=== PATIENT | male | born 1990 | race Caucasian/White ===

== ENCOUNTER → 2022-10-19 15:02 | Outpatient (BNVA) | payer MEDICAID, SELFPAY | PROVIDERS: Referring Provider Nurse Practitioner; Visit Provider Internal Medicine | DX: E11.9 Type 2 diabetes mellitus without complications (principal) | CPT/HCPCS: 80048; 84681; 86337; 86341 ==

== ENCOUNTER 2024-06-07 18:22 | Inpatient (IN) | payer OTHER, MEDICAID, SELFPAY ==
[2024-06-07] VITALS (11 sets, daily range): BP systolic 100–126; BP diastolic 46–76; PULSE 87–102; RESP 17–20; TEMP 36.6; O2SAT 98–100; BMI 19.8
[2024-06-07 18:51] LABS: Glucose Point of Care > 600 mg/dL (70-110)
--- NOTE | 2024-06-07 18:57 | XRR_ITS ---
PROCEDURE INFORMATION: Exam: XR Chest Exam date and time: 06/07/2024 7:26 PM Age: 34 years old Clinical indication: Pain; Chest pressure; Additional info: Chest pain TECHNIQUE: Imaging protocol: Radiologic exam of the chest. Views: 1 view. COMPARISON: No relevant prior studies available. FINDINGS: Lungs: Unremarkable. No consolidation. Pleural spaces: Unremarkable. No pleural effusion. No pneumothorax. Heart/Mediastinum: Unremarkable. No cardiomegaly. Bones/joints: Unremarkable. XR/XR chest 1V portable [id number] IMPRESSION: No acute findings.
--- NOTE | 2024-06-07 19:01 | W.ED.WEAKNES ---
HPI - Weakness General: Chief complaint: Weakness Stated complaint: weak, leg sore, tired, Time Seen by Provider: 06/07/24 18:49 History of Present Illness: Patient is a type I diabetic who has been out of all of his insulin for over 2 weeks. For the prior 2 weeks he was out of his strips and was only dosing 10 units of Lantus and 10 units of NovoLog daily. He has been feeling weak with a constant unquenchable thirst urinating a lot. Patient reports he is homeless but he just got into a detention, patient has been in DKA in the past. Last time was about 3 months ago. Blood sugar in the read high in triage Review of Systems General: Reports: 10 or more systems reviewed and unremarkable except in HPI and below PFSH ED PFSH: Medical History Asthma Diabetes Family History Other Hypertension Physical Exam Const: COMMON NORMALS: no acute distress, average body habitus, patient oriented x3, no limitations, healthy appearing, alert and well nourished HENMT: COMMON NORMALS: normocephalic, atraumatic, hearing grossly normal bilaterally, external ears normal, Normal external nose present and moist oral mucous membranes HEAD & SCALP: normocephalic and atraumatic NOSE: Normal external nose present EXTERNAL EAR: Yes external ears normal Neck/C-Spine: COMMON NORMALS: no JVD Chest: COMMONS NORMALS: normal inspection of the chest and normal palpation of entire chest wall Resp: COMMON NORMALS: normal respiratory effort, No retractions, No use of accessory muscles and clear to auscultation bilaterally AUSCULTATION: clear to auscultation bilaterally Cardio: COMMON NORMALS: no JVD, regular rate, regular rhythm, S1 normal heart sound present, S2 normal heart sound present, No gallops present (Cardio), No clicks present (Cardio), No murmurs present (Cardio) and No rub (Cardio) RATE: regular rate RHYTHM: regular rhythm HEART SOUNDS: S1 normal heart sound present and S2 normal heart sound present GI: COMMON NORMALS: Normal to inspection, nondistended, normoactive bowel sounds present, Soft to palpation, non-tender, No hepatosplenomegaly present and no masses PALPATION: Yes Soft to palpation and Yes No hepatosplenomegaly present Neuro: COMMON NORMALS: patient oriented x3 SENSORIUM/ORIENTATION: Yes alert Course Vital Signs: Vital signs: Vital Signs Temperature 97.8 F 06/07/24 18:39 Pulse Rate 98 06/07/24 19:16 Respiratory Rate 18 06/07/24 18:39 Blood Pressure 100/46 06/07/24 19:16 Pulse Oximetry 100 06/07/24 19:16 Oxygen Delivery Me thod Room Air 06/07/24 19:16 MDM - Weakness Medical Decision Making Patient blood sugar came back at 736, his pH is 7.2 with serum positive ketones, patient was bolused 20 units of fast acting insulin and a liter normal saline, Dr. Paul was consulted who agreed to place patient in ICU for further evaluation and treatment. We will keep the patient on 100 cc of normal saline an hour and start the DKA protocol. Medical Records I reviewed the patient's medical records. Lab Data I reviewed the patient's lab results. 06/07/24 19:01 06/07/24 19:01 Laboratory Results WBC 6.37 10^3/uL (3.29-11.43) 06/07/24 19:01 RBC 5.18 10^6/uL (3.85-5.65) 06/07/24 19:01 Hgb 15.40 g/dL (11.27-16.99) 06/07/24 19:01 Hct 45.2 % (37-53) 06/07/24 19: MCV 87.3 fl (82-101) 06/07/24 19: MCH 29.7 pg (27-33) 06/07/24 19:01 MCHC 34.1 g/dL (30-55) 06/07/24 19:01 RDW 12.0 % (12.1-15.1) L 06/07/24 19: Plt Count 288 10^3/cmm (157-399) 06/07/24 19: MPV 9.7 fL (7.4-10.4) 06/07/24 19: Neut % (Auto) 61.6 % 06/07/24 19: Lymph % (Auto) 27.3 % 06/07/24 19: [place] % (Auto) 7.5 % 06/07/24 19:01 Eos % (Auto) 2.0 % 06/07/24 19:01 Baso % (Auto) 1.1 % 06/07/24 19:01 Neut # (Auto) 3.92 10^3/uL (1.8-7.7) 06/07/24 19:01 Lymph # (Auto) 1.7 10^3/uL (0.8-4.8) 06/07/24 19:01 [place] # (Auto) 0.5 10^3/uL (0.2-0.9) 06/07/24 19:01 Eos # (Auto) 0.1 10^3/uL (0.0-0.8) 06/07/24 19:01 Baso # (Auto) 0.1 10^3/uL (0.0-0.1) 06/07/24 19:01 Nucleated RBC % (auto) 0 % 06/07/24 19:01 Nucleated RBCs # 0.0 /100WBC 06/07/24 19:01 Specimen Type Arterial 06/07/24 19:10 Sample Site Brachial, right 06/07/24 19:10 ABG pH 7.26 (7.35-7.45) L 06/07/24 19:10 ABG pCO2 20.0 mmHg (35-45) L 06/07/24 19:10 ABG pO2 114.0 mmHg (80.0-100.0) H 06/07/24 19:10 ABG PO2/FiO2 Ratio 542 06/07/24 19:10 ABG HCO3 8.9 mmol/L (22-26) L 06/07/24 19:10 ABG O2 Saturation 98.8 06/07/24 19:10 ABG Base Excess -16.0 mmol/L (-2.0-2.0) L 06/07/24 19:10 Yang Test N/a 06/07/24 19:10 A-a O2 Gradient 1.1 mmHg (5-10) L 06/07/24 19:10 Hematocrit 43.4 % (42-52) 06/07/24 19:10 Hgb O2 Saturation 95.5 % (95-100) 06/07/24 19:10 Carboxyhemoglobin 2.6 %THgb (0.4-20.1) 06/07/24 19:10 Methemoglobin 0.7 % (0.4-1.5) 06/07/24 19:10 Total Hemoglobin 14.2 g/dL (14-18) 06/07/24 19:10 Sodium 129.0 mmol/L (131-143) L 06/07/24 19:10 Potassium 3.9 mmol/L (3.5-5.0) 06/07/24 19:10 Glucose 667.0 mg/dL (70-115) H 06/07/24 19:10 Ionized Calcium 1.2 mmol/L (1.1-1.4) 06/07/24 19:10 O2 Delivery Device None 06/07/24 19:10 FiO2 21.0 % 06/07/24 19:10 Hearing Instrument Specialist ID Logan 06/07/24 19:10 Sodium 125 mmol/L (136-145) L 06/07/24 19:01 Potassium 4.3 mmol/L (3.5-5.1) 06/07/24 19:01 Chloride 89 mmol/L (98-107) L 06/07/24 19:01 Carbon Dioxide 13 mmol/L (22-29) L 06/07/24 19:01 Anion Gap 27.3 (5-19) H 06/07/24 19:01 BUN 11 mg/dL (6-20) 06/07/24 19:01 Creatinine 0.9 mg/dL (0.7-1.2) 06/07/24 19:01 GFR Calculation 96.0 mL/min (90-130) 06/07/24 19:01 Glucose 736 mg/dL (65-115) H* 06/07/24 19:01 POC Glucose > 600 mg/dL (70-110) H* 06/07/24 18:41 Calculated Osmolality 295 mOsm/kg (285-295) 06/07/24 19:01 Calcium 8.5 mg/dL (8.5-10.5) 06/07/24 19:01 Magnesium 2.0 mg/dL (1.7-2.3) 06/07/24 19:01 Total Bilirubin 0.2 mg/dL (0.15-1.2) 06/07/24 19:01 AST 14 U/L (0-40) 06/07/24 19:01 ALT 22 U/L (0-41) 06/07/24 19:01 Alkaline Phosphatase 108 U/L (40-130) 06/07/24 19:01 Troponin T Baseline < 6 ng/L (0-15) 06/07/24 19:01 Total Protein 6.6 g/dL (6.6-8.7) 06/07/24 19:01 Albumin 4.3 g/dL (3.5-5.2) 06/07/24 19:01 Globulin 2.3 g/dL (1.3-4.6) 06/07/24 19:01 Serum Ketones Positive (Negative) H 06/07/24 19:01 All radiology interpretation(s) finalized by discharge Discharge Plan Discharge Patient Disposition: Admitted As Inpatient Clinical Impression: DKA (diabetic ketoacidosis), Non-compliance Condition: Stable Prescriptions: No Action (DME) Dexcom G7 Surgical Physician Assistant Misc See Rx Instructions .Route Qty: 1 0RF Rx Instructions: As directed (DME) Dexcom G7 Sensor Device See Rx Instructions .[facility] Qty: 6 0RF Rx Instructions: Change every 10days (DME) OneTouch Ultra Test Strip See Rx Instructions .Route Qty: 300 0RF Rx Instructions: Check up to 3 times a day insulin glargine [Lantus Solostar U-100 Insulin] 100 unit/mL (3 mL) insulin pen 12 unit SUBCUT DAILY insulin lispro 100 unit/mL insulin pen See Rx Instructions SUBCUT DAILY Rx Instructions: per sliding scale max 15 units subcutaneously daily; (DME) True Metrix Glucose Test Strip Strip See Rx Instructions .Route Qty: 400 2RF Rx Instructions: check uo to 4 times a day insulin glargine [Lantus Solostar U-100 Insulin] 100 unit/mL (3 mL) insulin pen 20 unit SUBCUT DAILY 90 Days Qty: 18 2RF insulin aspart U-100 [Novolog FlexPen U-100 Insulin] 100 unit/mL (3 mL) insulin pen 20 unit SUBCUT TID 90 Days Qty: 54 2RF Rx Instructions: 20 units TID before meals (DME) pen needle, diabetic [Comfort EZ Pen [place]] 32 gauge x 5/32 needle See Rx Instructions .Route Qty: 100 0RF Rx Instructions: As directed Coding Level of Care Code ED Brand Director for Chg Fwd Related Data Home Medications Medication Instructions Recorded Confirmed insulin glargine 100 unit/mL (3 12 unit SUBCUT DAILY 10/19/22 01/18/23 mL) subcutaneous pen (Lantus Solostar U-100 Insulin) insulin lispro 100 unit/mL See Rx Instructions SUBCUT DAILY 10/19/22 01/18/23 subcutaneous pen Previous Rx's Medication Instructions Recorded blood sugar diagnostic (True #400 ea 10/19/22 Metrix Glucose Test Strip) insulin aspart U-100 100 unit/mL 20 unit (0.2 mL) SUBCUT TID 10/19/22 (3 mL) subcutaneous pen (Novolog days #54 mL FlexPen U-100 Insulin aspart) insulin glargine 100 unit/mL (3 20 unit (0.2 mL) SUBCUT DAILY 10/19/22 mL) subcutaneous pen (Lantus days #18 mL Solostar U-100 Insulin) blood sugar diagnostic (OneTouch #300 ea 01/18/23 Ultra Test strips) blood-glucose meter,continuous #1 01/18/23 (Dexcom G7 Surgical Physician Assistant) blood-glucose sensor (Dexcom G7 #6 ea 01/18/23 Sensor device) pen needle, diabetic 32 gauge x #100 ea 09/28/23 (Comfort EZ Pen [place]) Allergies Allergy/AdvReac Type Severity Reaction Status Date / Time No Known Allergies Allergy Verified 06/07/24 18:46
--- NOTE | 2024-06-07 19:05 | ECG_ITS ---
[facility] Test Date: 2024-06-07 Pat Name: John Lopez Department: Room: Gender: Male Carpenter Packing: : 1990 Requested By: Bucky Lang Order Number: [id number] Rosa Rendon MD: Tisha Murguia M.D. Measurements Intervals [place] Rate: 96 P: 62 MN: 148 QRS: 75 QRSD: 94 T: 65 QT: 364 QTc: 460 Interpretive Statements SINUS RHYTHM No previous ECG available for comparison Electronically Signed On 06-07-2024 23:28:03 CDT by Tisha Murguia M.D. [id number]
[2024-06-07] MEDS: sodium chloride 0.9% 1,000 ML 999 ML IV (19:12)
[2024-06-07] MEDS: insulin regular-human 100 units/1 mL 20 UNIT IVP (19:16)
[2024-06-07 19:22] LABS: ABG PH Result 7.26 (7.35-7.45); Alveolar-Arterial Oxygen Gradi 1.1 mmHg (5-10); Arterial Blood Gas Hematocrit 43.4 % (42-52); Blood Gas Operator Identificat SAM; Blood Gas Sample Site Brachial, right; Blood Gas Sample Type Arterial; Carboxyhemoglobin 2.6 %THgb (0.4-20.1); HCO3 ABG 8.9 mmol/L (22-26); HGB O2 Sat 95.5 % (95-100); Ionized Calcium Level - ABG 1.2 mmol/L (1.1-1.4); Methemoglobin 0.7 % (0.4-1.5); Oxygen Saturation ABG 98.8; PO2 FiO2 Ratio Arterial Blood 542; Potassium Level - ABG 3.9 mmol/L (3.5-5.0); Total Hemoglobin 14.2 g/dL (14-18)
[2024-06-07 19:23] LABS: Ketone (Acetest) Serum Positive (Negative)
[2024-06-07 19:27] LABS: Basophils # 0.1 10^3/uL (0.0-0.1); Basophils % 1.1 %; Eosinophils # 0.1 10^3/uL (0.0-0.8); Hematocrit 45.2 % (37-53); Lymphocytes # 1.7 10^3/uL (0.8-4.8); Lymphocytes % 27.3 %; Mean Corpuscular HGB Conc 34.1 g/dL (30-55); Mean Corpuscular Hemoglobin 29.7 pg (27-33); Mean Corpuscular Volume 87.3 fl (82-101); Mean Platelet Volume 9.7 fL (7.4-10.4); Monocytes # 0.5 10^3/uL (0.2-0.9); Monocytes % 7.5 %; Neutrophils # 3.92 10^3/uL (1.8-7.7); Neutrophils % 61.6 %; Nucleated Red Blood Cells % 0 %; Platelet Count 288 10^3/cmm (157-399); Red Blood Count 5.18 10^6/uL (3.85-5.65); White Blood Count 6.37 10^3/uL (3.29-11.43)
[2024-06-07 19:29] LABS: Troponin(5th) Baseline < 6 ng/L (0-15)
[2024-06-07 19:31] LABS: Alanine Aminotransferase 22 U/L (0-41); Albumin Level 4.3 g/dL (3.5-5.2); Alkaline Phosphatase 108 U/L (40-130); Aspartate Amino Transferase 14 U/L (0-40); Blood Urea Nitrogen 11 mg/dL (6-20); Calcium 8.5 mg/dL (8.5-10.5); Carbon Dioxide 13 mmol/L (22-29); Chloride 89 mmol/L (98-107); Creatinine Clr Calc Pharmacy 93.0131; Globulin 2.3 g/dL (1.3-4.6); Osmolality Calculated 295 mOsm/kg (285-295); Sodium 125 mmol/L (136-145); Total Bilirubin 0.2 mg/dL (0.15-1.2); Total Protein 6.6 g/dL (6.6-8.7)
[2024-06-07 19:33] LABS: Anion Gap 27.3 (5-19); Glucose 736 mg/dL (65-115); Potassium 4.3 mmol/L (3.5-5.1)
[2024-06-07] MEDS: sodium chloride 0.9% 1,000 ML 100 ML IV (19:53)
[2024-06-07] MEDS: INSULIN REGULAR IN 0.9 % NACL 100 UNIT/100 ML BAG IV (19:53)
[2024-06-07 20:08] LABS: Glucose Point of Care 468 mg/dL (70-110)
[2024-06-07 20:23] LABS: Lactic Sepsis W/Reflex 0.9 mmol/L (0.5-2.2)
[2024-06-07 20:24] LABS: Amphetamines Screen Urine Negative (Negative); Barbiturates Screen Urine Negative (Negative); Benzodiazepines Screen Urine Negative (Negative); Cocaine Screen Urine Negative (Negative); Opiate Screen Urine Negative (Negative); PCP Screen Urine Negative (Negative); THC Screen Urine Negative (Negative)
[2024-06-07 20:26] LABS: Add Urine Microscopic? NO
--- NOTE | 2024-06-07 20:29 | ECG_ITS ---
[facility] Test Date: 2024-06-07 Pat Name: John Lopez Department: Room: [facility]04 Gender: Male Take Away Attendant: : 1990 Requested By: Bucky Lang Order Number: [id number] Justice MD: Tisha Murguia M.D. Measurements Intervals [place] Rate: 103 P: 59 MT: 144 QRS: 70 QRSD: 95 T: 53 QT: 352 QTc: 461 Interpretive Statements SINUS TACHYCARDIA ABNORMAL RHYTHM ECG Compared to ECG 06/07/2024 19:05:56 Sinus rhythm no longer present Electronically Signed On 06-07-2024 23:37:13 CDT by Tisha Murguia M.D. [id number]
[2024-06-07 20:31] LABS: Procalcitonin 0.05 ng/mL (0-0.5)
[2024-06-07 20:32] LABS: Bilirubin Urine Negative (Negative); Blood Urine Negative (Negative); Glucose Urine UA 3+ (Normal); Ketones Urine 3+ (Negative); Leukocyte Esterase Urine Negative (Negative); Nitrate Urine Negative (Negative); Protein Urine Negative (Negative); Urine Appearance Clear (CLEAR); Urine Color Yellow (Yellow); Urobilinogen Urine 0.2 mg/dL (Negative)
[2024-06-07 20:40] LABS: Charge for UA Resulting for Rev; Specific Gravity, Urine 1.034 (1.005-1.030)
[2024-06-07 20:51] LABS: Iron 83 ug/dL (59-158); Percent Saturation 26.4 % (20-50); Thyroid Stimulating Hormone 0.96 uIU/mL (0.27-4.20); Total Iron Binding Capacity 314 mcg/dl; Unsaturated Iron Binding 231 ug/dL (112-347); Vitamin B12 1114 pg/mL (232-1245)
[2024-06-07] MEDS: pantoprazole 40 mg SDV IVP (21:25)
[2024-06-07] MEDS: heparin 5,000 unit/mL INJ 1 mL 5000 UNIT SUBCUT (21:25)
[2024-06-07 21:36] LABS: Glucose Point of Care 289 mg/dL (70-110)
[2024-06-07 21:44] LABS: Troponin 5 2HR 7.18 ng/L (0-15); Troponin 5 2HR Delta 1.18001 ABS# (0-10)
[2024-06-07 21:45] LABS: Anion Gap 20.4 (5-19); Blood Urea Nitrogen 10 mg/dL (6-20); Calcium 8.2 mg/dL (8.5-10.5); Carbon Dioxide 16 mmol/L (22-29); Chloride 101 mmol/L (98-107); Creatinine Clr Calc Pharmacy 119.5883; Glomerular Filtration Rate 128.3 mL/min (90-130); Glucose 274 mg/dL (65-115); Osmolality Calculated 287 mOsm/kg (285-295); Potassium 3.4 mmol/L (3.5-5.1); Sodium 134 mmol/L (136-145)
--- NOTE | 2024-06-07 22:21 | PM.HP ---
Providers/Chief Complaint Admitting Physician: Lucas Robles MD Chief Complaint: week, leg sore, tired, History of Present Illness John Lopez is a 34 year old male with type 1 diabetes mellitus who supposed to be on insulin, however has been out of his insulin for the past several weeks due to variety of issues including homelessness lack of affordability etc. He presents to the emergency room today with chief complaints of generalized fatigue projecting over several weeks. He was found to have evidence of diabetic ketoacidosis on labs and has been admitted to the ICU for treatment of DKA. He denies any recent infections. Denies any recent nausea vomiting diarrhea abdominal pain cough chest pain etc. Patient used to be on insulin pens, however has had trouble with transportation and affordability recently. He currently lives in a homeless usp. Review of Systems General: Reports: 10 or more systems reviewed and unremarkable except in HPI and below Const: Denies: fever(s), chills or body aches Eyes: Denies: change in vision, blurry vision or photophobia ENMT: Reports: hoarseness; Denies: throat pain, enlarged tonsils, odynophagia or nasal congestion Card: Denies: chest pain, palpitations, irregular heart rhythm, edema, swelling of feet/ankles, lightheadedness, pre-syncope, dyspnea on exertion or orthopnea Resp: Denies: dyspnea, productive cough, non-productive cough, wheezing, stridor, pain on inspiration, change in phlegm color, hemoptysis or chest congestion GI: Denies: abdominal pain, nausea, vomiting, hematemesis, coffee ground emesis, dysphagia, heartburn, diarrhea, constipation, GI cramping, change in stool character, hematochezia or melena : Denies: flank pain, dysuria, urinary frequency, urinary urgency, urinary hesitancy or hematuria Musc: Denies: neck pain, back pain, extremity pain, joint swelling, joint warmth or deformity Neuro: Denies: headache(s), numbness in extremities, weakness in extremities, sensory changes, difficulty walking, frequent falls, dizziness, vertigo, behavioral changes, Slurred speech present or seizure-like activity Psych: Denies: anxiety, depression, suicidal ideation or homicidal ideation Endo: Denies: polyuria, polydipsia, tired all the time, cold intolerance or hot flashes Augie/Lymph: Denies: easy bruising or easy bleeding Medications/Allergies Home Medications Medication Instructions Recorded Confirmed Last Taken Type blood sugar diagnostic (True #400 10/19/22 01/18/23 Unknown Rx Metrix Glucose Test Strip) insulin aspart U-100 100 unit/mL 20 unit (0.2 mL) SUBCUT TID 10/19/22 01/18/23 Unknown Rx (3 mL) subcutaneous pen (Novolog days #54 mL FlexPen U-100 Insulin aspart) insulin glargine 100 unit/mL (3 12 unit SUBCUT DAILY 10/19/22 01/18/23 Unknown History mL) subcutaneous pen (Lantus Solostar U-100 Insulin) insulin glargine 100 unit/mL (3 20 unit (0.2 mL) SUBCUT DAILY 10/19/22 01/18/23 Unknown Rx mL) subcutaneous pen (Lantus days #18 mL Solostar U-100 Insulin) insulin lispro 100 unit/mL See Rx Instructions SUBCUT DAILY 10/19/22 01/18/23 Unknown History subcutaneous pen blood sugar diagnostic (OneTouch #300 01/18/23 01/18/23 Unknown Rx Ultra Test strips) blood-glucose meter,continuous #1 01/18/23 01/18/23 Unknown Rx (Dexcom G7 Pathology Manager) blood-glucose sensor (Dexcom G7 #6 01/18/23 01/18/23 Unknown Rx Sensor device) pen needle, diabetic 32 gauge x #100 09/28/23 Unknown Rx 5/32 (Comfort EZ Pen [place]) Allergies Allergy/AdvReac Type Severity Reaction Status Date / Time No Known Allergies Allergy Verified 06/07/24 18:46 PFSH Acute PFSH: Medical History Asthma Diabetes Family History Other Hypertension Vitals/I&O/Wt Last Vital Signs Temp 97.9 F 06/07/24 20:37 Pulse 92 06/07/24 22:00 Resp 17 06/07/24 22:00 BP 109/69 06/07/24 22:00 Pulse Ox 98 06/07/24 22:00 O2 Del Method Room Air 06/07/24 20:37 06/07/24 06/07/24 06/07/24 06:59 14:59 22:59 Intake Total 1012.817 / 1012.817 Balance 1012.817 / 1012.817 Weight last 48 hrs Weight 51.256 kg Physical Exam Narrative: General: No acute distress, AO x3 HEENT: PERRLA, pupils bilaterally equal and reactive, pallors not present Chest: Normal vesicular breath sounds, no added sounds, equal good air entry bilaterally CVS: S1-S2 regular, no murmurs, no tachycardia, no gallops, no rubs Abdomen: Soft, nontender, no organomegaly, bowel sounds present Neuro: No focal deficits, no facial deformity, AO x3, power 5/5 in all limbs Data 06/07/24 19:01 06/08/24 02:15 Other Labs: NAME: John Lopez LOC: ICU U #: [id number] AGE/SX: 34/M ROOM: ICU RE06/07/[address]: Lucas Robles MD : 1990 BED: 1 DIS: FAX #: STATUS: ADM IN TLOC: Spec : [id number] [place]: 06/07/24 Status: COMP Req : [id number] Recd: 06/07/24-[address]: Bucky Lang DO Ordered: CMP, MG Test Low Normal High Flag Reference Site Sodium 125 L 136-145 mmol/L Potassium 4.3 3.5-5.1 mmol/L SLIGHT HEMOLYSIS NOTED Chloride 89 L 98-107 mmol/L Carbon Dioxide 13 L 22-29 mmol/L Anion Gap 27.3 H 5-19 BUN 11 6-20 mg/dL Creatinine 0.9 0.7-1.2 mg/dL GFR 96.0 90-130 mL/min The MDRD formula for estimation of GFR was developed in a population of adults (>19 years) with slowly declining or stable reduced kidney function. The MDRD formula should not be used to predict GFR in unstable patients or in children. It has not seen validated in patients >70 years. A GFR estimate between 15-59 for >=3 months is classified as chronic kidney disease (stage 3 or 4). Glu 736 *H 65-115 mg/dL CRITICAL RESULTS CALLED BY Shea Perez AND READ BACK BY MADISON @ 1931. Osmo Calc 295 285-295 mOsm/kg CA 8.5 8.5-10.5 mg/dL MG 2.0 1.7-2.3 mg/dL Total Bilirubin 0.2 0.15-1.2 mg/dL AST/SGOT 14 0-40 U/L ALT/SGPT 22 0-41 U/L Total Protein 6.6 6.6-8.7 g/dL Alb 4.3 3.5-5.2 g/dL Glob 2.3 1.3-4.6 g/dL Alk Phos 108 40-130 U/L NAME: John Lopez LOC: ICU U #: [id number] AGE/SX: 34/M ROOM: [facility] RE06/07/[address]: Lucas Robles MD : 1990 BED: 1 DIS: FAX #: STATUS: ADM IN TLOC: Spec : [id number] [place]: 06/07/24 Status: COMP Req : [id number] Recd: 06/07/[address]: Bucky Lang DO Ordered: ABG Full Test Low Normal High Flag Reference Site ABG PH Result 7.26 L 7.35-7.45 ABG PCO2 20.0 L 35-45 mmHg ABG PO2 114.0 H 80.0-100.0 mmHg ABG HCO3 8.9 L 22-26 mmol/L ABG BE -16.0 L -2.0-2.0 mmol/L ABG O2 Sat 98.8 FIO2 21.0 % NA - ABG 129.0 L 131-143 mmol/L K - ABG 3.9 3.5-5.0 mmol/L ArtBld P02 FiO2 542 BG OP ID PATRICIA Yang Test N/A O2 Device NONE Sample Type Arterial Sample Site Brachial, right ABG Hematocrit 43.4 42-52 % A-aDO2 1.1 L 5-10 mmHg CA++-ABG 1.2 1.1-1.4 mmol/L tHb 14.2 14-18 g/dL O2Hb 95.5 95-100 % O2Hb 2.6 0.4-20.1 %THgb MetHb 0.7 0.4-1.5 % Glu-ABG 667.0 H 70-115 mg/dL NAME: John Lopez LOC: ICU U #: [id number] AGE/SX: 34/M ROOM: [facility] RE06/07/[address]: Lucas Robles MD : 1990 BED: 1 DIS: FAX #: STATUS: ADM IN TLOC: Spec : [id number] [place]: 06/07/24 Status: COMP Req : [id number] Recd: 06/07/[address]: Bucky Lang DO Ordered: Ketone Serum Test Low Normal High Flag Reference Site Ketone Serum Positive H Negative A&P Assessment and plan (1) DKA (diabetic ketoacidosis): Diabetic ketoacidosis: Start patient on insulin drip as per DKA/HHS protocol with target blood sugars between 100-130 normal saline at 100 cc/h. hourly fingerstick checks while on insulin drip switch to D5 NS once blood sugar less than 250. Monitor BMP every 6 hours. Once potassium less than 4 we will add 20 mg of potassium to IV fluids. Monitor saturations. Maintain over 90%. Transition to sliding scale and long-acting insulin once anion gap resolves. Qualifiers: Diabetes mellitus complication detail: without coma Diabetes mellitus type: type 1 Qualified Code(s): E10.10 - Type 1 diabetes mellitus with ketoacidosis without coma Attestations Medical Necessity Statement*: > 2 midnight admission is anticipated Coding Level of Care Code Acute Code for Chg Fwd High MDM includes number and complexity of problems actively addressed during encounter, amount and/or complexity of data reviewed/ordered and described risk of complication, morbidity or mortality of management as documented Diagnoses DKA (diabetic ketoacidosis) E10.10 Diabetes mellitus complication detail: without coma Diabetes mellitus type: type 1
[2024-06-07] MEDS: dextrose 5%-sod chloride 0.9% 1,000 ML 100 ML IV (23:20)
[2024-06-08] VITALS (16 sets, daily range): BP systolic 94–110; BP diastolic 55–75; PULSE 71–102; RESP 14–24; TEMP 36.6–37; O2SAT 97–100
[2024-06-08 00:56] LABS: Troponin 5 6HR Delta 0.00001 ng/L (0-12)
--- NOTE | 2024-06-08 01:37 | PC.NURSE ---
Dr. Serrano called : Blood sugar down to 114 from 171 after titrating insulin drip down from 6 to 1 unit per hour this past hour. D5 ns at 100 infusing. Labs still pending last gap 20. Concern for low blood sugar as significant drop in last hour with only being on 1 unit/hr insulin. n/o obtained if next gap if less than 16 call back for transition orders to sliding scale insulin. Decrease insulin drip to 0.5 units/ hour now. continue hour blood sugars.
--- NOTE | 2024-06-08 02:50 | ECG_ITS ---
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 Measurements Intervals [place] Rate: 77 P: 72 [place]: 166 QRS: 76 QRSD: 93 T: 80 QT: 420 QTc: 477 Interpretive Statements SINUS RHYTHM Compared to ECG 06/07/2024 20:29:49 Sinus tachycardia no longer present Electronically Signed On 06-08-2024 18:19:17 CDT by Alex Foster M.D. [id number]
[2024-06-08 03:00] LABS: Glucose Point of Care 171 mg/dL (70-110)
[2024-06-08 03:00] LABS: Glucose Point of Care 211 mg/dL (70-110)
[2024-06-08 03:00] LABS: Glucose Point of Care 99 mg/dL (70-110)
[2024-06-08 03:00] LABS: Glucose Point of Care 114 mg/dL (70-110)
[2024-06-08 03:00] LABS: Glucose Point of Care 265 mg/dL (70-110)
[2024-06-08 03:03] LABS: Anion Gap 16.2 (5-19); Blood Urea Nitrogen 10 mg/dL (6-20); Calcium 8.3 mg/dL (8.5-10.5); Carbon Dioxide 18 mmol/L (22-29); Chloride 105 mmol/L (98-107); Glomerular Filtration Rate 189.2 mL/min (90-130); Glucose 100 mg/dL (65-115); Osmolality Calculated 281 mOsm/kg (285-295); Potassium 3.2 mmol/L (3.5-5.1); Sodium 136 mmol/L (136-145)
[2024-06-08] MEDS: potassium chloride ER 20 mEq Tablet 40 MEQ PO (04:50)
[2024-06-08] MEDS: insulin glargine 100 units/1 mL 20 UNIT SUBCUT ×2 (04:50→19:01)
[2024-06-08] MEDS: sodium chloride 0.9% 1,000 ML 100 ML IV ×3 (05:44→23:37)
[2024-06-08] MEDS: insulin lispro 100 unit/1 mL SUBCUT ×3 (05:51→21:17)
[2024-06-08 05:58] LABS: Glucose Point of Care 394 mg/dL (70-110)
[2024-06-08 06:07] LABS: Basophils # 0.1 10^3/uL (0.0-0.1); Basophils % 0.9 %; Eosinophils # 0.2 10^3/uL (0.0-0.8); Eosinophils % 2.7 %; Hematocrit 33.5 % (37-53); Lymphocytes # 2.5 10^3/uL (0.8-4.8); Mean Corpuscular HGB Conc 34.9 g/dL (30-55); Mean Corpuscular Hemoglobin 29.6 pg (27-33); Mean Corpuscular Volume 84.8 fl (82-101); Mean Platelet Volume 9.4 fL (7.4-10.4); Monocytes # 0.5 10^3/uL (0.2-0.9); Monocytes % 9.6 %; Neutrophils % 42.4 %; Nucleated Red Blood Cells % 0 %; Platelet Count 212 10^3/cmm (157-399); Red Blood Count 3.95 10^6/uL (3.85-5.65); Red Cell Distribution Width 12.1 % (12.1-15.1); White Blood Count 5.64 10^3/uL (3.29-11.43)
[2024-06-08 06:36] LABS: Alanine Aminotransferase 13 U/L (0-41); Albumin Level 3.3 g/dL (3.5-5.2); Alkaline Phosphatase 66 U/L (40-130); Anion Gap 13.7 (5-19); Aspartate Amino Transferase 10 U/L (0-40); Blood Urea Nitrogen 10 mg/dL (6-20); Calcium 8.2 mg/dL (8.5-10.5); Carbon Dioxide 16 mmol/L (22-29); Chloride 107 mmol/L (98-107); Creatinine Clr Calc Pharmacy 71.4408; Globulin 1.6 g/dL (1.3-4.6); Glomerular Filtration Rate 189.2 mL/min (90-130); Glucose 369 mg/dL (65-115); Magnesium 1.6 mg/dL (1.7-2.3); Osmolality Calculated 290 mOsm/kg (285-295); Phosphorus 2.9 mg/dL (2.5-4.5); Potassium 3.7 mmol/L (3.5-5.1); Sodium 133 mmol/L (136-145); Total Bilirubin 0.2 mg/dL (0.15-1.2); Total Protein 4.9 g/dL (6.6-8.7)
[2024-06-08 06:38] LABS: Cholesterol 200 mg/dL (0-200); HDL Cholesterol 29 mg/dL (60-100); LDL Cholesterol Calculated 120 mg/dL (50-129); LDL HDL Ratio 4.14 RATIO (0.00-3.22); Triglycerides 253 mg/dL (0-150)
[2024-06-08 06:51] LABS: Estmated Average Glucose 484; Hemoglobin A1C 18.5 % (4.0-6.0)
[2024-06-08 07:00] LABS: Folate Level 18.5 ng/mL (4.5-32.2)
[2024-06-08] MEDS: heparin 5,000 unit/mL INJ 1 mL 5000 UNIT SUBCUT ×2 (07:42→20:15)
--- NOTE | 2024-06-08 08:10 | PC.PHAR ---
WE called [facility] to verify directions and they said Basaglar and Novolog were filled 03/25/24 but never picked up by patient so they are there on hold .
[2024-06-08] MEDS: acetaminophen 325 mg Tablet 650 MG PO (09:12)
[2024-06-08 10:12] LABS: Anion Gap 15.4 (5-19); Blood Urea Nitrogen 10 mg/dL (6-20); Carbon Dioxide 18 mmol/L (22-29); Chloride 103 mmol/L (98-107); Glomerular Filtration Rate 189.2 mL/min (90-130); Glucose 305 mg/dL (65-115); Osmolality Calculated 285 mOsm/kg (285-295); Potassium 4.4 mmol/L (3.5-5.1); Sodium 132 mmol/L (136-145)
--- NOTE | 2024-06-08 10:39 | PC.NURSE ---
Upon discharge patient needs lancets, strips for glucometer, and needles for insulin pen. Brand is One Touch
[2024-06-08 10:48] LABS: Glucose Point of Care 245 mg/dL (70-110)
[2024-06-08] MEDS: magnesium sulfate premix 1 GM/100 ML PIGGYBACK IV (10:49)
[2024-06-08] MEDS: insulin lispro 100 unit/1 mL 10 UNIT SUBCUT ×2 (10:49→18:45)
--- NOTE | 2024-06-08 11:59 | P.PN_ITS ---
Subjective 2 Subjective: Admitted overnight for DKA. Examination laying comfortably in bed. Anion gap closed overnight and transitioned over to sliding scale. Patient denies any nausea, vomiting, headache. Has remained hemodynamically stable and afebrile on room air. Vitals/I&O/Wt Last Vital Signs Temp 97.9 F 06/08/24 04:00 Pulse 90 06/08/24 08:00 Resp 20 H 06/08/24 08:00 BP 98/59 06/08/24 08:00 Pulse Ox 99 06/08/24 08:00 O2 Del Method Room Air 06/08/24 06:00 06/07/24 06/08/24 06/08/24 22:59 06:59 14:59 Intake Total 1012.817 / 3853.762 8485.576 / 2101.393 Output Total 600 / 600 Balance 1012.817 / 1012.817 488.576 / 1501.393 Weight last 48 hrs Weight 54 kg Weight 24.494 kg Weight 54 kg Weight 51.256 kg Physical Exam 2 Narrative: General: No acute distress, AO x3 HEENT: PERRLA, pupils bilaterally equal and reactive, pallors not present Chest: Normal vesicular breath sounds, no added sounds, equal good air entry bilaterally CVS: S1-S2 regular, no murmurs, no tachycardia, no gallops, no rubs Abdomen: Soft, nontender, no organomegaly, bowel sounds present Neuro: No focal deficits, no facial deformity, AO x3, power 5/5 in all limbs Data 06/08/24 05:59 06/08/24 09:45 A&P Assessment and plan (1) DKA (diabetic ketoacidosis): Most likely in setting of noncompliance to insulin at home. Type I diabetic. A1c of more than 18. Supposed to be on Humalog 20 units 3 times daily along with 20 units of Lantus at night. As per patient he is unable to get insulin lately because of lack of insurance. Anion gap is closed. High risk of opening up anion gap again given extremely elevated A1c. Continue to monitor BMP every 4 hour. Continue with carb consistent diet, normal saline at 100 cc/h. Add Humalog 10 units 3 times daily along with sliding scale. Change Lantus to 20 units twice daily. Will discuss further with case management about possible financial accounting manager versus Medicaid. Will try to get appointment with sales attendant building materials as an outpatient. He did follow-up with endocrinology as an outpatient before. Qualifiers: Diabetes mellitus complication detail: without coma Diabetes mellitus type: type 1 Qualified Code(s): E10.10 - Type 1 diabetes mellitus with ketoacidosis without coma (2) Non-compliance: (3) Diabetes type 1, uncontrolled: (4) Hyperlipemia, mixed: Appreciate lipid panel. Add atorvastatin 20 mg oral daily. Plan Full code Protonix OPD prophylaxis Transfer to [facility] floor. Attestations 2 Medical Necessity Statement*: Requires further hospitalization for management of recovering DKA in a patient with uncontrolled type 1 diabetes mellitus. Diagnoses DKA (diabetic ketoacidosis) E10.10 Diabetes mellitus complication detail: without coma Diabetes mellitus type: type 1 Non-compliance Z91.199 Diabetes type 1, uncontrolled Hyperlipemia, mixed E78.2
[2024-06-08 16:49] LABS: Glucose Point of Care 389 mg/dL (70-110)
[2024-06-08] MEDS: atorvastatin 40 mg Tablet 20 MG PO (20:15)
[2024-06-08] MEDS: pantoprazole 40 mg SDV IVP (20:15)
[2024-06-08 20:45] LABS: Glucose Point of Care 379 mg/dL (70-110)
[2024-06-09] VITALS: BP 100/62; PULSE 82; RESP 18; TEMP 36.7; O2SAT 96
[2024-06-09 04:00] VITALS: BP 106/65; PULSE 76; RESP 18; TEMP 36.6; O2SAT 99
[2024-06-09 04:58] VITALS: PULSE 64
[2024-06-09 05:48] LABS: Basophils # 0.1 10^3/uL (0.0-0.1); Eosinophils # 0.1 10^3/uL (0.0-0.8); Eosinophils % 2.1 %; Hematocrit 29.9 % (37-53); Lymphocytes # 2.5 10^3/uL (0.8-4.8); Lymphocytes % 47.3 %; Mean Corpuscular HGB Conc 35.1 g/dL (30-55); Mean Corpuscular Hemoglobin 29.4 pg (27-33); Mean Corpuscular Volume 83.8 fl (82-101); Mean Platelet Volume 9.8 fL (7.4-10.4); Monocytes # 0.5 10^3/uL (0.2-0.9); Monocytes % 10.3 %; Neutrophils # 2.03 10^3/uL (1.8-7.7); Neutrophils % 38.9 %; Nucleated Red Blood Cells % 0 %; Platelet Count 191 10^3/cmm (157-399); Red Blood Count 3.57 10^6/uL (3.85-5.65); Red Cell Distribution Width 12.4 % (12.1-15.1); White Blood Count 5.22 10^3/uL (3.29-11.43)
[2024-06-09 06:10] LABS: Alanine Aminotransferase 11 U/L (0-41); Alkaline Phosphatase 60 U/L (40-130); Anion Gap 11.1 (5-19); Aspartate Amino Transferase 18 U/L (0-40); Blood Urea Nitrogen 8 mg/dL (6-20); Calcium 7.8 mg/dL (8.5-10.5); Carbon Dioxide 23 mmol/L (22-29); Chloride 109 mmol/L (98-107); Globulin 1.4 g/dL (1.3-4.6); Glomerular Filtration Rate 244.8 mL/min (90-130); Glucose 264 mg/dL (65-115); Osmolality Calculated 298 mOsm/kg (285-295); Potassium 3.1 mmol/L (3.5-5.1); Sodium 140 mmol/L (136-145); Total Bilirubin 0.2 mg/dL (0.15-1.2); Total Protein 4.4 g/dL (6.6-8.7)
[2024-06-09 06:27] LABS: Glucose Point of Care 272 mg/dL (70-110)
[2024-06-09] MEDS: insulin lispro 100 unit/1 mL 10 UNIT SUBCUT (06:27)
[2024-06-09 07:37] VITALS: BP 103/64; PULSE 74; RESP 17; TEMP 36.6; O2SAT 96
[2024-06-09] MEDS: insulin lispro 100 unit/1 mL SUBCUT (09:05)
[2024-06-09] MEDS: insulin glargine 100 units/1 mL 20 UNIT SUBCUT (09:06)
[2024-06-09 10:10] VITALS: BMI 21.4
--- NOTE | 2024-06-09 10:21 | P.DS_ITS ---
Discharge Providers Date of Admission: 06/07/24 19:37 Date of Discharge: June 09, 2024 Attending Provider at Admission: Lucas Robles MD Attending Provider at Discharge: Lucas Robles MD Diagnoses at Discharge Discharge Diagnosis (1) DKA (diabetic ketoacidosis): Status: Acute Qualifiers: Diabetes mellitus complication detail: without coma Diabetes mellitus type: type 1 Qualified Code(s): E10.10 - Type 1 diabetes mellitus with ketoacidosis without coma (2) Non-compliance: Status: Acute (3) Diabetes type 1, uncontrolled: Status: Acute (4) Hyperlipemia, mixed: Status: Acute Reason for Visit Reason for Visit: week, leg sore, tired, Hospital Course Hospital Course John Lopez is a 34 year old male with type 1 diabetes mellitus who supposed to be on insulin, however has been out of his insulin for the past several weeks due to variety of issues including homelessness lack of affordability etc. He presents to the emergency room today with chief complaints of generalized fatigue projecting over several weeks. He was found to have evidence of diabetic ketoacidosis on labs and has been admitted to the ICU for treatment of DKA. He denies any recent infections. Denies any recent nausea vomiting diarrhea a bdominal pain cough chest pain etc. Patient used to be on insulin pens, however has had trouble with transportation and affordability recently. He currently lives in a homeless long term. He was admitted to the hospital further evaluation and management diabetic ketoacidosis. He responded well to the treatment and his anion gap closed and was transition over to insulin as per sliding scale. Patient was counseled in detail with family caseworker about getting his insulin through Medicaid insurance. He was also made an appointment to follow-up with primary care provider as an outpatient. He was advised in detail about taking Humalog 20 units with each meal along with Lantus 20 units twice daily. He was encouraged to be compliant to low carbohydrate diet and regular insulin use. He is to follow-up with his primary care provider on set appointment and with endocrinology within next 1 month. He should have a repeat A1c in 6 months. Physical Exam Narrative: General: No acute distress, AO x3 HEENT: PERRLA, pupils bilaterally equal and reactive, pallors not present Chest: Normal vesicular breath sounds, no added sounds, equal good air entry bilaterally CVS: S1-S2 regular, no murmurs, no tachycardia, no gallops, no rubs Abdomen: Soft, nontender, no organomegaly, bowel sounds present Neuro: No focal deficits, no facial deformity, AO x3, power 5/5 in all limbs Discharge Data Studies Completed and Pending Completed Studies During Hospitalization Category Date Time Status XR chest 1V portable [id number] Stat Exams 06/07/24 18:57 Completed Radiology Impressions Chest X-Ray 06/07/24 18:57 IMPRESSION: No acute findings. Laboratory Results WBC 5.22 10^3/uL (3.29-11.43) 06/09/24 05:32 RBC 3.57 10^6/uL (3.85-5.65) L 06/09/24 05:32 Hgb 10.50 g/dL (11.27-16.99) L 06/09/24 05:32 Hct 29.9 % (37-53) L 06/09/24 05:32 MCV 83.8 fl (82-101) 06/09/24 05:32 MCH 29.4 pg (27-33) 06/09/24 05:32 MCHC 35.1 g/dL (30-55) 06/09/24 05:32 RDW 12.4 % (12.1-15.1) 06/09/24 05:32 Plt Count 191 10^3/cmm (157-399) 06/09/24 05:32 MPV 9.8 fL (7.4-10.4) 06/09/24 05:32 Neut % (Auto) 38.9 % 06/09/24 05:32 Lymph % (Auto) 47.3 % 06/09/24 05:32 [place] % (Auto) 10.3 % 06/09/24 05:32 Eos % (Auto) 2.1 % 06/09/24 05:32 Baso % (Auto) 1.0 % 06/09/24 05:32 Neut # (Auto) 2.03 10^3/uL (1.8-7.7) 06/09/24 05:32 Lymph # (Auto) 2.5 10^3/uL (0.8-4.8) 06/09/24 05:32 [place] # (Auto) 0.5 10^3/uL (0.2-0.9) 06/09/24 05:32 Eos # (Auto) 0.1 10^3/uL (0.0-0.8) 06/09/24 05:32 Baso # (Auto) 0.1 10^3/uL (0.0-0.1) 06/09/24 05:32 Nucleated RBC % (auto) 0 % 06/09/24 05:32 Nucleated RBCs # 0.0 /100WBC 06/09/24 05:32 Specimen Type Arterial 06/07/24 19:10 Sample Site Brachial, right 06/07/24 19:10 ABG pH 7.26 (7.35-7.45) L 06/07/24 19:10 ABG pCO2 20.0 mmHg (35-45) L 06/07/24 19:10 ABG pO2 114.0 mmHg (80.0-100.0) H 06/07/24 19:10 ABG PO2/FiO2 Ratio 542 06/07/24 19:10 ABG HCO3 8.9 mmol/L (22-26) L 06/07/24 19:10 ABG O2 Saturation 98.8 06/07/24 19:10 ABG Base Excess -16.0 mmol/L (-2.0-2.0) L 06/07/24 19:10 Yang Test N/a 06/07/24 19:10 A-a O2 Gradient 1.1 mmHg (5-10) L 06/07/24 19:10 Hematocrit 43.4 % (42-52) 06/07/24 19:10 Hgb O2 Saturation 95.5 % (95-100) 06/07/24 19:10 Carboxyhemoglobin 2.6 %THgb (0.4-20.1) 06/07/24 19:10 Methemoglobin 0.7 % (0.4-1.5) 06/07/24 19:10 Total Hemoglobin 14.2 g/dL (14-18) 06/07/24 19:10 Sodium 129.0 mmol/L (131-143) L 06/07/24 19:10 Potassium 3.9 mmol/L (3.5-5.0) 06/07/24 19:10 Glucose 667.0 mg/dL (70-115) H 06/07/24 19:10 Ionized Calcium 1.2 mmol/L (1.1-1.4) 06/07/24 19:10 O2 Delivery Device None 06/07/24 19:10 FiO2 21.0 % 06/07/24 19:10 Plater Hot Dip ID [place] 06/07/24 19:10 Sodium 140 mmol/L (136-145) 06/09/24 05:32 Potassium 3.1 mmol/L (3.5-5.1) L 06/09/24 05:32 Chloride 109 mmol/L (98-107) H 06/09/24 05:32 Carbon Dioxide 23 mmol/L (22-29) 06/09/24 05:32 Anion Gap 11.1 (5-19) 06/09/24 05:32 BUN 8 mg/dL (6-20) 06/09/24 05:32 Creatinine 0.4 mg/dL (0.7-1.2) L 06/09/24 05:32 GFR Calculation 244.8 mL/min (90-130) H 06/09/24 05:32 Glucose 264 mg/dL (65-115) H 06/09/24 05:32 POC Glucose 272 mg/dL (70-110) H 06/09/24 06:22 Estimat Average Glucose 484 06/08/24 05:59 Hemoglobin A1c 18.5 % (4.0-6.0) H 06/08/24 05:59 Calculated Osmolality 298 mOsm/kg (285-295) H 06/09/24 05:32 Lactic Acid 0.9 mmol/L (0.5-2.2) 06/07/24 19:01 Calcium 7.8 mg/dL (8.5-10.5) L 06/09/24 05:32 Phosphorus 2.9 mg/dL (2.5-4.5) 06/08/24 05:59 Magnesium 1.6 mg/dL (1.7-2.3) L 06/08/24 05:59 Iron 83 ug/dL (59-158) 06/07/24 19:08 TIBC 314 mcg/dl 06/07/24 19:08 % Saturation 26.4 % (20-50) 06/07/24 19:08 Unsat Iron Binding 231 ug/dL (112-347) 06/07/24 19:08 Total Bilirubin 0.2 mg/dL (0.15-1.2) 06/09/24 05:32 AST 18 U/L (0-40) 06/09/24 05:32 ALT 11 U/L (0-41) 06/09/24 05:32 Alkaline Phosphatase 60 U/L (40-130) 06/09/24 05:32 Troponin T Baseline < 6 ng/L (0-15) 06/07/24 19:01 Troponin T 120 Minute 7.18 ng/L (0-15) 06/07/24 21:17 Delta Troponin T 1.07785 ABS# (0-10) 06/07/24 21:17 Troponin T Hi Sens 6Hr 6.00 ng/L (0-15) 06/08/24 00:27 Troponin T Hi Sens 6Hr Delta 0.09911 ng/L (0-12) 06/08/24 00:27 Total Protein 4.4 g/dL (6.6-8.7) L 06/09/24 05:32 Albumin 3.0 g/dL (3.5-5.2) L 06/09/24 05:32 Globulin 1.4 g/dL (1.3-4.6) 06/09/24 05:32 Triglycerides 253 mg/dL (0-150) H 06/08/24 05:59 Cholesterol 200 mg/dL (0-200) 06/08/24 05:59 LDL Cholesterol, Calc 120 mg/dL (50-129) 06/08/24 05:59 HDL Cholesterol 29 mg/dL (60-100) L 06/08/24 05:59 LDL/HDL Ratio 4.14 RATIO (0.00-3.22) H 06/08/24 05:59 Cholesterol/HDL Ratio 6.90 mg/dL (1.0-5.00) H 06/08/24 05:59 Vitamin B12 1114 pg/mL (232-1245) 06/07/24 19:08 Folate 18.5 ng/mL (4.5-32.2) 06/08/24 05:59 Procalcitonin 0.05 ng/mL (0-0.5) 06/07/24 19:01 TSH 0.96 uIU/mL (0.27-4.20) 06/07/24 19:08 Urine Color Yellow (Yellow) 06/07/24 20:10 Urine Appearance Clear (CLEAR) 06/07/24 20:10 Urine pH 5.0 (5-7) 06/07/24 20:10 Ur Specific [place] 1.034 (1.005-1.030) H 06/07/24 20:10 Urine Protein Negative (Negative) 06/07/24 20:10 Urine Glucose (UA) 3+ (Normal) H 06/07/24 20:10 Urine Ketones 3+ (Negative) H 06/07/24 20:10 Urine Blood Negative (Negative) 06/07/24 20:10 Urine Nitrate Negative (Negative) 06/07/24 20:10 Urine Bilirubin Negative (Negative) 06/07/24 20:10 Urine Urobilinogen 0.2 mg/dL (Negative) 06/07/24 20:10 Ur Leukocyte Esterase Negative (Negative) 06/07/24 20:10 Amorphous Sediment Not Reportable 06/07/24 20:10 Urine Opiates Screen Negative ng/mL (Negative) 06/07/24 20:10 Ur Barbiturates Screen Negative ng/mL (Negative) 06/07/24 20:10 Ur Phencyclidine Scrn Negative ng/mL (Negative) 06/07/24 20:10 Ur Amphetamines Screen Negative ng/mL (Negative) 06/07/24 20:10 U Benzodiazepines Scrn Negative ng/mL (Negative) 06/07/24 20:10 Urine Cocaine Screen Negative ng/mL (Negative) 06/07/24 20:10 U Marijuana (THC) Screen Negative ng/mL (Negative) 06/07/24 20:10 Serum Ketones Positive (Negative) H 06/07/24 19:01 Vitals Last Vital Signs Temp 97.8 F 06/09/24 07:37 Pulse 74 06/09/24 07:37 Resp 17 06/09/24 07:37 BP 103/64 06/09/24 07:37 Pulse Ox 96 06/09/24 07:37 O2 Del Method Room Air 06/09/24 07:37 Discharge Plan Discharge Patient Disposition: Home Condition: Stable Prescriptions: Continued albuterol sulfate 90 mcg/actuation HFA aerosol inhaler 1 puff INHALATION PRN PRN (Reason: constricted breathing) (DME) OneTouch Ultra Test Strip See Rx Instructions .Route Qty: 300 0RF Rx Instructions: Check up to 3 times a day (DME) True Metrix Glucose Test Strip Strip See Rx Instructions .Route Qty: 400 2RF Rx Instructions: check uo to 4 times a day (DME) pen needle, diabetic 32 gauge x 5/32 needle See Rx Instructions .Route Qty: 100 0RF Rx Instructions: As directed Changed insulin aspart U-100 [Novolog FlexPen U-100 Insulin] 100 unit/mL (3 mL) insulin pen 20 unit SUBCUT TID Qty: 15 3RF insulin glargine [Basaglar KwikPen U-100 Insulin] 100 unit/mL (3 mL) insulin pen 20 unit SUBCUT BID Qty: 15 3RF No Action (DME) Dexcom G7 Revenue Tax Specialist Misc See Rx Instructions .Route Qty: 1 0RF Rx Instructions: As directed (DME) Dexcom G7 Sensor Device See Rx Instructions .ROUTE .MEDSUPPLY Qty: 6 0RF Rx Instructions: Change every 10days Discharge Orders: Discharge Order (Routine); Ordered 06/09/24 Ordered By: Lucas oRbles Referrals: [facility]) [Outside] Eva Ramírez NP [Nurse Practitioner] - 06/16/24 10:00 am Zane Villa MD [Physician] - 06/19/24 8:30 am () Discharge Diet: Diabetic Discharge Activity: Resume usual activity and Increase activity as tolerated Patient Instructions: Insulin Aspart, Recombinant (By injection) (Novolog, Novolog..., Insulin Glargine (By injection), Diabetic Gastroparesis (DC), Diabetic Ketoacidosis (DC), Basic Carbohydrate Counting (DC), Diabetes Type 1: Management (DC), Opioid Safety Activity Restrictions/Additional Instructions: You should take Humalog 20 units before each meal. Take Lantus 20 units twice daily. Please follow-up with your primary care provider within next 1 week on set appointment on 06/16 and with radio presenter on 06/19. Discharge Attestations Time Spent in Discharge Care*: greater than 30 min Specific Discharge Activities: educating patient, discussing with pcp/other providers, discussing with transplant case manager/social workers/dc planners, documenting/other paperwork and evaluating patient/reviewing data Status at Discharge: Cognitive status at discharge: cognitively intact , Behavioral status at discharge: cooperative , Functional status at discharge: independent ambulation , Overall status at discharge: patient is back to baseline Quality Metrics Clinical Quality Measures [ No reported AMI, CVA or VTE this stay] Coding Level of Care Code 17381 Total time (in minutes) for Discharge: 60 Diagnoses DKA (diabetic ketoacidosis) E10.10 Diabetes mellitus complication detail: without coma Diabetes mellitus type: type 1 Non-compliance Z91.199 Diabetes type 1, uncontrolled Hyperlipemia, mixed E78.2
[2024-06-09 10:25] LABS: Glucose Point of Care 253 mg/dL (70-110)
[2024-06-09] MEDS: potassium chloride ER 20 mEq Tablet 40 MEQ PO (10:47)
[2024-06-09 11:17] VITALS: BP 102/70; PULSE 87; RESP 18; O2SAT 96
[2024-06-09 12:30] VITALS: BP 102/70; PULSE 87; RESP 18; TEMP 36.7; O2SAT 96
== END 2024-06-09 12:30 | disposition home or self-care (01) | DRG 638 ==
LOC: ER 19:39 → ICU 19:55 → MEDSURG 06-08 13:45
PROVIDERS: Admitting Provider Student in an Organized Health Care Education/Training Program; Emergency Provider Emergency Medicine; Visit Provider Student in an Organized Health Care Education/Training Program
DX: E10.10 Type 1 diabetes mellitus with ketoacidosis without coma (principal); Z59.01 Sheltered homelessness; T38.3X6A Underdosing of insulin and oral hypoglycemic [antidiabetic] drugs, initial encounter; E78.2 Mixed hyperlipidemia; Z91.141 Patient's other noncompliance with medication regimen due to financial hardship; Y92.9 Unspecified place or not applicable; Z59.71 Insufficient health insurance coverage
CPT/HCPCS: 36415; 36416; 36600; 71045; 80048; 80051; 80053; 80061; 80306; 81003; 82009; 82330; 82607; 82746; 82805; 82962; 83036; 83540; 83550; 83605; 83735; 84100; 84145; 84443; 84484; 85025; 93005; 94664; 96365; 96367; 96372; 96375; 99285; J1644; J1815; J2470; J3475; J7030; J7042

== ENCOUNTER → 2024-06-16 10:26 | Outpatient (BNVA) | payer OTHER, MEDICAID, SELFPAY | DX: E11.40 Type 2 diabetes mellitus with diabetic neuropathy, unspecified (principal) | CPT/HCPCS: 80053 ==

== ENCOUNTER 2024-07-04 10:43 | Observation (INO) | payer OTHER, MEDICAID, SELFPAY ==
[2024-07-04] VITALS (10 sets, daily range): BP systolic 110–134; BP diastolic 64–91; PULSE 78–110; RESP 16–30; TEMP 36.7–36.8; O2SAT 94–99; BMI 22.4; BMI 21.9
--- NOTE | 2024-07-04 10:46 | ECG_ITS ---
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 Measurements Intervals [place] Rate: 109 P: 70 [place]: 120 QRS: 88 QRSD: 88 T: -16 QT: 339 QTc: 458 Interpretive Statements SINUS TACHYCARDIA NONSPECIFIC T-WAVE ABNORMALITY Compared to ECG 06/08/2024 02:50:11 Heart rate is increased Electronically Signed On 07-04-2024 12:18:11 CDT by Albert Busch M.D. [id number] f
--- NOTE | 2024-07-04 10:56 | XRR_ITS ---
PROCEDURE INFORMATION: Exam: XR Chest Exam date and time: 07/04/2024 11:07 AM Age: 34 years old Clinical indication: Pain; Angina pectoris; Additional info: Cp TECHNIQUE: Imaging protocol: Radiologic exam of the chest. Views: 1 view. COMPARISON: CR (CHEST, ) 06/07/2024 7:26 PM FINDINGS: Lungs: Unremarkable. No consolidation. Pleural spaces: Unremarkable. No pleural effusion. No pneumothorax. Heart/Mediastinum: Unremarkable. No cardiomegaly. Bones/joints: Unremarkable. XR/XR chest 1V portable [id number] IMPRESSION: No acute findings.
[2024-07-04 11:47] LABS: Basophils # 0.1 10^3/uL (0.0-0.1); Basophils % 0.9 %; Eosinophils # 0.2 10^3/uL (0.0-0.8); Hematocrit 45.5 % (37-53); Lymphocytes # 3.1 10^3/uL (0.8-4.8); Lymphocytes % 42.5 %; Mean Corpuscular HGB Conc 33.2 g/dL (30-55); Mean Corpuscular Hemoglobin 28.8 pg (27-33); Mean Corpuscular Volume 86.8 fl (82-101); Mean Platelet Volume 8.6 fL (7.4-10.4); Monocytes # 0.9 10^3/uL (0.2-0.9); Monocytes % 12.2 %; Neutrophils # 3.04 10^3/uL (1.8-7.7); Neutrophils % 41.1 %; Nucleated Red Blood Cells % 0 %; Platelet Count 364 10^3/cmm (157-399); Red Blood Count 5.24 10^6/uL (3.85-5.65); Red Cell Distribution Width 11.8 % (12.1-15.1); White Blood Count 7.39 10^3/uL (3.29-11.43)
[2024-07-04 12:08] LABS: Alanine Aminotransferase 27 U/L (0-41); Albumin Level 4.7 g/dL (3.5-5.2); Alkaline Phosphatase 113 U/L (40-130); Anion Gap 15.9 (5-19); Aspartate Amino Transferase 21 U/L (0-40); Blood Urea Nitrogen 12 mg/dL (6-20); Carbon Dioxide 26 mmol/L (22-29); Chloride 101 mmol/L (98-107); Creatinine Clr Calc Pharmacy 149.2215; Globulin 2.3 g/dL (1.3-4.6); Glomerular Filtration Rate 153.3 mL/min (90-130); Glucose 77 mg/dL (65-115); Lipase 30 U/L (13-60); Osmolality Calculated 287 mOsm/kg (285-295); Potassium 3.9 mmol/L (3.5-5.1); Sodium 139 mmol/L (136-145); Total Bilirubin 0.3 mg/dL (0.15-1.2)
[2024-07-04 12:09] LABS: Troponin(5th) Baseline < 6 ng/L (0-15)
--- NOTE | 2024-07-04 12:37 | ECG_ITS ---
[employer] Test Date: 2024-07-04 Pat Name: John Lopez Department: Room: Gender: Male Sales Coach: : 1990 Requested By: Andrea Maier Order Number: [id number] Justice MD: Albert Busch M.D. Measurements Intervals [place] Rate: 89 P: 139 [place]: 129 QRS: 81 QRSD: 93 T: 208 QT: 362 QTc: 442 Interpretive Statements Sinus Rhythm Non specific T wave changes Compared to ECG 07/04/2024 10:46:45 Sinus tachycardia no longer present T-wave abnormality still present Electronically Signed On 07-05-2024 18:10:11 CDT by Albert Busch M.D. [email or web address]
--- NOTE | 2024-07-04 12:50 | ED_ITS ---
HPI - Chest Pain 2 General: Chief Complaint: Chest Pain Stated Complaint: chest pain Time Seen by Provider: 07/04/24 12:24 Source: patient Mode of arrival: ambulatory Limitations: no limitations History of Present Illness: 34-year-old male states he been having s ome left-sided chest pain over the last week. He states that pain has been a pressure pain he states it seems to come and go it is minimal at this time he denies any shortness of breath denies any fever denies any cough. He has a history of type 1 diabetes he is a smoker. He states he has a family history of heart disease Associated symptoms: Deny abdominal pain, dyspnea, fever(s), nausea or vomiting Related Data Home Medications Medication Instructions Recorded Confirmed insulin lispro 100 unit/mL 20 unit SUBCUT TID 07/04/24 07/04/24 subcutaneous pen Previous Rx's Medication Instructions Recorded insulin glargine 100 unit/mL (3 20 unit (0.2 mL) SUBCUT BID #15 mL 06/09/24 mL) subcutaneous pen (Basaglar KwikPen U-100 Insulin) blood sugar diagnostic (Easy Touch #50 ea 06/16/24 BluLink Test Strip) gabapentin 100 mg capsule 100 mg PO TID #90 caps 06/19/24 pen needle, diabetic 32 gauge x #200 ea 07/04/24 Allergies Allergy/AdvReac Type Severity Reaction Status Date / Time No Known Allergies Allergy Verified 06/19/24 07:19 Review of Systems 2 Const: Denies: fever(s), chills, body aches or change in appetite ENMT: Denies: throat pain or dental pain Card: Reports: chest pain Resp: Denies: dyspnea GI: Denies: abdominal pain, nausea, vomiting or diarrhea Musc: Denies: neck pain or back pain Skin/Breast: Denies: rash Neuro: Denies: headache(s) PFSH ED 2 PFSH: Medical History Diabetic neuropathy Diabetes type 1, uncontrolled Asthma Diabetes Family History Other Hypertension Social History Smoking and tobacco/nicotine status: never used tobacco/nicotine Physical Exam 2 Const: COMMON NORMALS: alert GENERAL APPEARANCE: cooperative HENMT: COMMON NORMALS: normocephalic and external ears normal HEAD & SCALP: normocephalic EXTERNAL EAR: Yes external ears normal Eye: COMMON NORMALS: EOMs intact bilaterally and conjunctivae normal C ONJUNCTIVA: Yes conjunctivae normal Chest: COMMONS NORMALS: normal inspection of the chest Resp: COMMON NORMALS: normal respiratory effort and clear to auscultation bilaterally AUSCULTATION: clear to auscultation bilaterally Cardio: COMMON NORMALS: regular rate and regular rhythm RATE: regular rate RHYTHM: regular rhythm GI: COMMON NORMALS: Normal to inspection, nondistended, normoactive bowel sounds present and non-tender Extremity: COMMON NORMALS: normal to inspection Neuro: SENSORIUM/ORIENTATION: Yes alert Psych: COMMON NORMALS: mental status grossly normal and cooperative Course 2 Vital Signs: Vital signs: Vital Signs Temperature 98.0 F 07/04/24 10:50 Pulse Rate 96 07/04/24 13:00 Respiratory Rate 16 07/04/24 13:00 Blood Pressure 111/81 07/04/24 13:00 Pulse Oximetry 97 07/04/24 13:00 Oxygen Delivery Me thod Room Air 07/04/24 13:00 MDM - Chest Pain Medical Decision Making Patient presents here with chest pain he does have new T wave inversions on his EKG initial troponins negative spoke to the hospitalist will admit for ACS rule out D-dimer is negative Medical Records I reviewed the patient's medical records. Lab Data I reviewed the patient's lab results. 07/04/24 11:38 07/04/24 11:38 Radiology Impressions Chest X-Ray 07/04/24 10:56 IMPRESSION: No acute findings. Laboratory Results WBC 7.39 10^3/uL (3.29-11.43) 07/04/24 11:38 RBC 5.24 10^6/uL (3.85-5.65) 07/04/24 11:38 Hgb 15.10 g/dL (11.27-16.99) 07/04/24 11:38 Hct 45.5 % (37-53) 07/04/24 11:38 MCV 86.8 fl (82-101) 07/04/24 11:38 MCH 28.8 pg (27-33) 07/04/24 11:38 MCHC 33.2 g/dL (30-55) 07/04/24 11:38 RDW 11.8 % (12.1-15.1) L 07/04/24 11:38 Plt Count 364 10^3/cmm (157-399) 07/04/24 11:38 MPV 8.6 fL (7.4-10.4) 07/04/24 11:38 Neut % (Auto) 41.1 % 07/04/24 11:38 Lymph % (Auto) 42.5 % 07/04/24 11:38 [place] % (Auto) 12.2 % 07/04/24 11:38 Eos % (Auto) 3.0 % 07/04/24 11:38 Baso % (Auto) 0.9 % 07/04/24 11:38 Neut # (Auto) 3.04 10^3/uL (1.8-7.7) 07/04/24 11:38 Lymph # (Auto) 3.1 10^3/uL (0.8-4.8) 07/04/24 11:38 [place] # (Auto) 0.9 10^3/uL (0.2-0.9) 07/04/24 11:38 Eos # (Auto) 0.2 10^3/uL (0.0-0.8) 07/04/24 11:38 Baso # (Auto) 0.1 10^3/uL (0.0-0.1) 07/04/24 11:38 Nucleated RBC % (auto) 0 % 07/04/24 11:38 Nucleated RBCs # 0.0 /100WBC 07/04/24 11:38 D-Dimer <= 0.27 ug/mLFEU (0-0.59) 07/04/24 11:38 Sodium 139 mmol/L (136-145) 07/04/24 11:38 Potassium 3.9 mmol/L (3.5-5.1) 07/04/24 11:38 Chloride 101 mmol/L (98-107) 07/04/24 11:38 Carbon Dioxide 26 mmol/L (22-29) 07/04/24 11:38 Anion Gap 15.9 (5-19) 07/04/24 11:38 BUN 12 mg/dL (6-20) 07/04/24 11:38 Creatinine 0.6 mg/dL (0.7-1.2) L 07/04/24 11:38 GFR Calculation 153.3 mL/min (90-130) H 07/04/24 11:38 Glucose 77 mg/dL (65-115) 07/04/24 11:38 Calculated Osmolality 287 mOsm/kg (285-295) 07/04/24 11:38 Calcium 10.0 mg/dL (8.5-10.5) 07/04/24 11:38 Total Bilirubin 0.3 mg/dL (0.15-1.2) 07/04/24 11:38 AST 21 U/L (0-40) 07/04/24 11:38 ALT 27 U/L (0-41) 07/04/24 11:38 Alkaline Phosphatase 113 U/L (40-130) 07/04/24 11:38 Troponin T Baseline < 6 ng/L (0-15) 07/04/24 11:38 Total Protein 7.0 g/dL (6.6-8.7) 07/04/24 11:38 Albumin 4.7 g/dL (3.5-5.2) 07/04/24 11:38 Globulin 2.3 g/dL (1.3-4.6) 07/04/24 11:38 Lipase 30 U/L (13-60) 07/04/24 11:38 All radiology interpretation(s) finalized by discharge EKG Data EKG 1: I personally reviewed and interpreted this EKG as follows: EKG interpretation date: 07/04/24 EKG interpretation time: 12:37 Interpretation: nsr hr [address] or t wave abnormalitis qrs 93 qtc 409 Discharge Plan Discharge Patient Disposition: Admitted As Inpatient Clinical Impression: Chest pain Condition: Stable Prescriptions: No Action gabapentin 100 mg capsule 100 mg PO TID Qty: 90 3RF (DME) Easy Touch BluLink Test Strip Strip See Rx Instructions .Route Qty: 50 0RF Rx Instructions: As directed (DME) pen needle, diabetic 32 gauge x 5/32 needle See Rx Instructions .Route Qty: 200 1RF Rx Instructions: As directed insulin glargine [Basaglar KwikPen U-100 Insulin] 100 unit/mL (3 mL) insulin pen 20 unit SUBCUT BID Qty: 15 3RF insulin lispro 100 unit/mL insulin pen 20 unit SUBCUT TID Coding Level of Care Code ED Home Care Music Therapist for Ger Bridges
[2024-07-04] MEDS: aspirin 81 mg Chew Tablet 324 MG PO (12:57)
--- NOTE | 2024-07-04 13:00 | PC.NURSE ---
no cardiac leads at this time, requesting leads be brought to er.
[2024-07-04 13:14] LABS: D Dimer <= 0.27 ug/mLFEU (0-0.59)
--- NOTE | 2024-07-04 13:47 | USCV_ITS ---
John Lopez Age: 34 Gender: M : 1990 Exam Date: 07/04/2024 14:12 Ordering Phys: Davdie May MD Technologist: Exam Location: [facility] [place] Indication: cp BP: 113 / 64 HR: 558 Rhythm: Sinus Technical Quality: Adequate MEASUREMENTS (Male / Female) Normal Values 2D ECHO LV Diastolic Diameter PLAX 4.2 cm 4.2 - 5.9 / 3.9 - 5.3 cm IVS Diastolic Thickness 1.0 cm 0.6 - 1.0 / 0.6 - 0.9 cm IVS Systolic Thickness 1.7 cm LVPW Diastolic Thickness 1.0 cm 0.6 - 1.0 / 0.6 - 0.9 cm LVPW Systolic Thickness 1.6 cm LVOT Diameter 1.8 cm LV Ejection Fraction 2D Teich 63.1 % LV Ejection Fraction MOD 4C 69.1 % LA Diameter 3.2 cm RA Systolic Volume 4C AL 29.2 ml RA Systolic Volume 4C MOD 28.2 ml LA Sys Volume AL 38.0 cm cubed LA Sys Volume Index AL 22.6 cm cubed/m squared Aorta at Sinotubular Diameter 1.8 cm M-MODE LA Ao Ratio MM 0.9 AV Cusp Separation MM 2.1 cm DOPPLER AV Peak Velocity 104.0 cm/s LVOT Peak Velocity 38.0 cm/s AV Area Cont Eq vti 1.1 cm squared AV Area Cont Eq pk 1.0 cm squared MV Area PHT 4.6 cm squared Mitral E to A Ratio 1.0 TV Peak Velocity 185.5 cm/s TR Peak Velocity 204.0 cm/s TR Peak Gradient 16.6 mmHg Right Atrial Pressure 3.0 mmHg Pulmonary Artery Systolic Pressu 19.6 mmHg PV Peak Velocity 82.0 cm/s FINDINGS Left Ventricle Normal left ventricular size, systolic function and wall thickness, with no regional wall motion abnormalities. Estimated LVEF normal 65%. Right Ventricle Normal right ventricular size and systolic function. Right Atrium Mildly increased right atrial size. Left Atrium Normal left atrial size. Mitral Valve Structurally normal mitral valve. No mitral valve regurgitation. Aortic Valve Structurally normal trileaflet aortic valve. No aortic valve stenosis. No aortic valve regurgitation. Tricuspid Valve Structurally normal tricuspid valve. Trace tricuspid valve regurgitation. Normal RV and pulmonary pressures (21 mmHg). Pulmonic Valve Structurally normal pulmonic valve. Trace pulmonary valve regurgitation. Pericardium No pericardial effusion. Aorta Normal size aortic root and proximal ascending aorta. IVC Normal inferior vena cava. CONCLUSIONS Normal left ventricular systolic function. Normal LVEF 65%. Normal chamber sizes. No significant valvular abnormality noted. Normal right heart and pulmonary pressures. Albert Busch MD (Electronically Signed) Final Date: 04 July 2024 15:54 S
--- NOTE | 2024-07-04 13:48 | P.HP_ITS ---
Providers/Chief Complaint 2 Chief Complaint: chest pain History of Present Illness John Lopez is a 34 year old male with a past medical history of type 1 diabetes mellitus, diabetic neuropathy, hyperlipidemia, who presents [facility] for chest pain. Patient tells that today he developed severe substernal chest pain, pressure-like pain, radiating to the left neck down the left arm, he is never had chest pain before, the chest pain currently is 7 out of 10 he tells me that it is it is increasing, he denies any IV drug use,, does report smoking, does report a family history of CAD in his father, has had multiple stents, his initial EKG showed ST depressions in leads I, 2, aVF, Review of Systems 2 Const: Denies: fever(s) Card: Reports: chest pain Resp: Denies: dyspnea GI: Denies: abdominal pain Neuro: Denies: headache(s) Medications/Allergies Home Medications Medication Instructions Recorded Confirmed Last Taken Type insulin glargine 100 unit/mL (3 20 unit (0.2 mL) SUBCUT BID #15 mL 06/09/24 07/04/24 07/04/24 Rx mL) subcutaneous pen (Basaglar KwikPen U-100 Insulin) blood sugar diagnostic (Easy Touch #50 ea 06/16/24 07/04/24 Unknown Rx BluLink Test Strip) gabapentin 100 mg capsule 100 mg PO TID #90 caps 06/19/24 07/04/24 07/04/24 Rx insulin lispro 100 unit/mL 20 unit SUBCUT TID 07/04/24 07/04/24 07/04/24 History subcutaneous pen pen needle, diabetic 32 gauge x #200 ea 07/04/24 07/04/24 Unknown Rx Allergies Allergy/AdvReac Type Severity Reaction Status Date / Time No Known Allergies Allergy Verified 06/19/24 07:19 PFSH Acute 2 PFSH: Medical History Diabetic neuropathy Diabetes type 1, uncontrolled Asthma Diabetes Surgical History No pertinent past surgical history Family History Father CAD (coronary artery disease) Other Hypertension Social History Smoking and tobacco/nicotine status: never used tobacco/nicotine Alcohol intake: never Substance/Drug Use: current Substance/Drug use type: Marijuana Vitals/I&O/Wt Last Vital Signs Temp 98.0 F 07/04/24 10:50 Pulse 96 07/04/24 13:00 Resp 16 07/04/24 13:00 BP 111/81 07/04/24 13:00 Pulse Ox 97 07/04/24 13:00 O2 Del Method Room Air 07/04/24 13:00 Weight last 48 hrs Weight 61.235 kg Physical Exam 2 Const: COMMON NORMALS: no acute distress and patient oriented x3 HENMT: COMMON NORMALS: normocephalic HEAD & SCALP: normocephalic Eye: COMMON NORMALS: Equal, round and reactive pupils present Neck/C-Spine: COMMON NORMALS: no JVD Resp: COMMON NORMALS: normal respiratory effort, No retractions, No use of accessory muscles and clear to auscultation bilaterally AUSCULTATION: clear to auscultation bilaterally Cardio: COMMON NORMALS: no JVD, regular rate, regular rhythm, S1 normal heart sound present and S2 normal heart sound present RATE: regular rate RHYTHM: regular rhythm HEART SOUNDS: S1 normal heart sound present and S2 normal heart sound present GI: COMMON NORMALS: Normal to inspection, nondistended, normoactive bowel sounds present, Soft to palpation and non-tender Extremity: COMMON NORMALS: no calf tenderness and no pedal edema Neuro: COMMON NORMALS: patient oriented x3, CN's II-XII intact bilaterally and moves all extremities Psych: COMMON NORMALS: mental status grossly normal Data 07/04/24 11:38 07/04/24 11:38 CXR: My impression: No acute infiltrates, no pulmonary vascular congestion EKG 1: My Interpretation: T wave inversions lead I, lead II, aVL A&P Assessment and plan (1) No pertinent past surgical history: (2) Chest pain: Plan Chest pain ? Sounds cardiac in nature ? Family history of CAD ? Initial troponin 6, EKG showing T wave inversions lead I, 2, aVF ? Currently chest pain 6 out of 10 ? A1c 18.5 ? Plan ? Admit to CSU ? We will start him on a nitro drip for chest pain ? Start heparin drip ? Cardiac echo ? Serial EKGs, serial troponins, telemetry monitoring ? Monitor for chest pain ? Aspirin, statin, Coreg ? N.p.o. midnight, for cardiac stress test tomorrow morning ? Type 2 diabetes mellitus, Lantus 20 once twice daily, moderate dose sliding scale ? Full code ? Heparin drip for DVT prophylaxis Spoke to ER provider, spoke to patient, Attestations 2 Medical Necessity Statement*: Patient requires hospitalization, outpatient with observation, for chest pain Diagnoses No pertinent past surgical history Z78.9 Chest pain R07.9
[2024-07-04 13:52] LABS: Troponin 5 2HR Delta 0.00001 ABS# (0-10)
[2024-07-04 14:40] LABS: NT Pro B Type Natriuretic Pept < 36 pg/mL (0-125)
[2024-07-04 14:41] LABS: Alcohol Level < 10 mg/dL (0-10)
[2024-07-04 15:47] LABS: Glucose Point of Care 207 mg/dL (70-110)
--- NOTE | 2024-07-04 16:19 | PC.NURSE ---
Report called to Briana GARCIA at 1615.
[2024-07-04 16:32] LABS: Amphetamines Screen Urine Negative (Negative); Barbiturates Screen Urine Negative (Negative); Benzodiazepines Screen Urine Negative (Negative); Cocaine Screen Urine Negative (Negative); Opiate Screen Urine Negative (Negative); PCP Screen Urine Negative (Negative); THC Screen Urine Positive (Negative)
--- NOTE | 2024-07-04 16:32 | ECG_ITS ---
[facility] Test Date: 2024-07-05 Pat Name: John Lopez Department: Room: 111 Gender: Male Magna[employer] Operator: : 1990 Requested By: Davide May Order Number: [id number] Justice MD: ROHAN SANCHEZ Interpretive Statements Lung unchanged pre/post procedure; Intraprocedure shortess of breath; Symptoms resoled by discharge [id number]
--- NOTE | 2024-07-04 16:47 | PC.NURSE ---
Patient's lantus placed in the med room in the refrigerator.
[2024-07-04 16:53] LABS: Glucose Point of Care 225 mg/dL (70-110)
--- NOTE | 2024-07-04 16:56 | ECG_ITS ---
[employer] Test Date: 2024-07-04 Pat Name: John Lopez Department: Room: 111 Gender: Male Director Public Service: : 1990 Requested By: Andrea Maier Order Number: [id number] Justice MD: Albert Busch M.D. Measurements Intervals [place] Rate: 80 P: 59 SC: 153 QRS: 65 QRSD: 93 T: 58 QT: 398 QTc: 461 Interpretive Statements SINUS RHYTHM Compared to ECG 07/04/2024 12:37:50 Ectopic atrial rhythm no longer present T-wave abnormality no longer present Possible ischemia no longer present Electronically Signed On 07-05-2024 17:18:08 CDT by Albert Busch M.D. [id number]
[2024-07-04] MEDS: heparin drip 25,000 UNIT/500 ML PREMIX 20.82 UNIT IV (17:18)
[2024-07-04] MEDS: pantoprazole 40 mg SDV IVP (17:21)
[2024-07-04] MEDS: gabapentin 100 mg Capsule PO ×2 (17:21→21:31)
[2024-07-04] MEDS: carvedilol 3.125 mg Tablet PO (17:21)
[2024-07-04] MEDS: heparin 5,000 unit/mL INJ 1 mL IVP (17:21)
[2024-07-04] MEDS: insulin glargine 100 units/1 mL 20 UNIT SUBCUT (17:22)
[2024-07-04] MEDS: insulin lispro 100 unit/1 mL SUBCUT (17:25)
[2024-07-04 17:45] LABS: Chol HDL Ratio 7.74 mg/dL (1.0-5.00); Cholesterol 294 mg/dL (0-200); HDL Cholesterol 38 mg/dL (60-100); LDL Cholesterol Calculated 213 mg/dL (50-129); LDL HDL Ratio 5.61 RATIO (0.00-3.22); Thyroid Stimulating Hormone 0.59 uIU/mL (0.27-4.20); Triglycerides 215 mg/dL (0-150)
[2024-07-04 18:11] LABS: Troponin 5 6HR Delta 0.00001 ng/L (0-12)
[2024-07-04] MEDS: atorvastatin 40 mg Tablet PO (21:31)
--- NOTE | 2024-07-04 21:35 | PC.NURSE ---
pt bs at 2135 was 344, pt refused any insulin.
[2024-07-04 22:01] LABS: Glucose Point of Care 344 mg/dL (70-110)
[2024-07-05] VITALS (7 sets, daily range): BP systolic 105–168; BP diastolic 70–99; PULSE 75–98; RESP 17–23; TEMP 36.8–37; O2SAT 96–99
[2024-07-05 00:12] LABS: Partial Thromboplastin Time 34.5 SECONDS (23.9-36.7)
[2024-07-05] MEDS: heparin 5,000 unit/mL INJ 1 mL IVP (00:31)
[2024-07-05 06:39] LABS: Glucose Point of Care 145 mg/dL (70-110)
[2024-07-05 07:20] LABS: Basophils # 0.1 10^3/uL (0.0-0.1); Eosinophils # 0.2 10^3/uL (0.0-0.8); Eosinophils % 2.6 %; Hematocrit 41.1 % (37-53); Lymphocytes # 3.8 10^3/uL (0.8-4.8); Lymphocytes % 52.7 %; Mean Corpuscular HGB Conc 33.3 g/dL (30-55); Mean Corpuscular Hemoglobin 28.7 pg (27-33); Mean Corpuscular Volume 86.2 fl (82-101); Monocytes # 0.8 10^3/uL (0.2-0.9); Monocytes % 10.4 %; Neutrophils # 2.37 10^3/uL (1.8-7.7); Nucleated Red Blood Cells % 0 %; Platelet Count 317 10^3/cmm (157-399); Red Blood Count 4.77 10^6/uL (3.85-5.65); Red Cell Distribution Width 11.9 % (12.1-15.1); White Blood Count 7.19 10^3/uL (3.29-11.43)
[2024-07-05 07:27] LABS: Partial Thromboplastin Time 63.4 SECONDS (23.9-36.7)
[2024-07-05 07:30] LABS: Anion Gap 13.1 (5-19); Blood Urea Nitrogen 21 mg/dL (6-20); Calcium 8.8 mg/dL (8.5-10.5); Carbon Dioxide 26 mmol/L (22-29); Chloride 103 mmol/L (98-107); Glomerular Filtration Rate 189.2 mL/min (90-130); Glucose 142 mg/dL (65-115); Osmolality Calculated 291 mOsm/kg (285-295); Potassium 4.1 mmol/L (3.5-5.1); Sodium 138 mmol/L (136-145)
[2024-07-05] MEDS: regadenoson 0.4 Mg/5 ml Syringe IVP (07:34)
[2024-07-05] MEDS: carvedilol 3.125 mg Tablet PO (09:00)
[2024-07-05] MEDS: aspirin 81 mg EC Tablet PO (09:00)
[2024-07-05] MEDS: gabapentin 100 mg Capsule PO (09:00)
[2024-07-05] MEDS: insulin glargine 100 units/1 mL 20 UNIT SUBCUT (09:01)
[2024-07-05] MEDS: insulin lispro 100 unit/1 mL SUBCUT ×2 (09:04→12:25)
--- NOTE | 2024-07-05 09:58 | PC.CHAP ---
Pastoral Care Encounter/Spiritual Assessment Type of Contact [] Declined body mechanic apprentice visit [] Patient/Family/Request visit [] Outpatient visit [] Follow-up visit [] Physician referral [] Code/Alert [x] Routine visit [] Staff referral [] Actively dying [] Patient sleeping [] Family support [] [] Out of room [] Palliative care [] [] Receiving care in room [] Pre-surgical visit [] Trauma [] Long length of stay [] ICU visit [] Other: Relational/Emotional Strength [x] Patient feels connected with others/family/visitors/staff [] Distress [] Loneliness/isolation [] Abandonment Spirituality of Patient [x] Person of Mary Alice [] Attends Methodist of their Mary Alice [x] Believes in Prayer [] Reads Bible or Bahai materials [] There are Spiritual issues to be addressed Hopper Filler Interventions [x] Prayer [x] Active listening [] Non-anxious presence [x] Spiritual/emotional support [] Crisis/trauma care [] Spiritual counseling [] Bereavement support [] Provided bereavement packet [] Provided Bible/devotional materials [] Provided toy/stuffed animal, coloring book to patient or family member [] Provided Communion [] Anointing/Skandia [] Salvation [x] Completed spiritual assessment [] Other: Impact on Illness or Injury [] Angry [] Fearful [] Anxious [] Often cries [] Exhaustion [] Unable to work [] Unable to attend scientology [] Unable to walk/stand [] Unable to read [] Unable to drive [] Unable to eat/drink [] Unable to sleep [] Unable to be with family [] Patient intubated [] Other: Summary Time spent with patient 5 min Pastoral Care Encounter/Spiritual Assessment Type of Contact [] Declined body mechanic apprentice visit [] Patient/Family/Request visit [] Outpatient visit [] Follow-up visit [] Physician referral [] Code/Alert [] Routine visit [] Staff referral [] Actively dying [] Patient sleeping [] Family support [] [] Out of room [] Palliative care [] [] Receiving care in room [] Pre-surgical visit [] Trauma [] Long length of stay [] ICU visit [] Other: Relational/Emotional Strength [] Patient feels connected with others/family/visitors/staff [] Distress [] Loneliness/isolation [] Abandonment Spirituality of Patient [] Person of Mary Alice [] Attends Methodist of their Mary Alice [] Believes in Prayer [] Reads Bible or Bahai materials [] There are Spiritual issues to be addressed Hopper Filler Interventions [] Prayer [] Active listening [] Non-anxious presence [] Spiritual/emotional support [] Crisis/trauma care [] Spiritual counseling [] Bereavement support [] Provided bereavement packet [] Provided Bible/devotional materials [] Provided toy/stuffed animal, coloring book to patient or family member [] Provided Communion [] Anointing/Skandia [] Salvation [] Completed spiritual assessment [] Other: Impact on Illness or Injury [] Angry [] Fearful [] Anxious [] Often cries [] Exhaustion [] Unable to work [] Unable to attend scientology [] Unable to walk/stand [] Unable to read [] Unable to drive [] Unable to eat/drink [] Unable to sleep [] Unable to be with family [] Patient intubated [] Other: Summary Time spent with patient
[2024-07-05 11:26] LABS: Glucose Point of Care 243 mg/dL (70-110)
--- NOTE | 2024-07-05 11:33 | P.DS_ITS ---
Discharge Providers Date of Admission: 07/04/24 15:51 Date of Discharge: July 05, 2024 Attending Provider at Admission: Davide May MD Attending Provider at Discharge: Davide May MD Primary Care Provider: vEa Ramírez NP Diagnoses at Discharge Discharge Diagnosis (1) No pertinent past surgical history: Status: Acute (2) Chest pain: Status: Acute Reason for Visit Reason for Visit: chest pain Hospital Course Hospital Course John Lopez is a 34 year old male with a past medical history of type 1 diabetes mellitus, diabetic neuropathy, hyperlipidemia, who presents [facility] for chest pain. Patient tells that today he developed severe substernal chest pain, pressure-like pain, radiating to the left neck down the left arm, he is never had chest pain before, the chest pain currently is 7 out of 10 he tells me that it is it is increasing, he denies any IV drug use,, does report smoking, does report a family history of CAD in his father, has had multiple stents, his initial EKG showed ST depressions in leads I, 2, aVF, Patient was admitted to [facility] for chest pain cardiac echo CONCLUSIONS Normal left ventricular systolic function. Normal LVEF 65%. Normal chamber sizes. No significant valvular abnormality noted. Normal right heart and pulmonary pressures. stress test IMPRESSIONS This study is negative for ischemia, given elevated TID ratio differential diagnosis could be left ventricle hypertrophy/subendocardial ischemia however cannot rule out multivessel coronary artery disease, clinical correlation advised. -Most recent EKG, cantering 924 at 5 PM shows EKG changes as above have resolved, normal sinus rhythm, no acute ST-T wave changes # Patient denies any recurrent chest pain during the night ? Initially managed on aspirin, statin, heparin drip, beta-manish ? Discussed with patient that his stress test as above is a low probability stress test, nonetheless, given his risk factors and his family history, I am going to discharge him with aspirin, statin, Coreg with a close follow-up with cardiology as outpatient # Nitroglycerin as needed for chest pain ? Patient was advised if he were to have any recurrent chest pain to go to emergency room Physical Exam Const: COMMON NORMALS: no acute distress and patient oriented x3 Resp: COMMON NORMALS: normal respiratory effort, No retractions, No use of accessory muscles and clear to auscultation bilaterally AUSCULTATION: clear to auscultation bilaterally Cardio: COMMON NORMALS: regular rate, regular rhythm, S1 normal heart sound present and S2 normal heart sound present RATE: regular rate RHYTHM: regular rhythm HEART SOUNDS: S1 normal heart sound present and S2 normal heart sound present GI: COMMON NORMALS: Normal to inspection, nondistended, normoactive bowel sounds present and non-tender Extremity: COMMON NORMALS: no pedal edema Neuro: COMMON NORMALS: patient oriented x3 Psych: COMMON NORMALS: mental status grossly normal Discharge Data Studies Completed and Pending Completed Studies During Hospitalization Category Date Time Status Sestamibi Stress Test Request Routine Exams 07/04/24 16:32 Draft XR chest 1V portable [id number] Stat Exams 07/04/24 10:56 Completed NM nabor perf SPECT r/s* [id number] Routine Nuc Med 07/05/24 16:32 Completed CV. echo complete* [id number] Stat Ultrasound 07/04/24 13:47 Completed Pending at discharge Category Date Time Status Basic Metabolic Panel AM LABS Lab 07/06/24 04:00 Ordered Basic Metabolic Panel AM LABS Lab 07/07/24 04:00 Ordered Complete Blood Count w/Auto AM LABS Lab 07/06/24 04:00 Ordered Complete Blood Count w/Auto AM LABS Lab 07/07/24 04:00 Ordered PTT [Partial Thromboplastin Time] Timed Lab 07/05/24 13:00 Ordered Platelet Count Q2D Lab 07/06/24 04:00 Ordered Platelet Count Q2D Lab 07/08/24 04:00 Ordered Radiology Impressions Chest X-Ray 07/04/24 10:56 IMPRESSION: No acute findings. Laboratory Results WBC 7.19 10^3/uL (3.29-11.43) 07/05/24 06:53 RBC 4.77 10^6/uL (3.85-5.65) 07/05/24 06:53 Hgb 13.70 g/dL (11.27-16.99) 07/05/24 06:53 Hct 41.1 % (37-53) 07/05/24 06:53 MCV 86.2 fl (82-101) 07/05/24 06:53 MCH 28.7 pg (27-33) 07/05/24 06:53 MCHC 33.3 g/dL (30-55) 07/05/24 06:53 RDW 11.9 % (12.1-15.1) L 07/05/24 06:53 Plt Count 317 10^3/cmm (157-399) 07/05/24 06:53 MPV 9.0 fL (7.4-10.4) 07/05/24 06:53 Neut % (Auto) 33.0 % 07/05/24 06:53 Lymph % (Auto) 52.7 % 07/05/24 06:53 [place] % (Auto) 10.4 % 07/05/24 06:53 Eos % (Auto) 2.6 % 07/05/24 06:53 Baso % (Auto) 1.0 % 07/05/24 06:53 Neut # (Auto) 2.37 10^3/uL (1.8-7.7) 07/05/24 06:53 Lymph # (Auto) 3.8 10^3/uL (0.8-4.8) 07/05/24 06:53 [place] # (Auto) 0.8 10^3/uL (0.2-0.9) 07/05/24 06:53 Eos # (Auto) 0.2 10^3/uL (0.0-0.8) 07/05/24 06:53 Baso # (Auto) 0.1 10^3/uL (0.0-0.1) 07/05/24 06:53 Nucleated RBC % (auto) 0 % 07/05/24 06:53 Nucleated RBCs # 0.0 /100WBC 07/05/24 06:53 APTT 63.4 SECONDS (23.9-36.7) H D 07/05/24 06:53 D-Dimer <= 0.27 ug/mLFEU (0-0.59) 07/04/24 11:38 Sodium 138 mmol/L (136-145) 07/05/24 06:53 Potassium 4.1 mmol/L (3.5-5.1) 07/05/24 06:53 Chloride 103 mmol/L (98-107) 07/05/24 06:53 Carbon Dioxide 26 mmol/L (22-29) 07/05/24 06:53 Anion Gap 13.1 (5-19) 07/05/24 06:53 BUN 21 mg/dL (6-20) H 07/05/24 06:53 Creatinine 0.5 mg/dL (0.7-1.2) L 07/05/24 06:53 GFR Calculation 189.2 mL/min (90-130) H 07/05/24 06:53 Glucose 142 mg/dL (65-115) H 07/05/24 06:53 POC Glucose 243 mg/dL (70-110) H 07/05/24 11:23 Calculated Osmolality 291 mOsm/kg (285-295) 07/05/24 06:53 Calcium 8.8 mg/dL (8.5-10.5) 07/05/24 06:53 Total Bilirubin 0.3 mg/dL (0.15-1.2) 07/04/24 11:38 AST 21 U/L (0-40) 07/04/24 11:38 ALT 27 U/L (0-41) 07/04/24 11:38 Alkaline Phosphatase 113 U/L (40-130) 07/04/24 11:38 Troponin T Baseline < 6 ng/L (0-15) 07/04/24 11:38 Troponin T 120 Minute 6.00 ng/L (0-15) 07/04/24 12:59 Delta Troponin T 0.71877 ABS# (0-10) 07/04/24 12:59 Troponin T Hi Sens 6Hr 6.00 ng/L (0-15) 07/04/24 17:18 Troponin T Hi Sens 6Hr Delta 0.47713 ng/L (0-12) 07/04/24 17:18 NT-Pro-B Natriuret Pep < 36 pg/mL (0-125) 07/04/24 11:38 Total Protein 7.0 g/dL (6.6-8.7) 07/04/24 11:38 Albumin 4.7 g/dL (3.5-5.2) 07/04/24 11:38 Globulin 2.3 g/dL (1.3-4.6) 07/04/24 11:38 Triglycerides 215 mg/dL (0-150) H 07/04/24 12:59 Cholesterol 294 mg/dL (0-200) H 07/04/24 12:59 LDL Cholesterol, Calc 213 mg/dL (50-129) H 07/04/24 12:59 HDL Cholesterol 38 mg/dL (60-100) L 07/04/24 12:59 LDL/HDL Ratio 5.61 RATIO (0.00-3.22) H 07/04/24 12:59 Cholesterol/HDL Ratio 7.74 mg/dL (1.0-5.00) H 07/04/24 12:59 Lipase 30 U/L (13-60) 07/04/24 11:38 TSH 0.59 uIU/mL (0.27-4.20) 07/04/24 12:59 Urine Opiates Screen Negative ng/mL (Negative) 07/04/24 15:44 Ur Barbiturates Screen Negative ng/mL (Negative) 07/04/24 15:44 Ur Phencyclidine Scrn Negative ng/mL (Negative) 07/04/24 15:44 Ur Amphetamines Screen Negative ng/mL (Negative) 07/04/24 15:44 U Benzodiazepines Scrn Negative ng/mL (Negative) 07/04/24 15:44 Urine Cocaine Screen Negative ng/mL (Negative) 07/04/24 15:44 U Marijuana (THC) Screen Positive ng/mL (Negative) H 07/04/24 15:44 Ethyl Alcohol < 10 mg/dL (0-10) 07/04/24 11:38 Vitals Last Vital Signs Temp 98.2 F 07/05/24 08:00 Pulse 78 07/05/24 08:00 Resp 19 H 07/05/24 08:00 BP 140/92 07/05/24 08:00 Pulse Ox 99 07/05/24 08:00 O2 Del Method Room Air 07/05/24 08:00 Discharge Plan Discharge Patient Disposition: Home Condition: Stable Prescriptions: New atorvastatin 40 mg Tablet 40 mg PO BEDTIME 30 Days Qty: 30 0RF aspirin 81 mg Tablet,Delayed Release (Dr/Ec) 81 mg PO DAILY 30 Days Qty: 30 0RF carvedilol 3.125 mg Tablet 3.125 mg PO BID 30 Days Qty: 60 0RF nitroglycerin 0.4 mg Tablet, Sublingual 0.4 mg sublingual Q5M PRN (Reason: Chest Pain) 30 Days Qty: 30 0RF Continued gabapentin 100 mg capsule 100 mg PO TID Qty: 90 3RF insulin glargine [Basaglar KwikPen U-100 Insulin] 100 unit/mL (3 mL) insulin pen 20 unit SUBCUT BID Qty: 15 3RF insulin lispro 100 unit/mL insulin pen 20 unit SUBCUT TID No Action (DME) Easy Touch BluLink Test Strip Strip See Rx Instructions .Route Qty: 50 0RF Rx Instructions: As directed (DME) pen needle, diabetic 32 gauge x 5/32 needle See Rx Instructions .Route Qty: 200 1RF Rx Instructions: As directed Discharge Orders: Discharge Order (Routine); Ordered 07/05/24 Ordered By: Davide May Referrals: Eva Ramírez NP [Primary Care Provider] - 07/24/24 10:00 am Michelle Leahy FNP [Nurse Practitioner] - 07/18/24 2:45 pm Discharge Diet: Cardiac Discharge Activity: Resume usual activity Patient Instructions: Nitroglycerin (By mouth), Aspirin (By mouth), Atorvastatin (By mouth), Carvedilol (By mouth) (Coreg, Coreg CR, Hypertenevide- 12.5), Chest Pain (DC), Chest Pain Stoplight, Opioid Safety Activity Restrictions/Additional Instructions: - If you have any recurrent chest pain please come back to the emergency room Discharge Attestations Time Spent in Discharge Care*: greater than 30 min Status at Discharge: Cognitive status at discharge: cognitively intact , Behavioral status at discharge: cooperative , Quality Metrics Clinical Quality Measures [ No reported AMI, CVA or VTE this stay] Coding Level of Care Code 81021 Total time (in minutes) for Discharge: 45 Diagnoses No pertinent past surgical history Z78.9 Chest pain R07.9
--- NOTE | 2024-07-05 16:32 | NMCV_ITS ---
NM nabor perf SPECT r/s* [id number] John Lopez Age: 34 Gender: M : 1990 Exam Date: 07/05/2024 16:32 Ordering Phys: Davide May MD Technologist: JIN Coon Exam Location: [facility] Indications: cp STRESS TEST [facility] IMAGE PROTOCOL Rest/Stress 1 Lexiscan Day Radiopharmaceutical Dose (mCi) Administration Site Administered by Rest: Tc-99m 10.7 IV Emeli Dial, PROGRAM DEVELOPMENT SPECIALIST Sestamibi Stress:Tc-99m 33 IV Emeli Jayro, PROGRAM DEVELOPMENT SPECIALIST Sestamibi Rest: 05-Jul-2024 60 Discovery 630 Stress: 05-Jul-2024 Discovery 630 0.4mg Lexiscan. Images obtained in supine and prone position. SPECT RESULTS Technical Quality: Good Raw Data Analysis: Normal Image Corrections: No attenuation or motion correction applied Summed Stress Score: 0 Summed Rest Score: 0 Summed Difference Score: 0 PERFUSION FINDINGS Small area of fixed perfusion defect noted in the apex of the left ventricle suggestive of possible apical thinning artifact. FUNCTIONAL RESULTS (calculated via Gated SPECT) Stress Image LV EF (%): 48 Stress EDV (mL):122 TID: 1.58 Stress ESV (mL):64 FUNCTIONAL FINDINGS: There appeared to be global hypokinesis left ventricle ejection fraction appeared to be moderately reduced,TID ratio is elevated could be secondary to left ventricle hypertrophy/subendocardial ischemia however cannot rule out multivessel coronary artery disease. IMPRESSIONS This study is negative for ischemia, given elevated TID ratio differential diagnosis could be left ventricle hypertrophy/subendocardial ischemia however cannot rule out multivessel coronary artery disease, clinical correlation advised. Montserrat Diaz MD (Electronically Signed) Final Date: 05 July 2024 09:12 S
== END 2024-07-05 13:43 | disposition home or self-care (01) ==
LOC: ER 14:05 → CSU 15:51
PROVIDERS: Internal Medicine; Admitting Provider Family Medicine; Emergency Provider Emergency Medicine; Visit Provider Family Medicine
DX: R07.9 Chest pain, unspecified (principal); Z78.9 Other specified health status; E10.40 Type 1 diabetes mellitus with diabetic neuropathy, unspecified; E78.5 Hyperlipidemia, unspecified; Z82.49 Family history of ischemic heart disease and other diseases of the circulatory system; F17.200 Nicotine dependence, unspecified, uncomplicated; J45.909 Unspecified asthma, uncomplicated
CPT/HCPCS: 36415; 36416; 71045; 78452; 80048; 80053; 80061; 80306; 80307; 82962; 83690; 83880; 84443; 84484; 85025; 85378; 85730; 93005; 93017; 93306; 94664; 96372; 96374; 96375; 99285; A9500; G0378; J1644; J1815; J2470; J2785

== ENCOUNTER 2024-07-19 20:29 | Emergency (ER) | payer OTHER, MEDICAID, SELFPAY ==
[2024-07-19] VITALS (13 sets, daily range): BP systolic 110–133; BP diastolic 69–86; PULSE 138; RESP 18; TEMP 36.7; O2SAT 94–99; BMI 22.4
--- NOTE | 2024-07-19 20:41 | XRR_ITS ---
PROCEDURE INFORMATION: Exam: XR Abdomen Exam date and time: 07/19/2024 9:07 PM Age: 34 years old Clinical indication: Abdominal pain; Additional info: Abd pain TECHNIQUE: Imaging protocol: Radiologic exam of the abdomen. Views: Frontal supine view of the abdomen. 1 View. COMPARISON: CR XR chest 1V portable [id number] 07/04/2024 11:07 AM FINDINGS: Gastrointestinal tract: Moderate stool burden may represent constipation. No mechanical obstruction. Bones/joints: Unremarkable. XR/XR abdomen 1V* [id number] IMPRESSION: Moderate stool burden may represent constipation.
--- NOTE | 2024-07-19 21:09 | W.ED.ABDPA2 ---
HPI - Abdominal Pain General: Chief Complaint: Abdominal Pain Stated Complaint: abd pain Time Seen by Provider: 07/19/24 20:35 History of Present Illness: 34-year-old man with a history of type 1 diabetes who presents emergency room with diffuse abdominal pain and constipation. He says he does not have good bowel movements and some time now. He is had some nausea and dry heaves. No focal abdominal pain. He is taken a couple of [id number] remedies but has not had any results. Related Data Home Medications Medication Instructions Recorded Confirmed insulin lispro 100 unit/mL 20 unit SUBCUT TID 07/04/24 07/04/24 subcutaneous pen Previous Rx's Medication Instructions Recorded insulin glargine 100 unit/mL (3 20 unit (0.2 mL) SUBCUT BID #15 mL 06/09/24 mL) subcutaneous pen (Basaglar KwikPen U-100 Insulin) blood sugar diagnostic (Easy Touch #50 ea 06/16/24 BluLink Test Strip) gabapentin 100 mg capsule 100 mg PO TID #90 caps 06/19/24 pen needle, diabetic 32 gauge x #200 ea 07/04/24 aspirin 81 mg tablet,delayed 81 mg PO DAILY 30 days #30 tabs 07/05/24 release atorvastatin 40 mg tablet 40 mg PO BEDTIME 30 days #30 tabs 07/05/24 carvedilol 3.125 mg tablet 3.125 mg PO BID 30 days #60 tabs 07/05/24 nitroglycerin 0.4 mg sublingual 0.4 mg sublingual Q5M PRN Chest 07/05/24 tablet Pain 30 days #30 tabs glycerin (adult) 1 supp IA DAILY PRN constipation 07/20/24 #12 ea magnesium citrate 296 ml PO ONCE #296 mL 07/20/24 ondansetron 4 mg disintegrating 4 mg PO Q8H PRN nausea and 07/20/24 tablet vomiting #10 tabs polyethylene glycol 3350 17 17 g PO DAILY #510 grams 07/20/24 gram/dose oral powder (Miralax) Allergies Allergy/AdvReac Type Severity Reaction Status Date / Time No Known Allergies Allergy Verified 06/19/24 07:19 Review of Systems Narrative: Constitutional symptoms: Negative except as documented in HPI. Skin symptoms: Negative except as documented in HPI. Eye symptoms: Negative except as documented in HPI. ENMT symptoms: Negative except as documented in HPI. Respiratory symptoms: Negative except as documented in HPI. Cardiovascular symptoms: Negative except as documented in HPI. Gastrointestinal symptoms: Negative except as documented in HPI. Genitourinary symptoms: Negative except as documented in HPI. Musculoskeletal symptoms: Negative except as documented in HPI. Neurologic symptoms: Negative except as documented in HPI. Psychiatric symptoms: Negative except as documented in HPI. Endocrine symptoms: Negative except as documented in HPI. PFSH ED PFSH: Medical History Diabetic neuropathy Diabetes type 1, uncontrolled Asthma Diabetes Surgical History No pertinent past surgical history Family History Father CAD (coronary artery disease) Other Hypertension Social History Smoking and tobacco/nicotine status: never used tobacco/nicotine Alcohol intake: never Substance/Drug Use: current Physical Exam Narrative: EXAM NARRATIVE: General: Alert, no acute distress. Skin: Warm, dry. Head: Normocephalic, atraumatic. Neck: Supple, trachea midline. Eye: Extraocular movements are intact. Ears, nose, mouth and throat: Tacky oral mucosa Cardiovascular: Regular, Normal peripheral perfusion. Respiratory: Lungs are clear to auscultation, respirations are non-labored, breath sounds are equal, Symmetrical chest wall expansion. Gastrointestinal: Soft, Nontender, Non distended Musculoskeletal: Normal ROM, no deformity. Neurological: Alert and oriented, No focal neurological deficit observed. Psychiatric: Cooperative, appropriate mood & affect. Course Vital Signs: Vital signs: Vital Signs Temperature 98.1 F 07/19/24 20:33 Pulse Rate 95 07/20/24 00:45 Respiratory Rate 18 07/19/24 20:33 Blood Pressure 110/79 07/20/24 00:45 Pulse Oximetry 97 07/20/24 00:45 Oxygen Delivery Me thod Room Air 07/19/24 20:33 MDM - Abdominal Pain Medical Decision Making Medical decision making: Differential diagnosis including but not limited to and based on the above HPI, review of systems and physical exam: - patient with complaint of constipation: Small bowel obstruction. Gastroparesis. Constipation. Also evaluation for urinary retention, liver disease, renal failure. Orders placed to evaluate differential diagnosis based on the above differential, HPI and physical exam X-ray of the abdomen: Moderate stool burden, constipation. This was reviewed and interpreted by myself the emergency room physician. I also reviewed the radiology report. CT of the abdomen and pelvis: Multiple loops of fluid distended small bowel are noted in the left upper quadrant. No transition point. Patient tolerates med citrate without any vomiting so I do not believe this is a bowel obstruction. This was reviewed and interpreted by myself the emergency room physician. I also reviewed the radiology report. Lab Review: Laboratory results were reviewed and interpreted by myself the emergency room physician. Lab work is fairly unremarkable. No leukocytosis. No anemia. No renal failure. I reviewed the patient's medical record. Reexamination: Patient has tolerated a bottle of mag citrate. He has not started having stools yet. We discussed return the emergency room if he starts having vomiting. Assessment and plan: Constipation Diabetes Dehydration ?Patient was tachycardic and appeared dry on exam and is being treated for constipation so I did give a liter of fluids. - Discharged home - Discussed findings and plan with patient. Answered any questions. - All laboratory values were reviewed and interpreted personally by myself, the ER physician - All imaging was reviewed and interpreted personally by myself, the ER physician. - Evaluation and treatment of this problem were appropriate in the emergency setting Lab Data 07/19/24 21:21 07/19/24 21:21 Labs/Radiology: Radiology Impressions Abdomen X-Ray 07/19/24 20:41 IMPRESSION: Moderate stool burden may represent constipation. Abdomen/Pelvis CT 07/19/24 21:55 IMPRESSION: Multiple loops of fluid distended small bowel are noted in the left upper quadrant of the abdomen with no definite transition points. This may be secondary to an acute enteritis, however a developing small bowel obstruction cannot be completely excluded. Recommend correlation with clinical history and close clinical follow-up. Laboratory Results WBC 9.07 10^3/uL (3.29-11.43) 07/19/24 21:21 RBC 5.82 10^6/uL (3.85-5.65) H 07/19/24 21:21 Hgb 16.60 g/dL (11.27-16.99) 07/19/24 21:21 Hct 47.5 % (37-53) 07/19/24 21:21 MCV 81.6 fl (82-101) L 07/19/24 21:21 MCH 28.5 pg (27-33) 07/19/24 21: MCHC 34.9 g/dL (30-55) 07/19/24 21:21 RDW 11.6 % (12.1-15.1) L 07/19/24 21:21 Plt Count 356 10^3/cmm (157-399) 07/19/24 21:21 MPV 8.6 fL (7.4-10.4) 07/19/24 21:21 Neut % (Auto) 39.9 % 07/19/24 21: Lymph % (Auto) 48.7 % 07/19/24 21:21 [place] % (Auto) 8.6 % 07/19/24 21:21 Eos % (Auto) 1.8 % 07/19/24 21: Baso % (Auto) 0.8 % 07/19/24 21: Neut # (Auto) 3.62 10^3/uL (1.8-7.7) 07/19/24 21: Lymph # (Auto) 4.4 10^3/uL (0.8-4.8) 07/19/24 21:21 [place] # (Auto) 0.8 10^3/uL (0.2-0.9) 07/19/24 21:21 Eos # (Auto) 0.2 10^3/uL (0.0-0.8) 07/19/24 21:21 Baso # (Auto) 0.1 10^3/uL (0.0-0.1) 07/19/24 21:21 Nucleated RBC % (auto) 0 % 07/19/24 21: Nucleated RBCs # 0.0 /100WBC 07/19/24 21:21 Sodium 136 mmol/L (136-145) 07/19/24 21:21 Potassium 3.4 mmol/L (3.5-5.1) L 07/19/24 21:21 Chloride 98 mmol/L (98-107) 07/19/24 21:21 Carbon Dioxide 24 mmol/L (22-29) 07/19/24 21:21 Anion Gap 17.4 (5-19) 07/19/24 21:21 BUN 14 mg/dL (6-20) 07/19/24 21:21 Creatinine 0.6 mg/dL (0.7-1.2) L 07/19/24 21:21 GFR Calculation 153.3 mL/min (90-130) H 07/19/24 21:21 Glucose 81 mg/dL (65-115) 07/19/24 21:21 Calculated Osmolality 282 mOsm/kg (285-295) L 07/19/24 21:21 Calcium 9.6 mg/dL (8.5-10.5) 07/19/24 21:21 Total Bilirubin 0.3 mg/dL (0.15-1.2) 07/19/24 21:21 AST 16 U/L (0-40) 07/19/24 21:21 ALT 21 U/L (0-41) 07/19/24 21:21 Alkaline Phosphatase 94 U/L (40-130) 07/19/24 21:21 Total Protein 7.2 g/dL (6.6-8.7) 07/19/24 21:21 Albumin 4.6 g/dL (3.5-5.2) 07/19/24 21:21 Globulin 2.6 g/dL (1.3-4.6) 07/19/24 21: Lipase 40 U/L (13-60) 07/19/24 21:21 Urine Color Yellow (Yellow) 07/19/24 21:35 Urine Appearance Clear (CLEAR) 07/19/24 21:35 Urine pH 5.5 (5-7) 07/19/24 21:35 Ur Specific Call 1.032 (1.005-1.030) H 07/19/24 21:35 Urine Protein 1+ (Negative) A 07/19/24 21:35 Urine Glucose (UA) 3+ (Normal) H 07/19/24 21:35 Urine Ketones 2+ (Negative) H 07/19/24 21:35 Urine Blood Negative (Negative) 07/19/24 21:35 Urine Nitrate Negative (Negative) 07/19/24 21:35 Urine Bilirubin Negative (Negative) 07/19/24 21: Urine Urobilinogen 1.0 mg/dL (Negative) 07/19/24 21:35 Ur Leukocyte Esterase Negative (Negative) 07/19/24 21:35 Urine RBC 0-2 /hpf (0-2) 07/19/24 21:35 Urine WBC 6-10 /hpf (0-5) 07/19/24 21:35 Ur Squamous Epith Cells 6-10 /hpf (0-5) 07/19/24 21:35 Amorphous Sediment Not Reportable 07/19/24 21:35 Urine Bacteria None seen /hpf (NONE) 07/19/24 21:35 Hyaline Casts 6.17 /lpf 07/19/24 21:35 Serum Ketones Negative (Negative) 07/19/24 21:21 All radiology interpretation(s) finalized by discharge Discharge Plan Discharge Patient Disposition: Home Clinical Impression: Constipation, Dehydration Condition: Stable Prescriptions: New polyethylene glycol 3350 [Miralax] 17 gram/dose powder 17 g PO DAILY Qty: 510 0RF Rx Instructions: Take 1-2 scoops daily for the next 3 months to keep stools soft ondansetron 4 mg tablet,disintegrating 4 mg PO Q8H PRN (Reason: nausea and vomiting) Qty: 10 0RF glycerin (adult) Suppository 1 supp IA DAILY PRN (Reason: constipation) Qty: 12 0RF magnesium citrate Solution 296 ml PO ONCE Qty: 296 0RF No Action gabapentin 100 mg capsule 100 mg PO TID Qty: 90 3RF (DME) Easy Touch BluLink Test Strip Strip See Rx Instructions .Route Qty: 50 0RF Rx Instructions: As directed (DME) pen needle, diabetic 32 gauge x 5/32 needle See Rx Instructions .Route Qty: 200 1RF Rx Instructions: As directed insulin glargine [Basaglar KwikPen U-100 Insulin] 100 unit/mL (3 mL) insulin pen 20 unit SUBCUT BID Qty: 15 3RF insulin lispro 100 unit/mL insulin pen 20 unit SUBCUT TID atorvastatin 40 mg Tablet 40 mg PO BEDTIME 30 Days Qty: 30 0RF aspirin 81 mg Tablet,Delayed Release (Dr/Ec) 81 mg PO DAILY 30 Days Qty: 30 0RF carvedilol 3.125 mg Tablet 3.125 mg PO BID 30 Days Qty: 60 0RF nitroglycerin 0.4 mg Tablet, Sublingual 0.4 mg sublingual Q5M PRN (Reason: Chest Pain) 30 Days Qty: 30 0RF Discharge Orders: Discharge ED (Routine); Ordered 07/20/24 Ordered By: Jessica Izquierdo Referrals: Eva Ramírez, OMAIRA [Primary Care Provider] - Discharge Diet: Advance as tolerated Discharge Activity: Increase activity as tolerated Patient Instructions: Constipation (ED), Opioid Safety, Pain Management Activity Restrictions/Additional Instructions: Thank you for choosing [facility] for your healthcare needs today. Please realize this is an emergency room and that we are providing you with a medical screening exam and this may not be complete and all inclusive of all the testing and or work up that you may need to determine your ailment or severity of your illness. You have been screened and evaluated and felt safe for discharge. Health conditions do change or evolve sometimes and as such it is important that you follow up with your Primary Doctor to be re checked, 3-5 days is a general good time frame for follow up. You are always welcome to return to the ED for re assessment if your symptoms are worsening or you have new concerns Coding Level of Care Code ED Sustainable Products Marketing Manager for Ger Bridges
[2024-07-19 21:28] LABS: Basophils # 0.1 10^3/uL (0.0-0.1); Basophils % 0.8 %; Eosinophils # 0.2 10^3/uL (0.0-0.8); Eosinophils % 1.8 %; Hematocrit 47.5 % (37-53); Lymphocytes # 4.4 10^3/uL (0.8-4.8); Lymphocytes % 48.7 %; Mean Corpuscular HGB Conc 34.9 g/dL (30-55); Mean Corpuscular Hemoglobin 28.5 pg (27-33); Mean Corpuscular Volume 81.6 fl (82-101); Mean Platelet Volume 8.6 fL (7.4-10.4); Monocytes # 0.8 10^3/uL (0.2-0.9); Monocytes % 8.6 %; Neutrophils # 3.62 10^3/uL (1.8-7.7); Neutrophils % 39.9 %; Nucleated Red Blood Cells % 0 %; Platelet Count 356 10^3/cmm (157-399); Red Blood Count 5.82 10^6/uL (3.85-5.65); Red Cell Distribution Width 11.6 % (12.1-15.1); White Blood Count 9.07 10^3/uL (3.29-11.43)
[2024-07-19 21:37] LABS: Ketone (Acetest) Serum Negative (Negative)
[2024-07-19 21:41] LABS: Bilirubin Urine Negative (Negative); Blood Urine Negative (Negative); Glucose Urine UA 3+ (Normal); Ketones Urine 2+ (Negative); Leukocyte Esterase Urine Negative (Negative); Nitrate Urine Negative (Negative); Protein Urine 1+ (Negative); Urine Appearance Clear (CLEAR); Urine Color Yellow (Yellow); pH Urine 5.5 (5-7)
[2024-07-19 21:43] LABS: Add Urine Microscopic? YES; Bacteria Urine None Seen /hpf; Hyaline Casts Urine 6.17 /lpf; RBC Urine 0-2 /hpf (0-2)
[2024-07-19 21:44] LABS: Alanine Aminotransferase 21 U/L (0-41); Albumin Level 4.6 g/dL (3.5-5.2); Alkaline Phosphatase 94 U/L (40-130); Anion Gap 17.4 (5-19); Aspartate Amino Transferase 16 U/L (0-40); Blood Urea Nitrogen 14 mg/dL (6-20); Calcium 9.6 mg/dL (8.5-10.5); Carbon Dioxide 24 mmol/L (22-29); Chloride 98 mmol/L (98-107); Creatinine Clr Calc Pharmacy 149.2215; Globulin 2.6 g/dL (1.3-4.6); Glomerular Filtration Rate 153.3 mL/min (90-130); Glucose 81 mg/dL (65-115); Lipase 40 U/L (13-60); Osmolality Calculated 282 mOsm/kg (285-295); Potassium 3.4 mmol/L (3.5-5.1); Sodium 136 mmol/L (136-145); Total Bilirubin 0.3 mg/dL (0.15-1.2); Total Protein 7.2 g/dL (6.6-8.7)
[2024-07-19 21:47] LABS: Specific Gravity, Urine 1.032 (1.005-1.030)
--- NOTE | 2024-07-19 21:55 | CTR_ITS ---
PROCEDURE INFORMATION: Exam: CT Abdomen And Pelvis With Contrast Exam date and time: 07/19/2024 10:15 PM Age: 34 years old Clinical indication: Abdominal pain TECHNIQUE: Imaging protocol: Computed tomography of the abdomen and pelvis with contrast. Radiation optimization: All CT scans at this facility use at least one of these dose optimization techniques: automated exposure control; mA and/or kV adjustment per patient size (includes targeted exams where dose is matched to clinical indication); or iterative reconstruction. Contrast material: OMNI 350; Contrast volume: 75 ml; Contrast route: INTRAVENOUS (IV); COMPARISON: CR (ABDOMEN, ) 07/19/2024 9:07 PM RADIATION DOSE METRICS: Total DLP (mGy-cm): 336.06 FINDINGS: Liver: Unremarkable. Gallbladder and biliary ducts: Unremarkable. Pancreas: Unremarkable. Spleen: Unremarkable. Adrenal glands: Unremarkable. Kidneys and ureters: Unremarkable. No hydronephrosis. Stomach and bowel: There are multiple fluid-filled loops of small bowel at the upper limits of normal in the left upper quadrant of the abdomen with mucosal thickening and no definite transition points. (Series 3 images 22-55). Appendix: Unremarkable. Intraperitoneal space: No free air or free fluid. Vasculature: Unremarkable. Lymph nodes: Mild reactive mesenteric lymph nodes. Urinary bladder: Unremarkable. Reproductive: Unremarkable. Bones/joints: Unremarkable. Soft tissues: Unremarkable. CT/CT abdomen pelvis w con* [id number] IMPRESSION: Multiple loops of fluid distended small bowel are noted in the left upper quadrant of the abdomen with no definite transition points. This may be secondary to an acute enteritis, however a developing small bowel obstruction cannot be completely excluded. Recommend correlation with clinical history and close clinical follow-up.
[2024-07-19] MEDS: iohexol 350 mg/mL 500 mL Btl (per mL) IV (22:16)
[2024-07-19] MEDS: sodium chloride 0.9% 1,000 ML 999 ML IV (23:18)
[2024-07-19] MEDS: ondansetron 2 mg/ML SDV 2 mL 4 MG IVP (23:19)
[2024-07-19] MEDS: magnesium citrate Btl 296 mL PO (23:55)
[2024-07-20] VITALS: BP 129/88; O2SAT 97
[2024-07-20 00:15] VITALS: BP 117/73; O2SAT 96
[2024-07-20 00:30] VITALS: BP 135/74; PULSE 105; O2SAT 97
[2024-07-20 00:45] VITALS: BP 110/79; PULSE 95; O2SAT 97
[2024-07-20 00:59] VITALS: BP 110/79; PULSE 86; RESP 16; O2SAT 97
[2024-07-20 01:13] VITALS: BP 137/91; PULSE 104; RESP 20; O2SAT 95
--- NOTE | 2024-07-20 01:45 | PC.NURSE ---
0113: Dr. Izquierdo notified of heart rate. Verbal orders received to discharge patient.
== END 2024-07-20 01:13 | disposition home or self-care (01) ==
PROVIDERS: Emergency Medicine; Emergency Provider Emergency Medicine
DX: K59.00 Constipation, unspecified (principal); E86.0 Dehydration; Z79.4 Long term (current) use of insulin; Z79.82 Long term (current) use of aspirin; E10.40 Type 1 diabetes mellitus with diabetic neuropathy, unspecified
CPT/HCPCS: 36415; 74018; 74177; 80053; 81001; 82009; 83690; 85025; 96361; 96374; 99285; J2405; J7030

== ENCOUNTER 2024-08-14 19:01 | Observation (INO) | payer OTHER, MEDICAID, SELFPAY ==
[2024-08-14] VITALS (13 sets, daily range): BP systolic 114–152; BP diastolic 83–104; PULSE 98–126; RESP 18; TEMP 36.7; O2SAT 97–100; BMI 19.8
--- NOTE | 2024-08-14 19:05 | XRR_ITS ---
PROCEDURE INFORMATION: Exam: XR Abdomen Exam date and time: 08/14/2024 7:16 PM Age: 34 years old Clinical indication: Constipation; Additional info: Constipation, n/v, abd pain TECHNIQUE: Imaging protocol: Radiologic exam of the abdomen. Views: Frontal supine view of the abdomen. 1 View. COMPARISON: CT abdomen pelvis w con* [id number] 07/19/2024 10:15 PM FINDINGS: Gastrointestinal tract: Increased fecal content in the colon. Nonobstructive bowel gas pattern. There is a new 6 mm calcification in the abdomen just to the left of midline at the L2 level, this may represent a fecalith in the transverse colon. Intraperitoneal space: No free intraperitoneal air. Organs: No organomegaly. Bones/joints: Unremarkable for age. XR/XR abdomen 1V* [id number] IMPRESSION: 1. Nonobstructed bowel gas pattern. 2. Increased fecal content in the colon. 3. There is a new 6 mm calcification in the abdomen just to the left of midline at the L2 level, this may represent a fecalith in the transverse colon.
--- NOTE | 2024-08-14 19:07 | XRR_ITS ---
PROCEDURE INFORMATION: Exam: XR Chest Exam date and time: 08/14/2024 7:13 PM Age: 34 years old Clinical indication: Shortness of breath TECHNIQUE: Imaging protocol: Radiologic exam of the chest. Views: 1 view. COMPARISON: CR XR chest 1V portable [id number] 07/04/2024 11:07 AM FINDINGS: Lungs: Lungs are clear bilaterally. Pleural spaces: No pleural effusion. No pneumothorax. Heart/Mediastinum: The cardiac silhouette and mediastinal contours are unremarkable. Bones/joints: Unremarkable for age. XR/XR chest 1V portable [id number] IMPRESSION: Negative chest radiograph.
--- NOTE | 2024-08-14 19:17 | ED_ITS ---
HPI - Abdominal Pain 2 General: Chief Complaint: Abdominal Pain Stated Complaint: ABD PAIN Time Seen by Provider: 08/14/24 19:05 History of Present Illness: Patient presents to the ER with abdominal pain and shortness of breath. Patient said he has been going on several days. He says abdominal pains been going on for several weeks he has appointment for CT scan from his PCP check figure what this is. Patient has not had a bowel movement in over a week. Patient's heart rate upon arrival was 126 beats a minute. Patient is a diabetic. Patient has not been able to eat or drink much of anything today due to the pain. Related Data Home Medications Medication Instructions Recorded Confirmed insulin lispro 100 unit/mL 20 unit SUBCUT TID 07/04/24 08/09/24 subcutaneous pen Previous Rx's Medication Instructions Recorded insulin glargine 100 unit/mL (3 20 unit (0.2 mL) SUBCUT BID #15 mL 06/09/24 mL) subcutaneous pen (Basaglar KwikPen U-100 Insulin) pen needle, diabetic 32 gauge x #200 ea 07/04/24 ondansetron 4 mg disintegrating 4 mg PO Q8H PRN nausea and 07/20/24 tablet vomiting #10 tabs accu-check guide glucose test #1 ea 08/09/24 strips dicyclomine 10 mg capsule 10 mg PO BID #60 caps 08/09/24 gabapentin 100 mg capsule 200 mg (2 x 100 mg) PO TID #180 08/09/24 caps omeprazole 20 mg capsule,delayed 20 mg PO DAILY #30 caps 08/09/24 release polyethylene glycol 3350 17 17 g PO DAILY #510 grams 08/09/24 gram/dose oral powder (Miralax) Allergies Allergy/AdvReac Type Severity Reaction Status Date / Time No Known Allergies Allergy Verified 08/14/24 19:07 Review of Systems 2 General: Reports: 10 or more systems reviewed and unremarkable except in HPI and below PFSH ED 2 PFSH: Medical History Abdominal pain Diabetic neuropathy Diabetes type 1, uncontrolled Asthma Diabetes Surgical History No pertinent past surgical history Family History Father CAD (coronary artery disease) Other Hypertension Social History Smoking and tobacco/nicotine status: current every day tobacco/nicotine user Alcohol intake: never Substance/Drug Use: current Physical Exam 2 Const: COMMON NORMALS: no acute distress, average body habitus, patient oriented x3, no limitations, healthy appearing, alert and well nourished HENMT: COMMON NORMALS: normocephalic, atraumatic, hearing grossly normal bilaterally, external ears normal, Normal external nose present and moist oral mucous membranes HEAD & SCALP: normocephalic and atraumatic NOSE: Normal external nose present EXTERNAL EAR: Yes external ears normal Neck/C-Spine: COMMON NORMALS: no JVD Chest: COMMONS NORMALS: normal inspection of the chest and normal palpation of entire chest wall Resp: COMMON NORMALS: normal respiratory effort, No retractions, No use of accessory muscles and clear to auscultation bilaterally AUSCULTATION: clear to auscultation bilaterally Cardio: COMMON NORMALS: no JVD, regular rate, regular rhythm, S1 normal heart sound present, S2 normal heart sound present, No gallops present (Cardio), No clicks present (Cardio), No murmurs present (Cardio) and No rub (Cardio) R ATE: regular rate RHYTHM: regular rhythm HEART SOUNDS: S1 normal heart sound present and S2 normal heart sound present GI: COMMON NORMALS: Normal to inspection, nondistended, normoactive bowel sounds present, Soft to palpation, No hepatosplenomegaly present and no masses; negative for non-tender (Tender to palpation lower abdomen and suprapubic area.) PALPATION: Yes Soft to palpation and Yes No hepatosplenomegaly present Neuro: COMMON NORMALS: patient oriented x3 SENSORIUM/ORIENTATION: Yes alert Course 2 Vital Signs: Vital signs: Vital Signs Temperature 98.0 F 08/14/24 19:02 Pulse Rate 126 H 08/14/24 19:02 Respiratory Rate 18 08/14/24 19:02 Blood Pressure 114/85 08/14/24 19:02 Pulse Oximetry 100 08/14/24 19:02 Oxygen Delivery Me thod Room Air 08/14/24 19:02 MDM - Abdominal Pain Medical Decision Making Patient ran to the ER with abdominal pain and pulse rate 126 bpm, positive serum ketones, ABG showed pH 7.3 approximately urine specific gravity 1.048, Dr. Aldana was consulted who agreed to place patient in ICU for DKA Medical Records I reviewed the patient's medical records. Lab Data I reviewed the patient's lab results. 08/14/24 19:14 08/14/24 19:14 Labs/Radiology: Radiology Impressions Abdomen X-Ray 08/14/24 19:05 IMPRESSION: 1. Nonobstructed bowel gas pattern. 2. Increased fecal content in the colon. 3. There is a new 6 mm calcification in the abdomen just to the left of midline at the L2 level, this may represent a fecalith in the transverse colon. Chest X-Ray 08/14/24 19:07 IMPRESSION: Negative chest radiograph. Laboratory Results WBC 8.69 10^3/uL (3.29-11.43) 08/14/24 19:14 RBC 5.71 10^6/uL (3.85-5.65) H 08/14/24 19:14 Hgb 16.40 g/dL (11.27-16.99) 08/14/24 19:14 Hct 46.6 % (37-53) 08/14/24 19:14 MCV 81.6 fl (82-101) L 08/14/24 19:14 MCH 28.7 pg (27-33) 08/14/24 19:14 MCHC 35.2 g/dL (30-55) 08/14/24 19:14 RDW 11.9 % (12.1-15.1) L 08/14/24 19:14 Plt Count 358 10^3/cmm (157-399) 08/14/24 19:14 MPV 8.8 fL (7.4-10.4) 08/14/24 19:14 Neut % (Auto) 62.5 % 08/14/24 19:14 Lymph % (Auto) 28.9 % 08/14/24 19:14 [place] % (Auto) 7.1 % 08/14/24 19:14 Eos % (Auto) 0.5 % 08/14/24 19:14 Baso % (Auto) 0.8 % 08/14/24 19:14 Neut # (Auto) 5.43 10^3/uL (1.8-7.7) 08/14/24 19:14 Lymph # (Auto) 2.5 10^3/uL (0.8-4.8) 08/14/24 19:14 [place] # (Auto) 0.6 10^3/uL (0.2-0.9) 08/14/24 19:14 Eos # (Auto) 0.0 10^3/uL (0.0-0.8) 08/14/24 19:14 Baso # (Auto) 0.1 10^3/uL (0.0-0.1) 08/14/24 19:14 Nucleated RBC % (auto) 0 % 08/14/24 19:14 Nucleated RBCs # 0.0 /100WBC 08/14/24 19:14 Specimen Type Arterial 08/14/24 20:07 Sample Site Radial, left 08/14/24 20:07 ABG pH 7.33 (7.35-7.45) L 08/14/24 20:07 ABG pCO2 23.4 mmHg (35-45) L 08/14/24 20:07 ABG pO2 113.0 mmHg (80.0-100.0) H 08/14/24 20:07 ABG HCO3 12.3 mmol/L (22-26) L 08/14/24 20:07 ABG O2 Saturation 98.7 08/14/24 20:07 ABG Base Excess -11.3 mmol/L (-2.0-2.0) L 08/14/24 20:07 Yang Test Pos 08/14/24 20:07 A-a O2 Gradient 0.6 mmHg (5-10) L 08/14/24 20:07 Hematocrit 51.7 % (42-52) 08/14/24 20:07 Hgb O2 Saturation 96.6 % (95-100) 08/14/24 20:07 Carboxyhemoglobin 1.2 %THgb (0.4-20.1) 08/14/24 20:07 Methemoglobin 1.0 % (0.4-1.5) 08/14/24 20:07 Total Hemoglobin 16.9 g/dL (14-18) 08/14/24 20:07 Sodium 133.0 mmol/L (131-143) 08/14/24 20:07 Potassium 3.8 mmol/L (3.5-5.0) 08/14/24 20:07 Glucose 319.0 mg/dL (70-115) H 08/14/24 20:07 Ionized Calcium 1.3 mmol/L (1.1-1.4) 08/14/24 20:07 O2 Delivery Device Nc 08/14/24 20:07 O2 Liters/Min 2.0 % 08/14/24 20:07 Mushroom Growing Supervisor ID [email or web address] 08/14/24 20:07 Sodium 128 mmol/L (136-145) L 08/14/24 19:14 Potassium 4.1 mmol/L (3.5-5.1) 08/14/24 19:14 Chloride 93 mmol/L (98-107) L 08/14/24 19:14 Carbon Dioxide 12 mmol/L (22-29) L 08/14/24 19:14 Anion Gap 27.1 (5-19) H 08/14/24 19:14 BUN 15 mg/dL (6-20) 08/14/24 19:14 Creatinine 0.6 mg/dL (0.7-1.2) L 08/14/24 19:14 GFR Calculation 153.3 mL/min (90-130) H 08/14/24 19:14 Glucose 357 mg/dL (65-115) H 08/14/24 19:14 Calculated Osmolality 281 mOsm/kg (285-295) L 08/14/24 19:14 Calcium 9.6 mg/dL (8.5-10.5) 08/14/24 19:14 Magnesium 1.8 mg/dL (1.7-2.3) 08/14/24 19:14 Total Bilirubin 0.3 mg/dL (0.15-1.2) 08/14/24 19:14 AST 9 U/L (0-40) 08/14/24 19:14 ALT 13 U/L (0-41) 08/14/24 19:14 Alkaline Phosphatase 99 U/L (40-130) 08/14/24 19:14 Total Protein 7.7 g/dL (6.6-8.7) 08/14/24 19:14 Albumin 4.5 g/dL (3.5-5.2) 08/14/24 19:14 Globulin 3.2 g/dL (1.3-4.6) 08/14/24 19:14 Lipase 19 U/L (13-60) 08/14/24 19:14 Urine Color Yellow (Yellow) 08/14/24 19:44 Urine Appearance Clear (CLEAR) 08/14/24 19:44 Urine pH 5.0 (5-7) 08/14/24 19:44 Ur Specific [place] 1.048 (1.005-1.030) H 08/14/24 19:44 Urine Protein 1+ (Negative) A 08/14/24 19:44 Urine Glucose (UA) 3+ (Normal) H 08/14/24 19:44 Urine Ketones 4+ (Negative) 08/14/24 19:44 Urine Blood Negative (Negative) 08/14/24 19:44 Urine Nitrate Negative (Negative) 08/14/24 19:44 Urine Bilirubin Negative (Negative) 08/14/24 19:44 Urine Urobilinogen 1.0 mg/dL (Negative) 08/14/24 19:44 Ur Leukocyte Esterase Negative (Negative) 08/14/24 19:44 Urine RBC None /hpf (0-2) 08/14/24 19:44 Urine WBC None /hpf (0-5) 08/14/24 19:44 Ur Squamous Epith Cells 0-4 /hpf (0-5) H 08/14/24 19:44 Amorphous Sediment Not Reportable 08/14/24 19:44 Urine Bacteria None /hpf (NONE) 08/14/24 19:44 Coarse Granular Casts 0-4 /lpf H 08/14/24 19:44 Urine Mucus Trace /hpf 08/14/24 19:44 Serum Ketones Positive (Negative) H 08/14/24 19:14 All radiology interpretation(s) finalized by discharge Discharge Plan Discharge Patient Disposition: Admitted As Inpatient Clinical Impression: DKA (diabetic ketoacidosis) Qualifiers: Diabetes mellitus type: type 1 Diabetes mellitus complication detail: without coma Qualified Code(s): E10.10 - Type 1 diabetes mellitus with ketoacidosis without coma Condition: Stable Coding Level of Care Code ED C D Reactor Operator for Ger Bridges
[2024-08-14 19:23] LABS: Basophils # 0.1 10^3/uL (0.0-0.1); Basophils % 0.8 %; Eosinophils % 0.5 %; Hematocrit 46.6 % (37-53); Lymphocytes # 2.5 10^3/uL (0.8-4.8); Lymphocytes % 28.9 %; Mean Corpuscular HGB Conc 35.2 g/dL (30-55); Mean Corpuscular Hemoglobin 28.7 pg (27-33); Mean Corpuscular Volume 81.6 fl (82-101); Mean Platelet Volume 8.8 fL (7.4-10.4); Monocytes # 0.6 10^3/uL (0.2-0.9); Monocytes % 7.1 %; Neutrophils # 5.43 10^3/uL (1.8-7.7); Neutrophils % 62.5 %; Nucleated Red Blood Cells % 0 %; Platelet Count 358 10^3/cmm (157-399); Red Blood Count 5.71 10^6/uL (3.85-5.65); Red Cell Distribution Width 11.9 % (12.1-15.1); White Blood Count 8.69 10^3/uL (3.29-11.43)
[2024-08-14 19:36] LABS: Ketone (Acetest) Serum Positive (Negative)
[2024-08-14 19:43] LABS: Alanine Aminotransferase 13 U/L (0-41); Albumin Level 4.5 g/dL (3.5-5.2); Alkaline Phosphatase 99 U/L (40-130); Anion Gap 27.1 (5-19); Aspartate Amino Transferase 9 U/L (0-40); Blood Urea Nitrogen 15 mg/dL (6-20); Calcium 9.6 mg/dL (8.5-10.5); Carbon Dioxide 12 mmol/L (22-29); Chloride 93 mmol/L (98-107); Creatinine Clr Calc Pharmacy 142.1651; Globulin 3.2 g/dL (1.3-4.6); Glomerular Filtration Rate 153.3 mL/min (90-130); Glucose 357 mg/dL (65-115); Lipase 19 U/L (13-60); Magnesium 1.8 mg/dL (1.7-2.3); Osmolality Calculated 281 mOsm/kg (285-295); Potassium 4.1 mmol/L (3.5-5.1); Sodium 128 mmol/L (136-145); Total Bilirubin 0.3 mg/dL (0.15-1.2); Total Protein 7.7 g/dL (6.6-8.7)
[2024-08-14 19:58] LABS: Bilirubin Urine Negative (Negative); Blood Urine Negative (Negative); Glucose Urine UA 3+ (Normal); Ketones Urine 4+ (Negative); Leukocyte Esterase Urine Negative (Negative); Nitrate Urine Negative (Negative); Protein Urine 1+ (Negative); Urine Appearance Clear (CLEAR); Urine Color Yellow (Yellow)
[2024-08-14] MEDS: sodium chloride 0.9% 1,000 ML 999 ML IV (20:11)
[2024-08-14] MEDS: ondansetron 2 mg/ML SDV 2 mL 4 MG IVP ×2 (20:11→23:24)
[2024-08-14 20:12] LABS: Add Urine Microscopic? YES; Specific Gravity, Urine 1.048 (1.005-1.030); Squamous Epithelial Cell Urine 0-4 /hpf (0-5); UA Manual Slide Review YES; UA Slide Review UA Slide Review Perf
[2024-08-14 20:13] LABS: Coarse Granular Casts Urine 0-4 /lpf; Mucus Urine TRACE /hpf
[2024-08-14 20:17] LABS: ABG PCO2 23.4 mmHg (35-45); ABG PH Result 7.33 (7.35-7.45); Alveolar-Arterial Oxygen Gradi 0.6 mmHg (5-10); Arterial Blood Gas Hematocrit 51.7 % (42-52); Base Excess ABG -11.3 mmol/L (-2.0-2.0); Blood Gas Allen Test Pos; Blood Gas Sample Site Radial, left; Blood Gas Sample Type Arterial; Carboxyhemoglobin 1.2 %THgb (0.4-20.1); HCO3 ABG 12.3 mmol/L (22-26); HGB O2 Sat 96.6 % (95-100); Ionized Calcium Level - ABG 1.3 mmol/L (1.1-1.4); Oxygen Device NC; Oxygen Saturation ABG 98.7; Potassium Level - ABG 3.8 mmol/L (3.5-5.0); Total Hemoglobin 16.9 g/dL (14-18)
--- NOTE | 2024-08-14 21:31 | P.HP_ITS ---
Providers/Chief Complaint 2 Primary Care Provider: Eva Ramírez NP Chief Complaint: ABD PAIN History of Present Illness John Lopez is a 34 year old male who lives in a homeless senior living, uses insulin pump for type 1 diabetes, patient is stating that he stopped using insulin pump yesterday when he took a shower today start experiencing nausea and worsening abdominal pain that prompted his visit to the ER. In the ER he has been diagnosed with DKA. Patient has tenderness left hypogastric region, abdominal x-ray consistent with excessive stool burden, patient is stating that he has not had a bowel movement in last 14 days, he is passing gas, no emesis at all. He is badly constipated. Patient is stating that this constipation has been bothering him for last 4 weeks at least but has worsened in the last few days. Patient is stating that he is experiencing pain when he voids urine, UA requested He has been started on DKA protocol. Blood sugar 240 he is currently on dextrose normal saline with potassium 40 mill equivalent IV fluids Insulin drip running at the bedside I have requested lactulose and enema Patient endorses to marijuana Will request drug screen, TSH Review of Systems 2 Const: Denies: fever(s) Eyes: Denies: eye discomfort ENMT: Denies: throat pain Card: Denies: chest pain Resp: Denies: dyspnea GI: Reports: abdominal pain and nausea : Denies: flank pain Medications/Allergies Home Medications Medication Instructions Recorded Confirmed Last Taken Type insulin glargine 100 unit/mL (3 20 unit (0.2 mL) SUBCUT BID #15 mL 06/09/24 08/09/24 07/04/24 Rx mL) subcutaneous pen (Basaglar KwikPen U-100 Insulin) insulin lispro 100 unit/mL 20 unit SUBCUT TID 07/04/24 08/09/24 07/04/24 History subcutaneous pen pen needle, diabetic 32 gauge x #200 ea 07/04/24 08/09/24 Unknown Rx ondansetron 4 mg disintegrating 4 mg PO Q8H PRN nausea and 07/20/24 08/09/24 Unknown Rx tablet vomiting #10 tabs accu-check guide glucose test #1 ea 08/09/24 08/09/24 Unknown Rx strips dicyclomine 10 mg capsule 10 mg PO BID #60 caps 08/09/24 08/09/24 Unknown Rx gabapentin 100 mg capsule 200 mg (2 x 100 mg) PO TID #180 08/09/24 08/09/24 Unknown Rx caps omeprazole 20 mg capsule,delayed 20 mg PO DAILY #30 caps 08/09/24 08/09/24 Unknown Rx release polyethylene glycol 3350 17 17 g PO DAILY #510 grams 08/09/24 08/09/24 Unknown Rx gram/dose oral powder (Miralax) Allergies Allergy/AdvReac Type Severity Reaction Status Date / Time No Known Allergies Allergy Verified 08/14/24 19:07 PFSH Acute 2 PFSH: Medical History Abdominal pain Diabetic neuropathy Diabetes type 1, uncontrolled Asthma Diabetes Surgical History No pertinent past surgical history Family History Father CAD (coronary artery disease) Other Hypertension Social History Smoking and tobacco/nicotine status: current every day tobacco/nicotine user Alcohol intake: never Substance/Drug Use: current Vitals/I&O/Wt Last Vital Signs Temp 98.0 F 08/14/24 19:02 Pulse 126 H 08/14/24 19:02 Resp 18 08/14/24 19:02 BP 114/85 08/14/24 19:02 Pulse Ox 100 08/14/24 19:02 O2 Del Method Room Air 08/14/24 19:02 Weight last 48 hrs Weight 53.977 kg Physical Exam 2 Narrative: Awake and alert S1, S2 Currently on room air Pleasant and cooperative Tender hypogastric region left of midline GCS 15 Nonfocal neuroexam Awake and alert Dehydrated Data 08/14/24 19:14 08/14/24 22:00 A&P Assessment and plan (1) Non-compliance: (2) Diabetes type 1, uncontrolled: (3) DKA (diabetic ketoacidosis): Qualifiers: Diabetes mellitus complication detail: without coma Diabetes mellitus type: type 1 Qualified Code(s): E10.10 - Type 1 diabetes mellitus with ketoacidosis without coma (4) Abdominal pain: (5) Diabetic neuropathy: (6) Constipation: Plan DKA Patient did not apply insulin pump after taking a shower yesterday Complaining of dysuria Requested UA along drug screen Will give 1 dose of ceftriaxone Patient is afebrile Start DKA protocol Insulin with dextrose normal saline 40 mill equivalent potassium IV fluids BMP every 4 hours Patient has high anion gap acidosis Constipation: Lactulose and enema Check TSH Full code N.p.o. DVT prophylaxis Lovenox Patient is not sexually active Lives in a homeless senior living Patient is stating that he does not use long-acting insulin he is only using insulin pump at this point Attestations 2 Medical Necessity Statement*: Anticipate discharge within 40 hours Diagnoses Non-compliance Z91.199 Diabetes type 1, uncontrolled DKA (diabetic ketoacidosis) E10.10 Diabetes mellitus complication detail: without coma Diabetes mellitus type: type 1 Abdominal pain R10.9 Diabetic neuropathy E11.40 Constipation K59.00
[2024-08-14 22:06] LABS: Glucose Point of Care 242 mg/dL (70-110)
[2024-08-14] MEDS: dextrose 5%-ns + KCl 40 40 MEQ/1,000 ML BAG 100 MEQ IV (22:26)
[2024-08-14] MEDS: enoxaparin 40 mg/0.4 mL Syringe SUBCUT (22:27)
[2024-08-14] MEDS: famotidine 20 mg/2 mL INJ 40 MG IVP (22:27)
[2024-08-14 22:33] LABS: Blood Urea Nitrogen 13 mg/dL (6-20); Calcium 8.9 mg/dL (8.5-10.5); Carbon Dioxide 14 mmol/L (22-29); Chloride 100 mmol/L (98-107); Creatinine Clr Calc Pharmacy 142.1651; Glomerular Filtration Rate 153.3 mL/min (90-130); Glucose 262 mg/dL (65-115); Osmolality Calculated 283 mOsm/kg (285-295); Sodium 132 mmol/L (136-145)
[2024-08-14] MEDS: INSULIN REGULAR IN 0.9 % NACL 100 UNIT/100 ML BAG IV (22:34)
[2024-08-14 22:42] LABS: Glucose Point of Care 240 mg/dL (70-110)
[2024-08-14] MEDS: lactulose oral liq 20 gm/30 mL UDC 30 GM PO (23:07)
[2024-08-14] MEDS: cefTRIAXone 1,000 mg SDV 1000 MG IVP (23:10)
[2024-08-14 23:49] LABS: Anion Gap 21.2 (5-19); Blood Urea Nitrogen 13 mg/dL (6-20); Carbon Dioxide 15 mmol/L (22-29); Chloride 102 mmol/L (98-107); Creatinine Clr Calc Pharmacy 170.5982; Glomerular Filtration Rate 189.2 mL/min (90-130); Glucose 261 mg/dL (65-115); Osmolality Calculated 287 mOsm/kg (285-295); Potassium 4.2 mmol/L (3.5-5.1); Sodium 134 mmol/L (136-145); Thyroid Stimulating Hormone 0.95 uIU/mL (0.27-4.20)
[2024-08-14 23:54] LABS: Glucose Point of Care 296 mg/dL (70-110)
[2024-08-15] VITALS (16 sets, daily range): BP systolic 134–164; BP diastolic 81–103; PULSE 104–111; O2SAT 91–98
[2024-08-15 00:02] LABS: Amphetamines Screen Urine Negative (Negative); Barbiturates Screen Urine Negative (Negative); Benzodiazepines Screen Urine Negative (Negative); Cocaine Screen Urine Negative (Negative); Opiate Screen Urine Negative (Negative); PCP Screen Urine Negative (Negative); THC Screen Urine Positive (Negative)
[2024-08-15 01:10] LABS: Glucose Point of Care 191 mg/dL (70-110)
[2024-08-15 01:53] LABS: Glucose Point of Care 206 mg/dL (70-110)
[2024-08-15 02:25] LABS: Anion Gap 18.7 (5-19); Blood Urea Nitrogen 13 mg/dL (6-20); Calcium 9.2 mg/dL (8.5-10.5); Carbon Dioxide 17 mmol/L (22-29); Chloride 102 mmol/L (98-107); Creatinine Clr Calc Pharmacy 142.1651; Glomerular Filtration Rate 153.3 mL/min (90-130); Glucose 225 mg/dL (65-115); Osmolality Calculated 285 mOsm/kg (285-295); Potassium 3.7 mmol/L (3.5-5.1); Sodium 134 mmol/L (136-145)
[2024-08-15 03:56] LABS: Glucose Point of Care 235 mg/dL (70-110)
[2024-08-15 03:56] LABS: Glucose Point of Care 261 mg/dL (70-110)
[2024-08-15 05:03] LABS: Glucose Point of Care 266 mg/dL (70-110)
[2024-08-15 05:59] LABS: Basophils % 0.5 %; Eosinophils # 0.1 10^3/uL (0.0-0.8); Eosinophils % 0.8 %; Hematocrit 41.9 % (37-53); Lymphocytes # 2.5 10^3/uL (0.8-4.8); Lymphocytes % 31.8 %; Mean Corpuscular HGB Conc 34.6 g/dL (30-55); Mean Corpuscular Hemoglobin 28.2 pg (27-33); Mean Corpuscular Volume 81.5 fl (82-101); Mean Platelet Volume 8.4 fL (7.4-10.4); Monocytes # 0.6 10^3/uL (0.2-0.9); Neutrophils # 4.62 10^3/uL (1.8-7.7); Neutrophils % 58.8 %; Nucleated Red Blood Cells % 0 %; Platelet Count 316 10^3/cmm (157-399); Red Blood Count 5.14 10^6/uL (3.85-5.65); Red Cell Distribution Width 11.7 % (12.1-15.1); White Blood Count 7.86 10^3/uL (3.29-11.43)
[2024-08-15 06:03] LABS: Glucose Point of Care 216 mg/dL (70-110)
[2024-08-15 06:16] LABS: Blood Urea Nitrogen 11 mg/dL (6-20); Carbon Dioxide 18 mmol/L (22-29); Chloride 102 mmol/L (98-107); Creatinine Clr Calc Pharmacy 170.5982; Glomerular Filtration Rate 189.2 mL/min (90-130); Glucose 245 mg/dL (65-115); Magnesium 1.7 mg/dL (1.7-2.3); Osmolality Calculated 280 mOsm/kg (285-295); Sodium 131 mmol/L (136-145)
[2024-08-15] MEDS: magnesium citrate Btl 296 mL 150 ML PO (06:40)
--- NOTE | 2024-08-15 06:51 | PC.NURSE ---
Pt refused enema, stated he wanted to see if the lactulose worked first.
[2024-08-15 07:06] LABS: Glucose Point of Care 209 mg/dL (70-110)
--- NOTE | 2024-08-15 07:14 | PC.NURSE ---
This nurse spoke with Jovan, advised to dc insulin drip and dextrose. Stated to allow patient to eat and then we will do long acting and sliding scale insulin with hopes of discharge today.
[2024-08-15] MEDS: insulin glargine 100 units/1 mL 20 UNIT SUBCUT (07:42)
[2024-08-15 08:43] LABS: Glucose Point of Care 215 mg/dL (70-110)
--- NOTE | 2024-08-15 08:57 | P.DS_ITS ---
Discharge Providers Date of Admission: 08/15/24 00:00 Date of Discharge: August 15, 2024 Attending Provider at Admission: Montserrat Aldana MD Attending Provider at Discharge: Bam Barragan MD Primary Care Provider: Eva Ramírez NP Diagnoses at Discharge Discharge Diagnosis (1) Non-compliance: Status: Acute (2) Diabetes type 1, uncontrolled: Status: Acute (3) DKA (diabetic ketoacidosis): Status: Acute Qualifiers: Diabetes mellitus complication detail: without coma Diabetes mellitus type: type 1 Qualified Code(s): E10.10 - Type 1 diabetes mellitus with ketoacidosis without coma (4) Abdominal pain: Status: Acute (5) Diabetic neuropathy: Status: Acute (6) Constipation: Status: Acute Reason for Visit Reason for Visit: ABD PAIN Hospital Course Hospital Course Patient is a type I diabetic, who is used an insulin pump for quite a while. He stopped using his insulin pump yesterday and did not resume it. He was having some abdominal pain. He has had some constipation. In the emergency department, he was found to be in DKA. He was placed on DKA protocol after ap propriate hydration. No obvious infection was noted. He was given medication for constipation. The following day when I saw him his anion gap was 15. He had no nausea or vomiting. He had been given Lantus, and sliding scale and was eating. He had not yet had a bowel movement but his abdomen pain was improved. He requested to go home, and this was facilitated. I counseled him to return for any worsening abdominal pain, no bowel movement after the magnesium citrate, fever. He is going to initiate his insulin pump when he gets home. He has a plan to treat any hypoglycemia, which we discussed. Although not ideal, to go home prior to a bowel movement patient was adamant that he wanted to be discharged. Physical Exam Narrative: General Exam no distress Neck is supple Cardiovascular regular rate and rhythm Lungs clear Abdomen soft Extremities no cyanosis clubbing or edema Discharge Data Studies Completed and Pending Completed Studies During Hospitalization Category Date Time Status XR abdomen 1V* [id number] Stat Exams 08/14/24 19:05 Completed XR chest 1V portable [id number] Stat Exams 08/14/24 19:07 Completed Radiology Impressions Abdomen X-Ray 08/14/24 19:05 IMPRESSION: 1. Nonobstructed bowel gas pattern. 2. Increased fecal content in the colon. 3. There is a new 6 mm calcification in the abdomen just to the left of midline at the L2 level, this may represent a fecalith in the transverse colon. Chest X-Ray 08/14/24 19:07 IMPRESSION: Negative chest radiograph. Laboratory Results WBC 7.86 10^3/uL (3.29-11.43) 08/15/24 05:56 RBC 5.14 10^6/uL (3.85-5.65) 08/15/24 05:56 Hgb 14.50 g/dL (11.27-16.99) 08/15/24 05:56 Hct 41.9 % (37-53) 08/15/24 05:56 MCV 81.5 fl (82-101) L 08/15/24 05:56 MCH 28.2 pg (27-33) 08/15/24 05:56 MCHC 34.6 g/dL (30-55) 08/15/24 05:56 RDW 11.7 % (12.1-15.1) L 08/15/24 05:56 Plt Count 316 10^3/cmm (157-399) 08/15/24 05:56 MPV 8.4 fL (7.4-10.4) 08/15/24 05:56 Neut % (Auto) 58.8 % 08/15/24 05:56 Lymph % (Auto) 31.8 % 08/15/24 05:56 Thayer % (Auto) 8.0 % 08/15/24 05:56 Eos % (Auto) 0.8 % 08/15/24 05:56 Baso % (Auto) 0.5 % 08/15/24 05:56 Neut # (Auto) 4.62 10^3/uL (1.8-7.7) 08/15/24 05:56 Lymph # (Auto) 2.5 10^3/uL (0.8-4.8) 08/15/24 05:56 [place]ayer # (Auto) 0.6 10^3/uL (0.2-0.9) 08/15/24 05:56 Eos # (Auto) 0.1 10^3/uL (0.0-0.8) 08/15/24 05:56 Baso # (Auto) 0.0 10^3/uL (0.0-0.1) 08/15/24 05:56 Nucleated RBC % (auto) 0 % 08/15/24 05:56 Nucleated RBCs # 0.0 /100WBC 08/15/24 05:56 Specimen Type Arterial 08/14/24 20:07 Sample Site Radial, left 08/14/24 20:07 ABG pH 7.33 (7.35-7.45) L 08/14/24 20:07 ABG pCO2 23.4 mmHg (35-45) L 08/14/24 20:07 ABG pO2 113.0 mmHg (80.0-100.0) H 08/14/24 20:07 ABG HCO3 12.3 mmol/L (22-26) L 08/14/24 20:07 ABG O2 Saturation 98.7 08/14/24 20:07 ABG Base Excess -11.3 mmol/L (-2.0-2.0) L 08/14/24 20:07 Yang Test Pos 08/14/24 20:07 A-a O2 Gradient 0.6 mmHg (5-10) L 08/14/24 20:07 Hematocrit 51.7 % (42-52) 08/14/24 20:07 Hgb O2 Saturation 96.6 % (95-100) 08/14/24 20:07 Carboxyhemoglobin 1.2 %THgb (0.4-20.1) 08/14/24 20:07 Methemoglobin 1.0 % (0.4-1.5) 08/14/24 20:07 Total Hemoglobin 16.9 g/dL (14-18) 08/14/24 20:07 Sodium 133.0 mmol/L (131-143) 08/14/24 20:07 Potassium 3.8 mmol/L (3.5-5.0) 08/14/24 20:07 Glucose 319.0 mg/dL (70-115) H 08/14/24 20:07 Ionized Calcium 1.3 mmol/L (1.1-1.4) 08/14/24 20:07 O2 Delivery Device Nc 08/14/24 20:07 O2 Liters/Min 2.0 % 08/14/24 20:07 Cannon Pinion Adjuster ID [email or web address] 08/14/24 20:07 Sodium 131 mmol/L (136-145) L 08/15/24 05:56 Potassium 4.0 mmol/L (3.5-5.1) 08/15/24 05:56 Chloride 102 mmol/L (98-107) 08/15/24 05:56 Carbon Dioxide 18 mmol/L (22-29) L 08/15/24 05:56 Anion Gap 15.0 (5-19) 08/15/24 05:56 BUN 11 mg/dL (6-20) 08/15/24 05:56 Creatinine 0.5 mg/dL (0.7-1.2) L 08/15/24 05:56 GFR Calculation 189.2 mL/min (90-130) H 08/15/24 05:56 Glucose 245 mg/dL (65-115) H 08/15/24 05:56 POC Glucose 215 mg/dL (70-110) H 08/15/24 08:40 Calculated Osmolality 280 mOsm/kg (285-295) L 08/15/24 05:56 Calcium 9.0 mg/dL (8.5-10.5) 08/15/24 05:56 Magnesium 1.7 mg/dL (1.7-2.3) 08/15/24 05:56 Total Bilirubin 0.3 mg/dL (0.15-1.2) 08/14/24 19:14 AST 9 U/L (0-40) 08/14/24 19:14 ALT 13 U/L (0-41) 08/14/24 19:14 Alkaline Phosphatase 99 U/L (40-130) 08/14/24 19:14 Total Protein 7.7 g/dL (6.6-8.7) 08/14/24 19:14 Albumin 4.5 g/dL (3.5-5.2) 08/14/24 19:14 Globulin 3.2 g/dL (1.3-4.6) 08/14/24 19:14 Lipase 19 U/L (13-60) 08/14/24 19:14 TSH 0.95 uIU/mL (0.27-4.20) 08/14/24 23:14 Urine Color Yellow (Yellow) 08/14/24 19:44 Urine Appearance Clear (CLEAR) 08/14/24 19:44 Urine pH 5.0 (5-7) 08/14/24 19:44 Ur Specific [place] 1.048 (1.005-1.030) H 08/14/24 19:44 Urine Protein 1+ (Negative) A 08/14/24 19:44 Urine Glucose (UA) 3+ (Normal) H 08/14/24 19:44 Urine Ketones 4+ (Negative) 08/14/24 19:44 Urine Blood Negative (Negative) 08/14/24 19:44 Urine Nitrate Negative (Negative) 08/14/24 19:44 Urine Bilirubin Negative (Negative) 08/14/24 19:44 Urine Urobilinogen 1.0 mg/dL (Negative) 08/14/24 19:44 Ur Leukocyte Esterase Negative (Negative) 08/14/24 19:44 Urine RBC None /hpf (0-2) 08/14/24 19:44 Urine WBC None /hpf (0-5) 08/14/24 19:44 Ur Squamous Epith Cells 0-4 /hpf (0-5) H 08/14/24 19:44 Amorphous Sediment Not Reportable 08/14/24 19:44 Urine Bacteria None /hpf (NONE) 08/14/24 19:44 Coarse Granular Casts 0-4 /lpf H 08/14/24 19:44 Urine Mucus Trace /hpf 08/14/24 19:44 Urine Opiates Screen Negative ng/mL (Negative) 08/14/24 19:44 Ur Barbiturates Screen Negative ng/mL (Negative) 08/14/24 19:44 Ur Phencyclidine Scrn Negative ng/mL (Negative) 08/14/24 19:44 Ur Amphetamines Screen Negative ng/mL (Negative) 08/14/24 19:44 U Benzodiazepines Scrn Negative ng/mL (Negative) 08/14/24 19:44 Urine Cocaine Screen Negative ng/mL (Negative) 08/14/24 19:44 U Marijuana (THC) Screen Positive ng/mL (Negative) H 08/14/24 19:44 Serum Ketones Positive (Negative) H 08/14/24 19:14 Vitals Last Vital Signs Temp 98.0 F 08/14/24 19:02 Pulse 104 H 08/15/24 07:30 Resp 18 08/14/24 19:02 BP 154/98 08/15/24 07:30 Pulse Ox 96 08/15/24 07:30 O2 Del Method Room Air 08/14/24 23:40 Discharge Plan Discharge Patient Disposition: Home Condition: Stable Prescriptions: Continued gabapentin 100 mg capsule 200 mg PO TID Qty: 180 2RF polyethylene glycol 3350 [Miralax] 17 gram/dose powder 17 g PO DAILY Qty: 510 0RF Rx Instructions: Take 1-2 scoops daily for the next 3 months to keep stools soft omeprazole 20 mg capsule,delayed release(DR/EC) 20 mg PO DAILY Qty: 30 1RF dicyclomine 10 mg capsule 10 mg PO BID Qty: 60 0RF (DME) accu-check guide glucose test strips See Rx Instructions .Route .MEDSUPPLY Qty: 1 0RF Rx Instructions: As directed (DME) pen needle, diabetic 32 gauge x 5/32 needle See Rx Instructions .Route Qty: 200 1RF Rx Instructions: As directed insulin glargine [Basaglar KwikPen U-100 Insulin] 100 unit/mL (3 mL) insulin pen 20 unit SUBCUT BID Qty: 15 3RF atorvastatin 40 mg tablet 40 mg PO BEDTIME aspirin 81 mg tablet,delayed release (DR/EC) 81 mg PO DAILY carvedilol 3.125 mg tablet 3.125 mg PO BID Discharge Orders: Discharge Order (Routine); Ordered 08/15/24 Ordered By: Bam Barragan Referrals: Eva Ramírez NP [Primary Care Provider] - 08/28/24 8:30 am Discharge Diet: Diabetic Discharge Activity: Increase activity as tolerated Patient Instructions: Constipation - Adult, Diabetic Nephropathy, Diabetic Ket oacidosis (GEN), Type 2 Diabetes Management for Adults (GEN), Opioid Safety Activity Restrictions/Additional Instructions: Please resume your insulin pump today Follow-up with your director it as soon as possible Follow-up with primary care provider 3 to 5 days Follow consistent carb diet Discharge Attestations Time Spent in Discharge Care*: greater than 30 min Status at Discharge: Cognitive status at discharge: cognitively intact , Behavioral status at discharge: cooperative , Quality Metrics Clinical Quality Measures [ No reported AMI, CVA or VTE this stay] Coding Level of Care Code 76796 Diagnoses Non-compliance Z91.199 Diabetes type 1, uncontrolled DKA (diabetic ketoacidosis) E10.10 Diabetes mellitus complication detail: without coma Diabetes mellitus type: type 1 Abdominal pain R10.9 Diabetic neuropathy E11.40 Constipation K59.00 Time Spent (min) 35
[2024-08-15] MEDS: insulin lispro 100 unit/1 mL SUBCUT (09:00)
--- NOTE | 2024-08-15 09:06 | PHA.FALL ---
A Pharmacy Consult Was Conducted For John Lopez Due To: López Fall Scale Risk Level: No Fall Risk On 08/14/24 19:02 And A Medication Fall Risk Score Greater Than 10. The Recommendations Are As Follows
--- NOTE | 2024-08-15 09:06 | PC.PHAR ---
Pt states he is no longer taking the long acting insulin, only the short acting Basaglar u-100. Pt states no longer has his bottle of Nitro 0.4mg filled 07/05/24.
[2024-08-15 09:47] LABS: Glucose Point of Care 228 mg/dL (70-110)
[2024-08-15 11:11] LABS: Glucose Point of Care 189 mg/dL (70-110)
--- NOTE | 2024-08-15 11:57 | PC.NUTR ---
Interviewed Pt regarding his DM type 1 and diet. Discussed a few things, Pt did not want handouts or further education. Encouraged regular meals and always Protein w/his carbs. He lives in a retirement and said they get 3 meals but they aren't very good.
== END 2024-08-15 12:05 | disposition home or self-care (01) ==
LOC: ER 08-15 02:51 → ER IP 08-15 07:07
PROVIDERS: Admitting Provider Internal Medicine; Emergency Provider Emergency Medicine; Visit Provider Internal Medicine
DX: E10.10 Type 1 diabetes mellitus with ketoacidosis without coma (principal); E10.40 Type 1 diabetes mellitus with diabetic neuropathy, unspecified; K59.00 Constipation, unspecified; Z91.199 Patient's noncompliance with other medical treatment and regimen due to unspecified reason; Z59.01 Sheltered homelessness; Z79.4 Long term (current) use of insulin; J45.909 Unspecified asthma, uncomplicated
CPT/HCPCS: 36415; 36416; 36600; 71045; 74018; 80048; 80051; 80053; 80306; 81001; 82009; 82330; 82805; 82962; 83690; 83735; 84443; 85025; 96365; 96367; 96372; 96375; 96376; 99285; G0378; J0696; J1650; J1815; J2405; J3490; J7030

== ENCOUNTER 2024-08-23 10:40 | Observation (INO) | payer OTHER, MEDICAID, SELFPAY ==
[2024-08-23] VITALS (41 sets, daily range): BP systolic 99–145; BP diastolic 69–101; PULSE 103–140; RESP 16–34; TEMP 36.7–36.9; O2SAT 96–100; BMI 19.8
--- NOTE | 2024-08-23 10:50 | XR_ITS ---
WS: [id number] Portable AP upright chest, 08/23/2024 Clinical Data: sob Comparison: Portable chest, 08/14/2024 Findings: No nodules, masses or effusions are seen. The heart is normal. The pulmonary vascularity is not increased. No pneumonia or pneumothorax is seen. Monitor leads are on the chest wall. XR/XR chest 1V portable [id number] Impression: Negative chest.
--- NOTE | 2024-08-23 10:51 | ECG_ITS ---
[facility] Test Date: 2024-08-23 Pat Name: John Lopez Department: Room: Gender: Male Jitterbug Operator: : 1990 Requested By: Andrea Maier Order Number: [id number] Justice MD: Tisha Murguia M.D. Measurements Intervals [place] Rate: 140 P: 80 WI: 114 QRS: 98 QRSD: 86 T: 66 QT: 302 QTc: 462 Interpretive Statements SINUS TACHYCARDIA WITH SHORT WI INTERVAL, POSSIBLE ATRIAL FLUTTER BORDERLINE RIGHT AXIS DEVIATION [QRS AXIS > 90] MODERATE ST DEPRESSION [0.05+ mV ST DEPRESSION] Compared to ECG 07/04/2024 17:23:19 ST (T wave) deviation now present Sinus rhythm no longer present Electronically Signed On 08-23-2024 21:25:00 POLYETHYLENE BAG MACHINE OPERATOR by Tisha Murguia M.D. [email or web address]
[2024-08-23] MEDS: sodium chloride 0.9% 1,000 ML 999 ML IV (10:57)
[2024-08-23] MEDS: ondansetron 2 mg/ML SDV 2 mL 4 MG IVP ×2 (10:57→16:23)
--- NOTE | 2024-08-23 10:57 | ED_ITS ---
HPI - Chest Pain 2 General: Chief Complaint: Chest Pain Stated Complaint: Chest pain Time Seen by Provider: 08/23/24 10:42 Source: patient and EMS Mode of arrival: EMS Limitations: no limitations History of Present Illness: 34-year-old male with history of type 1 diabetes here from homeless [facility] with complaint of chest pain states has been having nausea vomiting over the last 2 days as well. Patient here is tachycardic hypotensive he had a history of DKA he is unsure what his blood sugar is. States his chest pain sharp in nature has a history reflux and feels the same he denies any fevers. Denies any worsening improving factors Associated symptoms: Reports abdominal pain, nausea and vomiting; Deny dyspnea or fever(s) Related Data Home Medications Medication Instructions Recorded Confirmed aspirin 81 mg tablet,delayed 81 mg PO DAILY 08/15/24 08/15/24 release atorvastatin 40 mg tablet 40 mg PO BEDTIME 08/15/24 08/15/24 carvedilol 3.125 mg tablet 3.125 mg PO BID 08/15/24 08/15/24 Previous Rx's Medication Instructions Recorded insulin glargine 100 unit/mL (3 20 unit (0.2 mL) SUBCUT BID #15 mL 06/09/24 mL) subcutaneous pen (Basaglar KwikPen U-100 Insulin) pen needle, diabetic 32 gauge x #200 ea 07/04/24 accu-check guide glucose test #1 ea 08/09/24 strips dicyclomine 10 mg capsule 10 mg PO BID #60 caps 08/09/24 gabapentin 100 mg capsule 200 mg (2 x 100 mg) PO TID #180 08/09/24 caps omeprazole 20 mg capsule,delayed 20 mg PO DAILY #30 caps 08/09/24 release polyethylene glycol 3350 17 17 g PO DAILY #510 grams 08/09/24 gram/dose oral powder (Miralax) Allergies Allergy/AdvReac Type Severity Reaction Status Date / Time No Known Allergies Allergy Verified 08/15/24 07:18 Review of Systems 2 Const: Denies: fever(s), chills, body aches or change in appetite Eyes: Denies: blurry vision or eye discomfort ENMT: Denies: throat pain or dental pain Card: Reports: chest pain Resp: Denies: dyspnea GI: Reports: abdominal pain, nausea and vomiting; Denies: diarrhea : Denies: dysuria Musc: Denies: neck pain or back pain Skin/Breast: Denies: rash Neuro: Denies: headache(s) PFSH ED 2 PFSH: Medical History Abdominal pain Diabetic neuropathy Diabetes type 1, uncontrolled Asthma Diabetes Surgical History No pertinent past surgical history Family History Father CAD (coronary artery disease) Other Hypertension Social History Smoking and tobacco/nicotine status: current every day tobacco/nicotine user Alcohol intake: never Substance/Drug Use: current Physical Exam 2 Const: COMMON NORMALS: patient oriented x3 HENMT: COMMON NORMALS: normocephalic and atraumatic HEAD & SCALP: n ormocephalic and atraumatic Eye: COMMON NORMALS: conjunctivae normal CONJUNCTIVA: Yes conjunctivae normal Neck/C-Spine: COMMON NORMALS: full ROM and supple Chest: COMMONS NORMALS: normal inspection of the chest Resp: COMMON NORMALS: normal respiratory effort, No retractions, No use of accessory muscles and clear to auscultation bilaterally AUSCULTATION: clear to auscultation bilaterally Cardio: COMMON NORMALS: regular rhythm and No murmurs present (Cardio) R ATE: tachycardic RHYTHM: regular rhythm GI: COMMON NORMALS: Normal to inspection, nondistended, normoactive bowel sounds present, Soft to palpation, non-tender and no masses PALPATION: Yes Soft to palpation Extremity: COMMON NORMALS: normal to inspection and full ROM Neuro: COMMON NORMALS: patient oriented x3, moves all extremities and no focal motor deficits Psych: COMMON NORMALS: mental status grossly normal, Normal thought process present and cooperative THOUGHT PROCESS: Normal thought process present Skin: COMMON NORMALS: no rashes or lesions noted and no wounds GENERAL SKIN EXAM: no rashes or lesions noted Course 2 Vital Signs: Vital signs: Vital Signs Temperature 98.1 F 08/23/24 10:41 Pulse Rate 114 H 08/23/24 11:38 Respiratory Rate 18 08/23/24 10:41 Blood Pressure 110/69 08/23/24 11:38 Pulse Oximetry 99 08/23/24 11:38 Oxygen Delivery Me thod Room Air 08/23/24 10:41 MDM - Chest Pain Medical Decision Making Patient presents here tachycardic is in DKA his heart rate here is improving after IV fluids does have an anion gap positive ketones admit we will start him on insulin drip spoke to Dr. Swan will admit to ICU Medical Records I reviewed the patient's medical records. Lab Data I reviewed the patient's lab results. 08/23/24 10:49 08/23/24 10:49 Radiology Impressions Chest X-Ray 08/23/24 10:50 Impression: Negative chest. Laboratory Results WBC 21.80 10^3/uL (3.29-11.43) H 08/23/24 10:49 RBC 6.34 10^6/uL (3.85-5.65) H 08/23/24 10:49 Hgb 17.70 g/dL (11.27-16.99) H 08/23/24 10:49 Hct 53.1 % (37-53) H 08/23/24 10:49 MCV 83.8 fl (82-101) 08/23/24 10:49 MCH 27.9 pg (27-33) 08/23/24 10:49 MCHC 33.3 g/dL (30-55) 08/23/24 10:49 RDW 11.9 % (12.1-15.1) L 08/23/24 10:49 Plt Count 537 10^3/cmm (157-399) H 08/23/24 10:49 MPV 9.2 fL (7.4-10.4) 08/23/24 10:49 Neut % (Auto) 83.1 % 08/23/24 10:49 Lymph % (Auto) 11.7 % 08/23/24 10:49 Jackson % (Auto) 4.5 % 08/23/24 10:49 Eos % (Auto) 0.0 % 08/23/24 10:49 Baso % (Auto) 0.3 % 08/23/24 10:49 Neut # (Auto) 18.09 10^3/uL (1.8-7.7) H 08/23/24 10:49 Lymph # (Auto) 2.6 10^3/uL (0.8-4.8) 08/23/24 10:49 Jackson # (Auto) 1.0 10^3/uL (0.2-0.9) H 08/23/24 10:49 Eos # (Auto) 0.0 10^3/uL (0.0-0.8) 08/23/24 10:49 Baso # (Auto) 0.1 10^3/uL (0.0-0.1) 08/23/24 10:49 Nucleated RBC % (auto) 0 % 08/23/24 10:49 Nucleated RBCs # 0.0 /100WBC 08/23/24 10:49 Specimen Type Arterial 08/23/24 10:53 Sample Site Radial, left 08/23/24 10:53 ABG pH 7.24 (7.35-7.45) L 08/23/24 10:53 ABG pCO2 16.1 mmHg (35-45) L* 08/23/24 10:53 ABG pO2 118.0 mmHg (80.0-100.0) H 08/23/24 10:53 ABG PO2/FiO2 Ratio 561 08/23/24 10:53 ABG HCO3 6.9 mmol/L (22-26) L 08/23/24 10:53 ABG Base Excess -17.8 mmol/L (-2.0-2.0) L 08/23/24 10:53 Yang Test Pos 08/23/24 10:53 Hematocrit 46.8 % (42-52) 08/23/24 10:53 Hgb O2 Saturation 96.8 % (95-100) 08/23/24 10:53 Carboxyhemoglobin 0.6 %THgb (0.4-20.1) 08/23/24 10:53 Methemoglobin 1.3 % (0.4-1.5) 08/23/24 10:53 Total Hemoglobin 15.3 g/dL (14-18) 08/23/24 10:53 O2 Delivery Device Room air 08/23/24 10:53 FiO2 21.0 % 08/23/24 10:53 School Treasurer ID [place] 08/23/24 10:53 Sodium 127 mmol/L (136-145) L 08/23/24 10:49 Potassium 4.3 mmol/L (3.5-5.1) 08/23/24 10:49 Chloride 86 mmol/L (98-107) L 08/23/24 10:49 Carbon Dioxide 11 mmol/L (22-29) L 08/23/24 10:49 Anion Gap 34.3 (5-19) H 08/23/24 10:49 BUN 21 mg/dL (6-20) H 08/23/24 10:49 Creatinine 0.8 mg/dL (0.7-1.2) 08/23/24 10:49 GFR Calculation 110.0 mL/min (90-130) 08/23/24 10:49 Glucose 337 mg/dL (65-115) H 08/23/24 10:49 Calculated Osmolality 280 mOsm/kg (285-295) L 08/23/24 10:49 Calcium 10.3 mg/dL (8.5-10.5) 08/23/24 10:49 Phosphorus 4.5 mg/dL (2.5-4.5) 08/23/24 10:49 Magnesium 1.8 mg/dL (1.7-2.3) 08/23/24 10:49 Total Bilirubin 0.6 mg/dL (0.15-1.2) 08/23/24 10:49 AST 11 U/L (0-40) 08/23/24 10:49 ALT 15 U/L (0-41) 08/23/24 10:49 Alkaline Phosphatase 92 U/L (40-130) 08/23/24 10:49 Total Protein 8.3 g/dL (6.6-8.7) 08/23/24 10:49 Albumin 5.1 g/dL (3.5-5.2) 08/23/24 10:49 Globulin 3.2 g/dL (1.3-4.6) 08/23/24 10:49 Ethyl Alcohol < 10 mg/dL (0-10) 08/23/24 10:49 Serum Ketones Positive (Negative) H 08/23/24 10:49 All radiology interpretation(s) finalized by discharge EKG Data EKG 1: I personally reviewed and interpreted this EKG as follows: EKG interpretation date: 08/23/24 EKG interpretation time: 10:45 Interpretation: sinus tach hr [address] elevation qrs 86 qtc 384 Critical Care Time 2 Critical Care Time: Critical Care Time: Yes Total Critical Care Time: 35 Attestation: The high probability of a clinically significant, sudden or life threatening deterioration of the patient's endocrine system(s) required my full and direct attention, intervention and personal management. The critical care time is as shown. This time is in addition to time spent performing any reported procedures but includes the following: [x] Data and vital sign review and interpretation [x] Patient assessment, examination and intervention [x] Documentation [x] Medication orders and management Discharge Plan Discharge Patient Disposition: Admitted As Inpatient Clinical Impression: DKA, type 1 Condition: Stable Prescriptions: No Action gabapentin 100 mg capsule 200 mg PO TID Qty: 180 2RF polyethylene glycol 3350 [Miralax] 17 gram/dose powder 17 g PO DAILY Qty: 510 0RF Rx Instructions: Take 1-2 scoops daily for the next 3 months to keep stools soft omeprazole 20 mg capsule,delayed release(DR/EC) 20 mg PO DAILY Qty: 30 1RF dicyclomine 10 mg capsule 10 mg PO BID Qty: 60 0RF (DME) accu-check guide glucose test strips See Rx Instructions .Route .MEDSUPPLY Qty: 1 0RF Rx Instructions: As directed (DME) pen needle, diabetic 32 gauge x 5/32 needle See Rx Instructions .Route Qty: 200 1RF Rx Instructions: As directed insulin glargine [Basaglar KwikPen U-100 Insulin] 100 unit/mL (3 mL) insulin pen 20 unit SUBCUT BID Qty: 15 3RF atorvastatin 40 mg tablet 40 mg PO BEDTIME aspirin 81 mg tablet,delayed release (DR/EC) 81 mg PO DAILY carvedilol 3.125 mg tablet 3.125 mg PO BID Referrals: Eva Ramírez NP [Primary Care Provider] - Coding Level of Care Code ED Invoice Control Clerk for Ger Bridges
[2024-08-23 11:02] LABS: Basophils # 0.1 10^3/uL (0.0-0.1); Basophils % 0.3 %; Hematocrit 53.1 % (37-53); Lymphocytes # 2.6 10^3/uL (0.8-4.8); Lymphocytes % 11.7 %; Mean Corpuscular HGB Conc 33.3 g/dL (30-55); Mean Corpuscular Hemoglobin 27.9 pg (27-33); Mean Corpuscular Volume 83.8 fl (82-101); Mean Platelet Volume 9.2 fL (7.4-10.4); Monocytes % 4.5 %; Neutrophils # 18.09 10^3/uL (1.8-7.7); Neutrophils % 83.1 %; Nucleated Red Blood Cells % 0 %; Platelet Count 537 10^3/cmm (157-399); Red Blood Count 6.34 10^6/uL (3.85-5.65); Red Cell Distribution Width 11.9 % (12.1-15.1)
[2024-08-23 11:04] LABS: ABG PH Result 7.24 (7.35-7.45); Arterial Blood Gas Hematocrit 46.8 % (42-52); Base Excess ABG -17.8 mmol/L (-2.0-2.0); Blood Gas Allen Test Pos; Blood Gas Operator Identificat WALCI; Blood Gas Sample Site Radial, left; Blood Gas Sample Type Arterial; Carboxyhemoglobin 0.6 %THgb (0.4-20.1); HCO3 ABG 6.9 mmol/L (22-26); HGB O2 Sat 96.8 % (95-100); Methemoglobin 1.3 % (0.4-1.5); Oxygen Device ROOM AIR; PO2 FiO2 Ratio Arterial Blood 561; Total Hemoglobin 15.3 g/dL (14-18)
[2024-08-23 11:05] LABS: ABG PCO2 16.1 mmHg (35-45)
[2024-08-23 11:15] LABS: Alanine Aminotransferase 15 U/L (0-41); Albumin Level 5.1 g/dL (3.5-5.2); Alkaline Phosphatase 92 U/L (40-130); Anion Gap 34.3 (5-19); Aspartate Amino Transferase 11 U/L (0-40); Blood Urea Nitrogen 21 mg/dL (6-20); Calcium 10.3 mg/dL (8.5-10.5); Carbon Dioxide 11 mmol/L (22-29); Chloride 86 mmol/L (98-107); Creatinine Clr Calc Pharmacy 106.6239; Globulin 3.2 g/dL (1.3-4.6); Glucose 337 mg/dL (65-115); Magnesium 1.8 mg/dL (1.7-2.3); Osmolality Calculated 280 mOsm/kg (285-295); Phosphorus 4.5 mg/dL (2.5-4.5); Potassium 4.3 mmol/L (3.5-5.1); Sodium 127 mmol/L (136-145); Total Bilirubin 0.6 mg/dL (0.15-1.2); Total Protein 8.3 g/dL (6.6-8.7)
[2024-08-23 11:17] LABS: Alcohol Level < 10 mg/dL (0-10)
[2024-08-23 11:19] LABS: Ketone (Acetest) Serum Positive (Negative)
--- NOTE | 2024-08-23 11:37 | PC.NURSE ---
PT REFUSING URINE SAMPLE, PT REFUSING TO BE CATHED FOR URINE. DR. DALTON PENA.
--- NOTE | 2024-08-23 11:58 | P.HP_ITS ---
Providers/Chief Complaint 2 Admitting Physician: Bam Barragan MD Primary Care Provider: Eva Ramírez NP Chief Complaint: Chest pain History of Present Illness John Lopez is a 34 year old male who resides at [facility] who presents with nausea vomiting for the last 2 days. He has been worried to take his insulin through his pump for the last 2 days as he is run out of testing strips. Therefore he has not had any significant insulin in the last 2 days. He reports he is vomited at least 6 times in the last 12 hours. No hematemesis, diarrhea, blood in stool or black or tarry stool. He reports he has significantly become dehydrated. He reports significant heartburn which she has had for quite some time. He denies any fevers. Review of Systems 2 General: Reports: 10 or more systems reviewed and unremarkable except in HPI and below Medications/Allergies Home Medications Medication Instructions Recorded Confirmed Last Taken Type insulin glargine 100 unit/mL (3 20 unit (0.2 mL) SUBCUT BID #15 mL 06/09/24 08/23/24 08/14/24 Rx mL) subcutaneous pen (Basaglar KwikPen U-100 Insulin) pen needle, diabetic 32 gauge x #200 ea 07/04/24 08/23/24 Unknown Rx accu-check guide glucose test #1 ea 08/09/24 08/23/24 Unknown Rx strips dicyclomine 10 mg capsule 10 mg PO BID #60 caps 08/09/24 08/23/24 08/14/24 Rx gabapentin 100 mg capsule 200 mg (2 x 100 mg) PO TID #180 08/09/24 08/23/24 08/14/24 Rx caps omeprazole 20 mg capsule,delayed 20 mg PO DAILY #30 caps 08/09/24 08/23/24 08/14/24 Rx release polyethylene glycol 3350 17 17 g PO DAILY #510 grams 08/09/24 08/23/24 08/14/24 Rx gram/dose oral powder (Miralax) aspirin 81 mg tablet,delayed 81 mg PO DAILY 08/15/24 08/23/24 08/14/24 History release atorvastatin 40 mg tablet 40 mg PO BEDTIME 08/15/24 08/23/24 08/14/24 History carvedilol 3.125 mg tablet 3.125 mg PO BID 12/06/2908/23/24 08/14/24 History insulin glargine 100 unit/mL (3 20 unit SUBCUT BID 08/23/24 08/23/24 Unknown History mL) subcutaneous pen (Lantus Solostar U-100 Insulin) nitroglycerin 0.4 mg sublingual See Rx Instructions .Route .COMPLEX 08/23/24 08/23/24 Unknown History tablet ondansetron 4 mg disintegrating 4 mg PO Q8H PRN Nausea And Vomiting 08/23/24 08/23/24 08/23/24 History tablet Allergies Allergy/AdvReac Type Severity Reaction Status Date / Time No Known Allergies Allergy Verified 08/15/24 07:18 PFSH Acute 2 PFSH: Medical History Abdominal pain Diabetic neuropathy Diabetes type 1, uncontrolled Asthma Diabetes Surgical History No pertinent past surgical history Family History Father CAD (coronary artery disease) Other Hypertension Social History Smoking and tobacco/nicotine status: current every day tobacco/nicotine user Alcohol intake: never Substance/Drug Use: current Vitals/I&O/Wt Last Vital Signs Temp 98.1 F 08/23/24 10:41 Pulse 114 H 08/23/24 11:38 Resp 18 08/23/24 10:41 BP 110/69 08/23/24 11:38 Pulse Ox 99 08/23/24 11:38 O2 Del Method Room Air 08/23/24 10:41 08/22/24 08/23/24 08/23/24 22:59 06:59 14:59 Intake Total 50 / 50 Balance 50 / 50 Weight last 48 hrs Weight 53.977 kg Physical Exam 2 Narrative: General Exam appears nauseated. Tachycardic. Appears uncomfortable. HEENT: Atraumatic normocephalic. Mucous membranes are dry. Neck is supple Cardiovascular regular, tachycardic, no murmur Lungs clear no wheezing or crackles Abdomen is soft but tenderness is present mainly in the epigastric area Extremities no cyanosis clubbing or edema Skin no rash Neuro no obvious focal deficits deferred Data 08/23/24 10:49 08/23/24 10:49 Other Labs: ABG demonstrates pH 7.24, pCO2 16, pO2 118, on room air LFTs are normal Magnesium 1.8 Phosphorus 4.5 Calcium and albumin normal Urinalysis pending Alcohol level less than 10 Serum ketones positive EKG demonstrates sinus tachycardia, right axis deviation, nonspecific ST-T wave changes A&P Assessment and plan (1) DKA, type 1: Patient presents with DKA He has been given 2 L of bolus of isotonic fluids Insulin/DKA protocol has been initiated Admission to ICU, at this point appropriate for observation care as acidosis may resolve quickly Will need supplies for his glucose monitor upon discharge (2) Leukocytosis: No evidence of infection as of yet Await urinalysis (3) GERD (gastroesophageal reflux disease): Patient has been vomiting quite a bit Start Protonix IV Nausea medicine as needed Reports he has underlying reflux Avoid anti-inflammatories Plan More social situation Other medical problems as outlined in past medical history Full code Lovenox for DVT prophylaxis Attestations 2 Medical Necessity Statement*: Will require greater than 2 midnight stay for evaluation and treatment of DKA regarding correction of electrolytes, correction of acidosis, etc. in the ICU setting. Critical Care Time: The high probability of a clinically significant, sudden or life threatening deterioration of the patient's [endocrine, metabolic] system(s) required my full and direct attention, intervention and personal management. The critical care time is as shown. This time is in addition to time spent performing any reported procedures but includes the following: [x] Data and vital sign review and interpretation [x] Patient assessment, examination and intervention [x] Documentation [x] Medication orders and management Critical Care Time (min): 57 Coding Level of Care Code Critical Care >/= 30 minutes Critical care time (in minutes): 57 The high probability of a clinically significant, sudden or life threatening deterioration, as referenced in this documentation, required my full and direct attention, intervention and personal management. The critical care time shown is in addition to time spent performing any reported separately billable procedures and includes the following: [x] Data and vital sign review and interpretation [x ] Patient assessment, examination and intervention [x] Medication orders and management [x] Patient/Family updates as able [x] Care Coordination and Documentation. Diagnoses DKA, type 1 E10.10 Leukocytosis D72.829 GERD (gastroesophageal reflux disease) K21.9
[2024-08-23 12:58] LABS: Glucose Point of Care 321 mg/dL (70-110)
[2024-08-23 13:12] LABS: Glucose Point of Care 330 mg/dL (70-110)
[2024-08-23] MEDS: INSULIN REGULAR IN 0.9 % NACL 100 UNIT/100 ML BAG IV (13:15)
[2024-08-23] MEDS: sodium chloride 0.9% 1,000 ML 150 ML IV (14:15)
[2024-08-23] MEDS: enoxaparin 40 mg/0.4 mL Syringe SUBCUT (14:16)
[2024-08-23] MEDS: pantoprazole 40 mg SDV IVP (14:16)
[2024-08-23 14:41] LABS: Anion Gap 30.8 (5-19); Blood Urea Nitrogen 17 mg/dL (6-20); Calcium 8.4 mg/dL (8.5-10.5); Chloride 94 mmol/L (98-107); Creatinine Clr Calc Pharmacy 170.5982; Glomerular Filtration Rate 189.2 mL/min (90-130); Glucose 280 mg/dL (65-115); Osmolality Calculated 282 mOsm/kg (285-295); Potassium 3.8 mmol/L (3.5-5.1); Sodium 130 mmol/L (136-145)
[2024-08-23 14:45] LABS: Carbon Dioxide 9 mmol/L (22-29)
[2024-08-23] MEDS: D5-NS 0.45% + KCL 20 mEq 20 MEQ/1,000 ML BAG 125 MEQ IV ×2 (15:20→23:38)
[2024-08-23 15:25] LABS: Glucose Point of Care 184 mg/dL (70-110)
--- NOTE | 2024-08-23 16:15 | ECG_ITS ---
[facility] Test Date: 2024-08-23 Pat Name: John Lopez Department: Room: [facility] Gender: Male Cad Designer: : 1990 Requested By: Bam Bishop Order Number: [id number] Justice MD: Tisha Murguia M.D. Measurements Intervals [place] Rate: 115 P: 73 CO: 121 QRS: 93 QRSD: 92 T: 30 QT: 370 QTc: 513 Interpretive Statements SINUS TACHYCARDIA BORDERLINE RIGHT AXIS DEVIATION [QRS AXIS > 90] NONSPECIFIC ST & T-WAVE ABNORMALITY ABNORMAL RHYTHM ECG Compared to ECG 08/23/2024 10:45:06 T-wave abnormality now present ST (T wave) deviation no longer present Electronically Signed On 08-23-2024 21:27:13 BANKING CENTER MANAGER by Tisha Murguia M.D. [email or web address]
--- NOTE | 2024-08-23 16:25 | PC.NURSE ---
Upon entering patient's room, he complains of chest pain holding his chest with his hand. Mr. Lopez states that, It feels like a lot if pressure, like someone is squeezing my heart . This nurse ask if he has experienced chest pain like this before, or if he felt like this could be gastric reflex due to intermittent N/V. Patient stated, No, I have not felt pressure like this before and it's uncomfortable. Mr. Lopez rates his pain a 7 on a pain scale 1-10, denies shortness of breath, nausea, or the chest pain radiating anywhere. This nurse notified Dr. Barragan, verbal orders to obtain EKG, troponin, and administer pain mediation- see mar. See documented vital signs.
[2024-08-23 16:33] LABS: Glucose Point of Care 248 mg/dL (70-110)
[2024-08-23] MEDS: HYDROmorphone 1 mg/mL INJ 1 mL 0.4 MG IVP (16:41)
[2024-08-23 17:01] LABS: Glucose Point of Care 197 mg/dL (70-110)
[2024-08-23 17:15] LABS: Troponin(5th) Baseline < 6 ng/L (0-15)
[2024-08-23 17:16] LABS: Anion Gap 21.5 (5-19); Blood Urea Nitrogen 17 mg/dL (6-20); Calcium 8.7 mg/dL (8.5-10.5); Carbon Dioxide 12 mmol/L (22-29); Chloride 102 mmol/L (98-107); Creatinine Clr Calc Pharmacy 170.5982; Glomerular Filtration Rate 189.2 mL/min (90-130); Glucose 202 mg/dL (65-115); Osmolality Calculated 281 mOsm/kg (285-295); Potassium 3.5 mmol/L (3.5-5.1); Sodium 132 mmol/L (136-145)
[2024-08-23 18:23] LABS: Glucose Point of Care 222 mg/dL (70-110)
[2024-08-23 19:00] LABS: Glucose Point of Care 205 mg/dL (70-110)
[2024-08-23 19:36] LABS: Troponin 5 2HR 7.34 ng/L (0-15); Troponin 5 2HR Delta 1.34001 ABS# (0-10)
[2024-08-23 19:57] LABS: Glucose Point of Care 207 mg/dL (70-110)
[2024-08-23 20:56] LABS: Glucose Point of Care 218 mg/dL (70-110)
[2024-08-23] MEDS: gabapentin 100 mg Capsule 200 MG PO (21:38)
[2024-08-23 21:41] LABS: Anion Gap 19.1 (5-19); Blood Urea Nitrogen 15 mg/dL (6-20); Calcium 8.7 mg/dL (8.5-10.5); Carbon Dioxide 17 mmol/L (22-29); Chloride 103 mmol/L (98-107); Creatinine Clr Calc Pharmacy 142.1651; Glomerular Filtration Rate 153.3 mL/min (90-130); Glucose 235 mg/dL (65-115); Osmolality Calculated 286 mOsm/kg (285-295); Potassium 5.1 mmol/L (3.5-5.1); Sodium 134 mmol/L (136-145)
--- NOTE | 2024-08-23 22:00 | PC.NURSE ---
Restart home gabapentin: Patient was complaining of pain/tingling in his feet and had requested to get his home dose of gabapentin (200mg PO TID). Dr. May gave telephone orders to go ahead and start this.
[2024-08-23 22:05] LABS: Glucose Point of Care 301 mg/dL (70-110)
[2024-08-23 23:03] LABS: Glucose Point of Care 255 mg/dL (70-110)
[2024-08-23 23:08] LABS: Troponin 5 6HR 6.82 ng/L (0-15); Troponin 5 6HR Delta 0.82001 ng/L (0-12)
[2024-08-24] VITALS (43 sets, daily range): BP systolic 116–176; BP diastolic 81–116; PULSE 96–132; RESP 15–25; TEMP 36.7–36.9; O2SAT 93–99; BMI 18.5
[2024-08-24 00:04] LABS: Glucose Point of Care 179 mg/dL (70-110)
[2024-08-24] MEDS: pantoprazole 40 mg SDV IVP (00:54)
[2024-08-24 01:03] LABS: Glucose Point of Care 187 mg/dL (70-110)
[2024-08-24 01:48] LABS: Anion Gap 15.5 (5-19); Blood Urea Nitrogen 15 mg/dL (6-20); Calcium 8.7 mg/dL (8.5-10.5); Carbon Dioxide 18 mmol/L (22-29); Chloride 102 mmol/L (98-107); Creatinine Clr Calc Pharmacy 213.2477; Glomerular Filtration Rate 244.8 mL/min (90-130); Glucose 201 mg/dL (65-115); Osmolality Calculated 281 mOsm/kg (285-295); Potassium 3.5 mmol/L (3.5-5.1); Sodium 132 mmol/L (136-145)
[2024-08-24 02:00] LABS: Glucose Point of Care 203 mg/dL (70-110)
[2024-08-24 02:52] LABS: Glucose Point of Care 191 mg/dL (70-110)
[2024-08-24] MEDS: acetaminophen 325 mg Tablet 650 MG PO (03:25)
[2024-08-24 04:02] LABS: Glucose Point of Care 221 mg/dL (70-110)
[2024-08-24 04:31] LABS: Basophils # 0.1 10^3/uL (0.0-0.1); Basophils % 0.4 %; Eosinophils % 0.3 %; Hematocrit 40.2 % (37-53); Lymphocytes # 3.1 10^3/uL (0.8-4.8); Lymphocytes % 23.8 %; Mean Corpuscular HGB Conc 34.3 g/dL (30-55); Mean Corpuscular Hemoglobin 28.2 pg (27-33); Mean Corpuscular Volume 82.2 fl (82-101); Monocytes # 1.2 10^3/uL (0.2-0.9); Monocytes % 8.9 %; Neutrophils # 8.76 10^3/uL (1.8-7.7); Neutrophils % 66.4 %; Nucleated Red Blood Cells % 0 %; Platelet Count 365 10^3/cmm (157-399); Red Blood Count 4.89 10^6/uL (3.85-5.65); Red Cell Distribution Width 11.9 % (12.1-15.1); White Blood Count 13.19 10^3/uL (3.29-11.43)
[2024-08-24 04:54] LABS: Alanine Aminotransferase 8 U/L (0-41); Albumin Level 3.5 g/dL (3.5-5.2); Alkaline Phosphatase 63 U/L (40-130); Anion Gap 11.3 (5-19); Aspartate Amino Transferase 8 U/L (0-40); Blood Urea Nitrogen 14 mg/dL (6-20); Calcium 8.8 mg/dL (8.5-10.5); Carbon Dioxide 20 mmol/L (22-29); Chloride 103 mmol/L (98-107); Creatinine Clr Calc Pharmacy 170.5982; Globulin 2.3 g/dL (1.3-4.6); Glomerular Filtration Rate 189.2 mL/min (90-130); Glucose 210 mg/dL (65-115); Magnesium 1.7 mg/dL (1.7-2.3); Osmolality Calculated 279 mOsm/kg (285-295); Potassium 3.3 mmol/L (3.5-5.1); Sodium 131 mmol/L (136-145); Total Bilirubin 0.4 mg/dL (0.15-1.2); Total Protein 5.8 g/dL (6.6-8.7)
[2024-08-24 05:28] LABS: Glucose Point of Care 204 mg/dL (70-110)
[2024-08-24] MEDS: potassium chloride ER 20 mEq Tablet 40 MEQ PO (05:30)
[2024-08-24] MEDS: insulin glargine 100 units/1 mL 20 UNIT SUBCUT (05:30)
[2024-08-24 06:33] LABS: Glucose Point of Care 253 mg/dL (70-110)
[2024-08-24 07:22] LABS: Glucose Point of Care 319 mg/dL (70-110)
[2024-08-24] MEDS: insulin lispro 100 unit/1 mL SUBCUT (08:00)
[2024-08-24] MEDS: sucralfate 1 gm/10 mL Oral Liq UDC PO (08:01)
[2024-08-24] MEDS: gabapentin 100 mg Capsule 200 MG PO (08:01)
[2024-08-24 09:15] LABS: Anion Gap 18.9 (5-19); Blood Urea Nitrogen 13 mg/dL (6-20); Calcium 8.9 mg/dL (8.5-10.5); Carbon Dioxide 17 mmol/L (22-29); Chloride 99 mmol/L (98-107); Creatinine Clr Calc Pharmacy 184.1146; Glomerular Filtration Rate 244.8 mL/min (90-130); Glucose 311 mg/dL (65-115); Osmolality Calculated 284 mOsm/kg (285-295); Potassium 3.9 mmol/L (3.5-5.1); Sodium 131 mmol/L (136-145)
--- NOTE | 2024-08-24 09:16 | PM.DCS ---
Discharge Providers Date of Admission: 08/23/24 11:55 Date of Discharge: August 24, 2024 Attending Provider at Admission: Bam Barragan MD Attending Provider at Discharge: Bam Barragan MD Primary Care Provider: Eva Ramírez NP Diagnoses at Discharge Discharge Diagnosis (1) DKA, type 1: Status: Acute (2) Leukocytosis: Status: Acute (3) GERD (gastroesophageal reflux disease): Status: Acute Reason for Visit Reason for Visit: Chest pain Hospital Course Hospital Course Patient presented to the emergency department on August 23 with markedly elevated sugar, abdominal pain, vomiting. His glucose monitor had broken, he had run out of strips, and he stopped his insulin from his pump 2 days ago. He was in DKA. He was given significant fluids, and a DKA protocol was initiated. With this he had significant improvement in his anion gap, and gap resolved. Long-acting insulin was started and he was initiated on oral intake which he tolerated well. With the gap closed him doing well it was thought he could discharge to home. Carafate was added for some reflux symptoms. He should follow-up with his skin washer in 7 to 10 days primary care provider 3 to 5 days. Glucose monitor, test strips, will need to be filled prior to his discharge. He reports he has all other supplies to restart insulin pump at home. Physical Exam Narrative: General Exam no distress Neck is supple Cardiovascular regular rate rhythm Lungs clear Abdomen soft Extremities no sinus clubbing edema Discharge Data Studies Completed and Pending Completed Studies During Hospitalization Category Date Time Status XR chest 1V portable [id number] Stat Exams 08/23/24 10:50 Completed Pending at discharge Category Date Time Status BMP [Basic Metabolic Panel] Q4H Lab 08/24/24 08:34 Results Blood Culture Stat Lab 08/23/24 12:15 Results Urinalysis Stat Lab 08/23/24 11:06 Ordered Radiology Impressions Chest X-Ray 08/23/24 10:50 Impression: Negative chest. Laboratory Results WBC 13.19 10^3/uL (3.29-11.43) H 08/24/24 03:27 RBC 4.89 10^6/uL (3.85-5.65) 08/24/24 03:27 Hgb 13.80 g/dL (11.27-16.99) 08/24/24 03:27 Hct 40.2 % (37-53) 08/24/24 03:27 MCV 82.2 fl (82-101) 08/24/24 03:27 MCH 28.2 pg (27-33) 08/24/24 03:27 MCHC 34.3 g/dL (30-55) 08/24/24 03:27 RDW 11.9 % (12.1-15.1) L 08/24/24 03:27 Plt Count 365 10^3/cmm (157-399) D 08/24/24 03:27 MPV 9.0 fL (7.4-10.4) 08/24/24 03:27 Neut % (Auto) 66.4 % 08/24/24 03:27 Lymph % (Auto) 23.8 % 08/24/24 03:27 [place] % (Auto) 8.9 % 08/24/24 03:27 Eos % (Auto) 0.3 % 08/24/24 03:27 Baso % (Auto) 0.4 % 08/24/24 03:27 Neut # (Auto) 8.76 10^3/uL (1.8-7.7) H 08/24/24 03:27 Lymph # (Auto) 3.1 10^3/uL (0.8-4.8) 08/24/24 03:27 [place] # (Auto) 1.2 10^3/uL (0.2-0.9) H 08/24/24 03:27 Eos # (Auto) 0.0 10^3/uL (0.0-0.8) 08/24/24 03:27 Baso # (Auto) 0.1 10^3/uL (0.0-0.1) 08/24/24 03:27 Nucleated RBC % (auto) 0 % 08/24/24 03:27 Nucleated RBCs # 0.0 /100WBC 08/24/24 03:27 Specimen Type Arterial 08/23/24 10:53 Sample Site Radial, left 08/23/24 10:53 ABG pH 7.24 (7.35-7.45) L 08/23/24 10:53 ABG pCO2 16.1 mmHg (35-45) L* 08/23/24 10:53 ABG pO2 118.0 mmHg (80.0-100.0) H 08/23/24 10:53 ABG PO2/FiO2 Ratio 561 08/23/24 10:53 ABG HCO3 6.9 mmol/L (22-26) L 08/23/24 10:53 ABG Base Excess -17.8 mmol/L (-2.0-2.0) L 08/23/24 10:53 Yang Test Pos 08/23/24 10:53 Hematocrit 46.8 % (42-52) 08/23/24 10:53 Hgb O2 Saturation 96.8 % (95-100) 08/23/24 10:53 Carboxyhemoglobin 0.6 %THgb (0.4-20.1) 08/23/24 10:53 Methemoglobin 1.3 % (0.4-1.5) 08/23/24 10:53 Total Hemoglobin 15.3 g/dL (14-18) 08/23/24 10:53 O2 Delivery Device Room air 08/23/24 10:53 FiO2 21.0 % 08/23/24 10:53 Invertebrate Paleontologist ID [place] 08/23/24 10:53 Sodium 131 mmol/L (136-145) L 08/24/24 03:27 Potassium 3.9 mmol/L (3.5-5.1) 08/24/24 08:34 Chloride 99 mmol/L (98-107) 08/24/24 08:34 Carbon Dioxide 20 mmol/L (22-29) L 08/24/24 03:27 Anion Gap 18.9 (5-19) 08/24/24 08:34 BUN 13 mg/dL (6-20) 08/24/24 08:34 Creatinine 0.5 mg/dL (0.7-1.2) L 08/24/24 03:27 GFR Calculation 189.2 mL/min (90-130) H 08/24/24 03:27 Glucose 210 mg/dL (65-115) H 08/24/24 03:27 POC Glucose 319 mg/dL (70-110) H 08/24/24 07:09 Calculated Osmolality 279 mOsm/kg (285-295) L 08/24/24 03:27 Calcium 8.9 mg/dL (8.5-10.5) 08/24/24 08:34 Phosphorus 4.5 mg/dL (2.5-4.5) 08/23/24 10:49 Magnesium 1.7 mg/dL (1.7-2.3) 08/24/24 03:27 Total Bilirubin 0.4 mg/dL (0.15-1.2) 08/24/24 03:27 AST 8 U/L (0-40) 08/24/24 03:27 ALT 8 U/L (0-41) 08/24/24 03:27 Alkaline Phosphatase 63 U/L (40-130) 08/24/24 03:27 Troponin T Baseline < 6 ng/L (0-15) 08/23/24 16:40 Troponin T 120 Minute 7.34 ng/L (0-15) 08/23/24 18:41 Delta Troponin T 1.38657 ABS# (0-10) 08/23/24 18:41 Troponin T Hi Sens 6Hr 6.82 ng/L (0-15) 08/23/24 22:34 Troponin T Hi Sens 6Hr Delta 0.36846 ng/L (0-12) 08/23/24 22:34 Total Protein 5.8 g/dL (6.6-8.7) L D 08/24/24 03:27 Albumin 3.5 g/dL (3.5-5.2) 08/24/24 03:27 Globulin 2.3 g/dL (1.3-4.6) 08/24/24 03:27 Ethyl Alcohol < 10 mg/dL (0-10) 08/23/24 10:49 Serum Ketones Positive (Negative) H 08/23/24 10:49 Vitals Last Vital Signs Temp 98.2 F 08/24/24 08:00 Pulse 101 H 08/24/24 08:00 Resp 16 08/24/24 08:00 BP 138/87 08/24/24 08:00 Pulse Ox 98 08/24/24 08:00 O2 Del Method Room Air 08/24/24 06:00 Discharge Plan Discharge Patient Disposition: Home Condition: Stable Prescriptions: New (DME) blood-glucose meter Kit See Rx Instructions .Route Qty: 1 0RF Rx Instructions: As directed sucralfate [Carafate] 100 mg/mL suspension 1 g PO Q6H 56 Days Qty: 2240 0RF Continued gabapentin 100 mg capsule 200 mg PO TID Qty: 180 2RF polyethylene glycol 3350 [Miralax] 17 gram/dose powder 17 g PO DAILY Qty: 510 0RF Rx Instructions: Take 1-2 scoops daily for the next 3 months to keep stools soft omeprazole 20 mg capsule,delayed release(DR/EC) 20 mg PO DAILY Qty: 30 1RF dicyclomine 10 mg capsule 10 mg PO BID Qty: 60 0RF (DME) accu-check guide glucose test strips See Rx Instructions .Route .MEDSUPPLY Qty: 1 0RF Rx Instructions: As directed (DME) pen needle, diabetic 32 gauge x 5/32 needle See Rx Instructions .Route Qty: 200 1RF Rx Instructions: As directed insulin glargine [Basaglar KwikPen U-100 Insulin] 100 unit/mL (3 mL) insulin pen 20 unit SUBCUT BID Qty: 15 3RF atorvastatin 40 mg tablet 40 mg PO BEDTIME aspirin 81 mg tablet,delayed release (DR/EC) 81 mg PO DAILY carvedilol 3.125 mg tablet 3.125 mg PO BID ondansetron 4 mg tablet,disintegrating 4 mg PO Q8H PRN (Reason: Nausea And Vomiting) insulin glargine [Lantus Solostar U-100 Insulin] 100 unit/mL (3 mL) insulin pen 20 unit SUBCUT BID Discontinued nitroglycerin 0.4 mg tablet, sublingual See Rx Instructions .ROUTE .COMPLEX Rx Instructions: DISSOLVE 1 TABLET UNDER THE TONGUE EVERY 5 MINUTES NEEDED FOR CHEST PAIN. DO NOT EXCEED A TOTAL OF 3 DOSES IN 15 MINUTES. Discharge Orders: Discharge Order (Routine); Ordered 08/24/24 Ordered By: Bam Barragan Referrals: Eva Ramírez NP [Primary Care Provider] - 4-7 days Discharge Diet: Diabetic Discharge Activity: Increase activity as tolerated Patient Instructions: Sucralfate (By mouth) (Carafate), Diabetic Ketoacidosis (DC), Hypoglycemia in a Person with Diabetes (DC), Basic Carbohydrate Counting (DC), Gastroparesis (DC), How to Check your Blood Sugar (DC), Diabetes Type 1: Management (DC), Opioid Safety Activity Restrictions/Additional Instructions: Follow-up with your skin washer within 7 to 10 days Restart your insulin pump at home Have a plan for hypoglycemia should this occur Return for any concerns Make sure glucose monitor order is filled prior to discharge. This Discharge Attestations Time Spent in Discharge Care*: greater than 30 min Status at Discharge: Cognitive status at discharge: cognitively intact, Behavioral status at discharge: cooperative, Quality Metrics Clinical Quality Measures [ No reported AMI, CVA or VTE this stay] Coding Level of Care Code 88453 Total time (in minutes) for Discharge: 31 Diagnoses DKA, type 1 E10.10 Leukocytosis D72.829 GERD (gastroesophageal reflux disease) K21.9
--- NOTE | 2024-08-24 10:54 | PC.NURSE ---
Discharge Note Patient discharged to home, ambulated accompanied by self. Discharge instructions reviewed with patient. All prescriptions sent to pharmacy upon discharge. Belongings returned upon patient discharge. Glucometer reviewed with patient, verbalized understanding of teaching. UPon discharge patient alert/oriented x4 on room air. No wounds or skin issues noted at this time.
== END 2024-08-24 10:54 | disposition home or self-care (01) ==
LOC: ER 11:50 → ICU 11:57
PROVIDERS: Family Medicine; Admitting Provider Internal Medicine; Emergency Provider Emergency Medicine; Visit Provider Internal Medicine
DX: E10.10 Type 1 diabetes mellitus with ketoacidosis without coma (principal); E10.40 Type 1 diabetes mellitus with diabetic neuropathy, unspecified; D72.829 Elevated white blood cell count, unspecified; K21.9 Gastro-esophageal reflux disease without esophagitis; Z96.41 Presence of insulin pump (external) (internal); Z59.01 Sheltered homelessness; Z79.82 Long term (current) use of aspirin; F17.200 Nicotine dependence, unspecified, uncomplicated
CPT/HCPCS: 36415; 36416; 36600; 71045; 80048; 80053; 80307; 82009; 82805; 82962; 83735; 84100; 84484; 85025; 87040; 93005; 96365; 96367; 96372; 96374; 96375; 96376; 99285; G0378; J1171; J1650; J1815; J2405; J2470; J7030

== ENCOUNTER 2024-09-06 17:46 | Emergency (ER) | payer OTHER, MEDICAID, SELFPAY ==
[2024-09-06 17:51] VITALS: BP 91/68; PULSE 137; TEMP 36.3; O2SAT 100
[2024-09-06 18:03] LABS: Glucose Point of Care 345 mg/dL (70-110)
--- NOTE | 2024-09-06 19:01 | W.ED.WEAKNES ---
HPI - Weakness General: Chief complaint: Weakness Stated complaint: weak dizzy Time Seen by Provider: 09/06/24 18:50 History of Present Illness: Patient presents to the ER with complaints of weakness and dizziness for the last 2 days. Patient also been having nausea vomiting not been able keep eating down. Says has been checking his sugars a bit in the 200s has not been given himself any insulin. He only gives himself insulin once again above 300. Review of Systems General: Reports: 10 or more systems reviewed and unremarkable except in HPI and below PFSH ED PFSH: Medical History Abdominal pain Diabetic neuropathy Diabetes type 1, uncontrolled Asthma Diabetes Surgical History No pertinent past surgical history Family History Father CAD (coronary artery disease) Other Hypertension Social History Smoking and tobacco/nicotine status: current every day tobacco/nicotine user Alcohol intake: never Substance/Drug Use: current Physical Exam Const: COMMON NORMALS: no acute distress, average body habitus, patient oriented x3, no limitations, healthy appearing, alert and well nourished HENMT: COMMON NORMALS: normocephalic, atraumatic, hearing grossly normal bilaterally, external ears normal, Normal external nose present and moist oral mucous membranes HEAD & SCALP: normocephalic and atraumatic NOSE: Normal external nose present EXTERNAL EAR: Yes external ears normal Neck/C-Spine: COMMON NORMALS: no JVD Chest: COMMONS NORMALS: normal inspection of the chest and normal palpation of entire chest wall Resp: COMMON NORMALS: normal respiratory effort, No retractions, No use of accessory muscles and clear to auscultation bilaterally AUSCULTATION: clear to auscultation bilaterally Cardio: COMMON NORMALS: no JVD, regular rhythm, S1 normal heart sound present, S2 normal heart sound present, No gallops present (Cardio), No clicks present (Cardio), No murmurs present (Cardio) and No rub (Cardio); negative for regular rate (Tachycardic) RATE: abnormal rate (Tachycardic) RHYTHM: regular rhythm HEART SOUNDS: S1 normal heart sound present and S2 normal heart sound present GI: COMMON NORMALS: Normal to inspection, nondistended, normoactive bowel sounds present, Soft to palpation, non-tender, No hepatosplenomegaly present and no masses PALPATION: Yes Soft to palpation and Yes No hepatosplenomegaly present Neuro: COMMON NORMALS: patient oriented x3 SENSORIUM/ORIENTATION: Yes alert Course Vital Signs: Vital signs: Vital Signs Temperature 97.3 F L 09/06/24 17:51 Pulse Rate 105 H 09/06/24 21:00 Blood Pressure 114/76 09/06/24 21:00 Pulse Oximetry 99 09/06/24 21:00 Oxygen Delivery Me thod Room Air 09/06/24 21:00 MDM - Weakness Medical Decision Making Who presented with weakness fatigue vomiting for last few days. Lab work was obtained. Patient blood sugar originally was 308, gave him 7 units of IV insulin and did come down. Patient was bolused a liter of fluid for Zofran. Patient is feeling a little bit better. Patient be discharged Medical Records I reviewed the patient's medical records. Lab Data I reviewed the patient's lab results. 09/06/24 19:16 09/06/24 19:16 Laboratory Results WBC 7.74 10^3/uL (3.29-11.43) 09/06/24 19:16 RBC 5.62 10^6/uL (3.85-5.65) 09/06/24 19:16 Hgb 16.10 g/dL (11.27-16.99) 09/06/24 19:16 Hct 47.3 % (37-53) 09/06/24 19:16 MCV 84.2 fl (82-101) 09/06/24 19:16 MCH 28.6 pg (27-33) 09/06/24 19:16 MCHC 34.0 g/dL (30-55) 09/06/24 19:16 RDW 12.7 % (12.1-15.1) 09/06/24 19:16 Plt Count 358 10^3/cmm (157-399) 09/06/24 19:16 MPV 8.6 fL (7.4-10.4) 09/06/24 19:16 Neut % (Auto) 61.0 % 09/06/24 19:16 Lymph % (Auto) 30.2 % 09/06/24 19:16 [place] % (Auto) 7.6 % 09/06/24 19:16 Eos % (Auto) 0.4 % 09/06/24 19:16 Baso % (Auto) 0.5 % 09/06/24 19:16 Neut # (Auto) 4.72 10^3/uL (1.8-7.7) 09/06/24 19:16 Lymph # (Auto) 2.3 10^3/uL (0.8-4.8) 09/06/24 19:16 [place] # (Auto) 0.6 10^3/uL (0.2-0.9) 09/06/24 19:16 Eos # (Auto) 0.0 10^3/uL (0.0-0.8) 09/06/24 19:16 Baso # (Auto) 0.0 10^3/uL (0.0-0.1) 09/06/24 19:16 Nucleated RBC % (auto) 0 % 09/06/24 19:16 Nucleated RBCs # 0.0 /100WBC 09/06/24 19:16 Specimen Type Arterial 09/06/24 20:24 Sample Site Brachial, right 09/06/24 20:24 ABG pH 7.37 (7.35-7.45) 09/06/24 20:24 ABG pCO2 21.5 mmHg (35-45) L 09/06/24 20:24 ABG pO2 122.0 mmHg (80.0-100.0) H 09/06/24 20:24 ABG HCO3 12.3 mmol/L (22-26) L 09/06/24 20:24 ABG O2 Saturation 99.1 09/06/24 20:24 ABG Base Excess -10.6 mmol/L (-2.0-2.0) L 09/06/24 20:24 Yang Test N/a 09/06/24 20:24 A-a O2 Gradient 0.0 mmHg (5-10) L 09/06/24 20:24 Hematocrit 45.6 % (42-52) 09/06/24 20:24 Hgb O2 Saturation 96.5 % (95-100) 09/06/24 20:24 Carboxyhemoglobin 1.5 %THgb (0.4-20.1) 09/06/24 20:24 Methemoglobin 1.1 % (0.4-1.5) 09/06/24 20:24 Total Hemoglobin 14.9 g/dL (14-18) 09/06/24 20:24 Sodium 133.0 mmol/L (131-143) 09/06/24 20:24 Potassium 3.1 mmol/L (3.5-5.0) L 09/06/24 20:24 Glucose 253.0 mg/dL (70-115) H 09/06/24 20:24 Ionized Calcium 1.2 mmol/L (1.1-1.4) 09/06/24 20:24 O2 Delivery Device Room air 09/06/24 20:24 Oxygen Equipment Preparer ID [email or web address] 09/06/24 20:24 Sodium 132 mmol/L (136-145) L 09/06/24 19:16 Potassium 4.7 mmol/L (3.5-5.1) 09/06/24 19:16 Chloride 92 mmol/L (98-107) L 09/06/24 19:16 Carbon Dioxide 16 mmol/L (22-29) L 09/06/24 19:16 Anion Gap 28.7 (5-19) H 09/06/24 19:16 BUN 18 mg/dL (6-20) 09/06/24 19:16 Creatinine 0.6 mg/dL (0.7-1.2) L 09/06/24 19:16 GFR Calculation 153.3 mL/min (90-130) H 09/06/24 19:16 Glucose 308 mg/dL (65-115) H 09/06/24 19:16 POC Glucose 284 mg/dL (70-110) H 09/06/24 21:36 Calculated Osmolality 288 mOsm/kg (285-295) 09/06/24 19:16 Lactic Acid 1.4 mmol/L (0.5-2.2) 09/06/24 19:16 Calcium 10.4 mg/dL (8.5-10.5) 09/06/24 19:16 Magnesium 1.8 mg/dL (1.7-2.3) 09/06/24 19:16 Total Bilirubin 0.4 mg/dL (0.15-1.2) 09/06/24 19:16 AST 11 U/L (0-40) 09/06/24 19:16 ALT 13 U/L (0-41) 09/06/24 19:16 Alkaline Phosphatase 84 U/L (40-130) 09/06/24 19:16 Total Protein 7.8 g/dL (6.6-8.7) 09/06/24 19:16 Albumin 4.7 g/dL (3.5-5.2) 09/06/24 19:16 Globulin 3.1 g/dL (1.3-4.6) 09/06/24 19:16 Procalcitonin 0.05 ng/mL (0-0.5) 09/06/24 19:16 Serum Ketones Negative (Negative) 09/06/24 19:16 All radiology interpretation(s) finalized by discharge Discharge Plan Discharge Patient Disposition: Home Clinical Impression: Nausea & vomiting Qualifiers: Vomiting type: unspecified Qualified Code(s): R11.2 - Nausea with vomiting, unspecified Fatigue Qualifiers: Fatigue type: unspecified Qualified Code(s): R53.83 - Other fatigue Condition: Stable Prescriptions: No Action gabapentin 100 mg capsule 200 mg PO TID Qty: 180 2RF polyethylene glycol 3350 [Miralax] 17 gram/dose powder 17 g PO DAILY Qty: 510 0RF Rx Instructions: Take 1-2 scoops daily for the next 3 months to keep stools soft omeprazole 20 mg capsule,delayed release(DR/EC) 20 mg PO DAILY Qty: 30 1RF dicyclomine 10 mg capsule 10 mg PO BID Qty: 60 0RF (DME) accu-check guide glucose test strips See Rx Instructions .Route .MEDSUPPLY Qty: 1 0RF Rx Instructions: As directed (DME) pen needle, diabetic 32 gauge x 5/32 needle See Rx Instructions .Route Qty: 200 1RF Rx Instructions: As directed insulin glargine [Basaglar KwikPen U-100 Insulin] 100 unit/mL (3 mL) insulin pen 20 unit SUBCUT BID Qty: 15 3RF atorvastatin 40 mg tablet 40 mg PO BEDTIME aspirin 81 mg tablet,delayed release (DR/EC) 81 mg PO DAILY carvedilol 3.125 mg tablet 3.125 mg PO BID ondansetron 4 mg tablet,disintegrating 4 mg PO Q8H PRN (Reason: Nausea And Vomiting) insulin glargine [Lantus Solostar U-100 Insulin] 100 unit/mL (3 mL) insulin pen 20 unit SUBCUT BID sucralfate [Carafate] 100 mg/mL suspension 1 g PO Q6H 56 Days Qty: 2240 0RF (DME) blood-glucose meter Kit See Rx Instructions .Route Qty: 1 0RF Rx Instructions: As directed Discharge Orders: Discharge ED (Routine); Ordered 09/06/24 Ordered By: Bucky Lang Referrals: Eva Ramírez EDITORIAL CARTOONIST [Primary Care Provider] - 1 week Patient Instructions: Acute Nausea and Vomiting (ED), Fatigue (ED) Coding Level of Care Code ED Roller Picker for Chg Fwd Related Data Home Medications Medication Instructions Recorded Confirmed aspirin 81 mg tablet,delayed 81 mg PO DAILY 08/15/24 08/23/24 release atorvastatin 40 mg tablet 40 mg PO BEDTIME 08/15/24 08/23/24 carvedilol 3.125 mg tablet 3.125 mg PO BID 08/15/24 08/23/24 insulin glargine 100 unit/mL (3 20 unit SUBCUT BID 08/23/24 08/23/24 mL) subcutaneous pen (Lantus Solostar U-100 Insulin) ondansetron 4 mg disintegrating 4 mg PO Q8H PRN Nausea And Vomiting 08/23/24 08/23/24 tablet Previous Rx's Medication Instructions Recorded insulin glargine 100 unit/mL (3 20 unit (0.2 mL) SUBCUT BID #15 mL 06/09/24 mL) subcutaneous pen (Basaglar KwikPen U-100 Insulin) pen needle, diabetic 32 gauge x #200 ea 07/04/24 accu-check guide glucose test #1 ea 08/09/24 strips dicyclomine 10 mg capsule 10 mg PO BID #60 caps 08/09/24 gabapentin 100 mg capsule 200 mg (2 x 100 mg) PO TID #180 08/09/24 caps omeprazole 20 mg capsule,delayed 20 mg PO DAILY #30 caps 08/09/24 release polyethylene glycol 3350 17 17 g PO DAILY #510 grams 08/09/24 gram/dose oral powder (Miralax) blood-glucose meter #1 ea 08/24/24 sucralfate 100 mg/mL oral 1 g (10 mL) PO Q6H 8 weeks #2,240 08/24/24 suspension (Carafate) mL Allergies Allergy/AdvReac Type Severity Reaction Status Date / Time No Known Allergies Allergy Verified 09/06/24 18:05
[2024-09-06 19:26] LABS: Basophils % 0.5 %; Eosinophils % 0.4 %; Hematocrit 47.3 % (37-53); Lymphocytes # 2.3 10^3/uL (0.8-4.8); Lymphocytes % 30.2 %; Mean Corpuscular Hemoglobin 28.6 pg (27-33); Mean Corpuscular Volume 84.2 fl (82-101); Mean Platelet Volume 8.6 fL (7.4-10.4); Monocytes # 0.6 10^3/uL (0.2-0.9); Monocytes % 7.6 %; Neutrophils # 4.72 10^3/uL (1.8-7.7); Nucleated Red Blood Cells % 0 %; Platelet Count 358 10^3/cmm (157-399); Red Blood Count 5.62 10^6/uL (3.85-5.65); Red Cell Distribution Width 12.7 % (12.1-15.1); White Blood Count 7.74 10^3/uL (3.29-11.43)
[2024-09-06 19:32] VITALS: BP 128/92; PULSE 115; O2SAT 98
[2024-09-06 19:45] LABS: Ketone (Acetest) Serum Negative (Negative)
[2024-09-06 19:53] LABS: Alanine Aminotransferase 13 U/L (0-41); Albumin Level 4.7 g/dL (3.5-5.2); Alkaline Phosphatase 84 U/L (40-130); Anion Gap 28.7 (5-19); Aspartate Amino Transferase 11 U/L (0-40); Blood Urea Nitrogen 18 mg/dL (6-20); Calcium 10.4 mg/dL (8.5-10.5); Carbon Dioxide 16 mmol/L (22-29); Chloride 92 mmol/L (98-107); Creatinine Clr Calc Pharmacy 121.2726; Globulin 3.1 g/dL (1.3-4.6); Glomerular Filtration Rate 153.3 mL/min (90-130); Glucose 308 mg/dL (65-115); Magnesium 1.8 mg/dL (1.7-2.3); Osmolality Calculated 288 mOsm/kg (285-295); Potassium 4.7 mmol/L (3.5-5.1); Sodium 132 mmol/L (136-145); Total Bilirubin 0.4 mg/dL (0.15-1.2); Total Protein 7.8 g/dL (6.6-8.7)
[2024-09-06 20:00] VITALS: BP 133/96; PULSE 117; O2SAT 100
[2024-09-06] MEDS: insulin regular-human 100 units/1 mL 7 UNIT IVP (20:08)
[2024-09-06] MEDS: sodium chloride 0.9% 1,000 ML 999 ML IV (20:21)
[2024-09-06 20:28] LABS: Lactic Sepsis W/Reflex 1.4 mmol/L (0.5-2.2)
[2024-09-06 20:35] LABS: Procalcitonin 0.05 ng/mL (0-0.5)
[2024-09-06 20:35] LABS: ABG PCO2 21.5 mmHg (35-45); ABG PH Result 7.37 (7.35-7.45); Arterial Blood Gas Hematocrit 45.6 % (42-52); Base Excess ABG -10.6 mmol/L (-2.0-2.0); Blood Gas Sample Site Brachial, right; Blood Gas Sample Type Arterial; Carboxyhemoglobin 1.5 %THgb (0.4-20.1); HCO3 ABG 12.3 mmol/L (22-26); HGB O2 Sat 96.5 % (95-100); Ionized Calcium Level - ABG 1.2 mmol/L (1.1-1.4); Methemoglobin 1.1 % (0.4-1.5); Oxygen Device ROOM AIR; Oxygen Saturation ABG 99.1; Potassium Level - ABG 3.1 mmol/L (3.5-5.0); Total Hemoglobin 14.9 g/dL (14-18)
[2024-09-06 21:00] VITALS: BP 114/76; PULSE 105; O2SAT 99
[2024-09-06 21:40] LABS: Glucose Point of Care 284 mg/dL (70-110)
[2024-09-06 22:02] VITALS: BP 114/73; PULSE 106; O2SAT 98
== END 2024-09-06 21:53 | disposition home or self-care (01) ==
PROVIDERS: Emergency Medicine; Emergency Provider Emergency Medicine
DX: R11.2 Nausea with vomiting, unspecified (principal); R53.83 Other fatigue; Z79.82 Long term (current) use of aspirin; Z72.0 Tobacco use; E10.40 Type 1 diabetes mellitus with diabetic neuropathy, unspecified
CPT/HCPCS: 36415; 36416; 36600; 80051; 80053; 82009; 82330; 82805; 82962; 83605; 83735; 84145; 85025; 96374; 99284; J1815; J7030

== ENCOUNTER 2024-11-13 15:35 | Observation (INO) | payer OTHER, MEDICAID, SELFPAY ==
[2024-11-13] VITALS (30 sets, daily range): BP systolic 96–133; BP diastolic 59–85; PULSE 89–124; RESP 14–24; TEMP 36.3–36.7; O2SAT 93–100; BMI 17.0; BMI 16.5
[2024-11-13 15:45] LABS: Glucose Point of Care > 600 mg/dL (70-110)
--- NOTE | 2024-11-13 16:07 | XRR_ITS ---
PROCEDURE INFORMATION: Exam: XR Chest Exam date and time: 11/13/2024 4:17 PM Age: 34 years old Clinical indication: Cough and dyspnea; Additional info: Dyspnea/cough TECHNIQUE: Imaging protocol: Radiologic exam of the chest. Views: 1 view. COMPARISON: CR XR chest 1V portable [id number] 08/23/2024 11:01 AM FINDINGS: Lungs: Unremarkable. No consolidation. Pleural spaces: Unremarkable. No pleural effusion. No pneumothorax. Heart/Mediastinum: Unremarkable. No cardiomegaly. Bones/joints: Unremarkable. XR/XR chest 1V portable [id number] IMPRESSION: No acute findings.
[2024-11-13 16:21] LABS: ABG PCO2 39.3 mmHg (35-45); ABG PH Result 7.41 (7.35-7.45); Alveolar-Arterial Oxygen Gradi 1.7 mmHg (5-10); Arterial Blood Gas Hematocrit 44.2 % (42-52); Base Excess ABG 0.2 mmol/L (-2.0-2.0); Blood Gas Allen Test Pos; Blood Gas Operator Identificat CAK; Blood Gas Sample Site Radial, left; Blood Gas Sample Type Arterial; Carboxyhemoglobin 1.3 %THgb (0.4-20.1); HCO3 ABG 24.8 mmol/L (22-26); Ionized Calcium Level - ABG 1.2 mmol/L (1.1-1.4); Methemoglobin 0.3 % (0.4-1.5); Oxygen Device ROOM AIR; Oxygen Saturation ABG 97.6; PO2 ABG 86.3 mmHg (80.0-100.0); PO2 FiO2 Ratio Arterial Blood 410; Potassium Level - ABG 4.4 mmol/L (3.5-5.0); Total Hemoglobin 14.4 g/dL (14-18)
[2024-11-13 16:27] LABS: Basophils # 0.1 10^3/uL (0.0-0.1); Basophils % 0.9 %; Eosinophils # 0.1 10^3/uL (0.0-0.8); Eosinophils % 1.2 %; Hematocrit 41.5 % (37-53); Lymphocytes # 2.1 10^3/uL (0.8-4.8); Lymphocytes % 32.3 %; Mean Corpuscular HGB Conc 34.2 g/dL (30-55); Mean Corpuscular Volume 84.7 fl (82-101); Mean Platelet Volume 9.2 fL (7.4-10.4); Monocytes # 0.7 10^3/uL (0.2-0.9); Monocytes % 11.4 %; Neutrophils # 3.51 10^3/uL (1.8-7.7); Neutrophils % 53.9 %; Nucleated Red Blood Cells % 0 %; Platelet Count 312 10^3/cmm (157-399); Red Cell Distribution Width 11.9 % (12.1-15.1); White Blood Count 6.51 10^3/uL (3.29-11.43)
--- NOTE | 2024-11-13 16:31 | PC.PHAR ---
Patient states he hasn't taken any Rxs for a few months . Patient states he only has his insulin . Patient states he has only his Lantus with him,then states he took both his Lantius and lispro on 11/12/24.
[2024-11-13 16:46] LABS: Alanine Aminotransferase 8 U/L (0-41); Albumin Level 3.9 g/dL (3.5-5.2); Alkaline Phosphatase 103 U/L (40-130); Anion Gap 18.1 (5-19); Aspartate Amino Transferase 11 U/L (0-40); Blood Urea Nitrogen 20 mg/dL (6-20); Carbon Dioxide 25 mmol/L (22-29); Chloride 86 mmol/L (98-107); Globulin 2.2 g/dL (1.3-4.6); Glomerular Filtration Rate 153.3 mL/min (90-130); Potassium 5.1 mmol/L (3.5-5.1); Sodium 124 mmol/L (136-145); Total Bilirubin 0.2 mg/dL (0.15-1.2); Total Protein 6.1 g/dL (6.6-8.7)
[2024-11-13 16:55] LABS: Osmolality Calculated 297 mOsm/kg (285-295)
[2024-11-13 16:59] LABS: Glucose 758 mg/dL (65-115)
--- NOTE | 2024-11-13 17:11 | ED_ITS ---
HPI - Weakness 2 General: Chief complaint: Weakness Stated complaint: weakness, pain in both feet, fatigue Time Seen by Provider: 11/13/24 16:06 History of Present Illness: 34-year-old male presents emergency room with elevated blood sugars polyuria. He is diabetic he has not been caring for himself appropriately he is on Lantus?regular insulin but he has not been taking appropriately. He has been very weak for the last several days. He denies any fever sweats or chills. He does have diabetic peripheral neuropathy which he said has been worsening lately he is also noticed his vision being off. He is mildly tachypneic and tachycardic on arrival here Associated symptoms: Denies chest pain, chills, dysuria or fever(s) Review of Systems 2 Const: Denies: fever(s) or chills Card: Denies: chest pain Resp: Denies: dyspnea GI: Denies: abdominal pain : Denies: dysuria, urinary frequency or urinary urgency Musc: Denies: neck pain or back pain Skin/Breast: Denies: rash PFSH ED 2 PFSH: Medical History Abdominal pain Diabetic neuropathy Diabetes type 1, uncontrolled Asthma Diabetes Surgical History No pertinent past surgical history Family History Father CAD (coronary artery disease) Other Hypertension Social History Smoking and tobacco/nicotine status: current every day tobacco/nicotine user Alcohol intake: never Substance/Drug Use: current Physical Exam 2 Const: GENERAL APPEARANCE: cooperative ORIENTATION/CONSCIOUSNESS: Yes awake, Yes oriented to person, Yes oriented to place and Yes oriented to time HENMT: COMMON NORMALS: normocephalic, atraumatic and hearing grossly normal bilaterally HEAD & SCALP: normocephalic and atraumatic Resp: COMMON NORMALS: normal respiratory effort, No retractions, No use of accessory muscles and clear to auscultation bilaterally AUSCULTATION: clear to auscultation bilaterally Cardio: COMMON NORMALS: regular rate, regular rhythm and No murmurs present (Cardio) RATE: regular rate RHYTHM: regular rhythm GI: COMMON NORMALS: Soft to palpation and No hepatosplenomegaly present A USCULTATION: Yes normoactive bowel sounds PALPATION: Yes Soft to palpation, No Tenderness to palpation present (GI), No Guarding due to palpation present (GI) and Yes No hepatosplenomegaly present Extremity: COMMON NORMALS: normal to inspection, capillary refill normal, no clubbing, cyanosis or edema, no calf tenderness and no pedal edema OTHER: No skin breakdown or ulcerations on the feet, exquisitely tender to even light touch neurovascular lower extremities are intact without diabetic ulcers Neuro: SENSORIUM/ORIENTATION: Yes oriented to person, Yes oriented to place and Yes oriented to time Skin: COMMON NORMALS: no rashes or lesions noted GENERAL SKIN EXAM: no rashes or lesions noted Course 2 Vital Signs: Vital signs: Vital Signs Temperature 97.4 F L 11/13/24 15:39 Pulse Rate 112 H 11/13/24 17:04 Respiratory Rate 20 H 11/13/24 16:18 Blood Pressure 108/68 11/13/24 17:04 Pulse Oximetry 99 11/13/24 17:04 Oxygen Delivery Me thod Room Air 11/13/24 17:04 MDM - Weakness Medical Decision Making Significant hyperglycemia without evidence of DKA. Anion gap is normal. Will admit for insulin therapy to control blood sugar. Believe he likely is at the verge of DKA and if not treated appropriately will go to to progress to full DKA. Discussed with hospitalist orders written who initiated insulin drip and given IV fluids Medical Records I reviewed the patient's medical records. Lab Data I reviewed the patient's lab results. 11/13/24 16:16 11/13/24 16:16 Radiology Impressions Chest X-Ray 11/13/24 16:07 IMPRESSION: No acute findings. Laboratory Results WBC 6.51 10^3/uL (3.29-11.43) 11/13/24 16:16 RBC 4.90 10^6/uL (3.85-5.65) 11/13/24 16:16 Hgb 14.20 g/dL (11.27-16.99) 11/13/24 16:16 Hct 41.5 % (37-53) 11/13/24 16:16 MCV 84.7 fl (82-101) 11/13/24 16:16 MCH 29.0 pg (27-33) 11/13/24 16:16 MCHC 34.2 g/dL (30-55) 11/13/24 16:16 RDW 11.9 % (12.1-15.1) L 11/13/24 16:16 Plt Count 312 10^3/cmm (157-399) 11/13/24 16:16 MPV 9.2 fL (7.4-10.4) 11/13/24 16:16 Neut % (Auto) 53.9 % 11/13/24 16:16 Lymph % (Auto) 32.3 % 11/13/24 16:16 [place] % (Auto) 11.4 % 11/13/24 16:16 Eos % (Auto) 1.2 % 11/13/24 16:16 Baso % (Auto) 0.9 % 11/13/24 16:16 Neut # (Auto) 3.51 10^3/uL (1.8-7.7) 11/13/24 16:16 Lymph # (Auto) 2.1 10^3/uL (0.8-4.8) 11/13/24 16:16 [place] # (Auto) 0.7 10^3/uL (0.2-0.9) 11/13/24 16:16 Eos # (Auto) 0.1 10^3/uL (0.0-0.8) 11/13/24 16:16 Baso # (Auto) 0.1 10^3/uL (0.0-0.1) 11/13/24 16:16 Nucleated RBC % (auto) 0 % 11/13/24 16:16 Nucleated RBCs # 0.0 /100WBC 11/13/24 16:16 Specimen Type Arterial 11/13/24 16:10 Sample Site Radial, left 11/13/24 16:10 ABG pH 7.41 (7.35-7.45) 11/13/24 16:10 ABG pCO2 39.3 mmHg (35-45) 11/13/24 16:10 ABG pO2 86.3 mmHg (80.0-100.0) 11/13/24 16:10 ABG PO2/FiO2 Ratio 410 11/13/24 16:10 ABG HCO3 24.8 mmol/L (22-26) 11/13/24 16:10 ABG O2 Saturation 97.6 11/13/24 16:10 ABG Base Excess 0.2 mmol/L (-2.0-2.0) 11/13/24 16:10 Yang Test Pos 11/13/24 16:10 A-a O2 Gradient 1.7 mmHg (5-10) L 11/13/24 16:10 Hematocrit 44.2 % (42-52) 11/13/24 16:10 Hgb O2 Saturation 96.0 % (95-100) 11/13/24 16:10 Carboxyhemoglobin 1.3 %THgb (0.4-20.1) 11/13/24 16:10 Methemoglobin 0.3 % (0.4-1.5) L 11/13/24 16:10 Total Hemoglobin 14.4 g/dL (14-18) 11/13/24 16:10 Sodium 122.0 mmol/L (131-143) L 11/13/24 16:10 Potassium 4.4 mmol/L (3.5-5.0) 11/13/24 16:10 Glucose 743.0 mg/dL (70-115) H 11/13/24 16:10 Ionized Calcium 1.2 mmol/L (1.1-1.4) 11/13/24 16:10 O2 Delivery Device Room air 11/13/24 16:10 FiO2 21.0 % 11/13/24 16:10 Residential Door Installer ID Cak 11/13/24 16:10 Sodium 124 mmol/L (136-145) L 11/13/24 16:16 Potassium 5.1 mmol/L (3.5-5.1) 11/13/24 16:16 Chloride 86 mmol/L (98-107) L 11/13/24 16:16 Carbon Dioxide 25 mmol/L (22-29) 11/13/24 16:16 Anion Gap 18.1 (5-19) 11/13/24 16:16 BUN 20 mg/dL (6-20) 11/13/24 16:16 Creatinine 0.6 mg/dL (0.7-1.2) L 11/13/24 16:16 GFR Calculation 153.3 mL/min (90-130) H 11/13/24 16:16 Glucose 758 mg/dL (65-115) H* 11/13/24 16:16 POC Glucose > 600 mg/dL (70-110) H* 11/13/24 15:43 Calculated Osmolality 297 mOsm/kg (285-295) H 11/13/24 16:16 Calcium 9.0 mg/dL (8.5-10.5) 11/13/24 16:16 Total Bilirubin 0.2 mg/dL (0.15-1.2) 11/13/24 16:16 AST 11 U/L (0-40) 11/13/24 16:16 ALT 8 U/L (0-41) 11/13/24 16:16 Alkaline Phosphatase 103 U/L (40-130) 11/13/24 16:16 Total Protein 6.1 g/dL (6.6-8.7) L 11/13/24 16:16 Albumin 3.9 g/dL (3.5-5.2) 11/13/24 16:16 Globulin 2.2 g/dL (1.3-4.6) 11/13/24 16:16 All radiology interpretation(s) finalized by discharge Discharge Plan Discharge Patient Disposition: Admitted As Inpatient Clinical Impression: Diabetes type 1, uncontrolled, Non-compliance, Diabetic neuropathy Condition: Stable Prescriptions: No Action (DME) accu-check guide glucose test strips See Rx Instructions .Route .MEDSUPPLY Qty: 1 0RF Rx Instructions: As directed (DME) pen needle, diabetic 32 gauge x 5/32 needle See Rx Instructions .Route Qty: 200 1RF Rx Instructions: As directed insulin glargine [Lantus Solostar U-100 Insulin] 100 unit/mL (3 mL) insulin pen 20 unit SUBCUT BID (DME) blood-glucose meter Kit See Rx Instructions .Route Qty: 1 0RF Rx Instructions: As directed insulin lispro 100 unit/mL insulin pen 20 unit SUBCUT TID Referrals: Eva Ramírez NP [Primary Care Provider] - Print Language: Georgian Coding Level of Care Code ED Topographic Computator for Chg Fwd Related Data Home Medications ?Medication ?Instructions ?Recorded ?Confirmed insulin glargine 100 unit/mL (3 20 unit SUBCUT BID 11/13/24 mL) subcutaneous pen (Lantus Solostar U-100 Insulin) insulin lispro 100 unit/mL 20 unit SUBCUT TID 11/13/24 11/13/24 subcutaneous pen Previous Rx's ?Medication ?Instructions ?Recorded pen needle, diabetic 32 gauge x #200 ea 07/04/24 accu-check guide glucose test #1 ea 08/09/24 strips blood-glucose meter #1 ea 08/24/24 Allergies Allergy/AdvReac Type Severity Reaction Status Date / Time No Known Allergies Allergy Verified 11/13/24 15:47
[2024-11-13] MEDS: sodium chloride 0.9% 1,000 ML 999 ML IV (17:19)
[2024-11-13] MEDS: insulin regular-human 100 units/1 mL 10 UNIT IVP (17:23)
[2024-11-13] MEDS: INSULIN REGULAR IN 0.9 % NACL 100 UNIT/100 ML BAG 20 UNIT IV ×2 (17:25→18:24)
[2024-11-13 17:32] LABS: Bilirubin Urine Negative (Negative); Blood Urine Negative (Negative); Glucose Urine UA 3+ (Normal); Ketones Urine 1+ (Negative); Leukocyte Esterase Urine Negative (Negative); Nitrate Urine Negative (Negative); Protein Urine Negative (Negative); Urine Appearance Clear (CLEAR); Urine Color Yellow (Yellow); Urobilinogen Urine 0.2 mg/dL (Negative)
[2024-11-13 17:34] LABS: Add Urine Microscopic? YES; Bacteria Urine None Seen /hpf; Hyaline Casts Urine 0-4 /lpf; RBC Urine 0-2 /hpf (0-2); Squamous Epithelial Cell Urine 0-5 /hpf (0-5); WBC Urine 0-5 /hpf (0-5)
[2024-11-13 17:38] LABS: Add Urine Culture? No; Specific Gravity, Urine 1.038 (1.005-1.030)
[2024-11-13 17:44] LABS: Ketone (Acetest) Serum Positive (Negative)
[2024-11-13 17:57] LABS: Glucose Point of Care > 600 mg/dL (70-110)
[2024-11-13] MEDS: sodium chloride 0.9% 1,000 ML 125 ML IV (18:07)
[2024-11-13] MEDS: heparin 5,000 unit/mL INJ 1 mL 5000 UNIT SUBCUT (18:07)
--- NOTE | 2024-11-13 18:27 | PC.NURSE ---
Patient arrived from the ER with an insulin drip running at 20 mls/hr. New insulin drip started at the same rate.
--- NOTE | 2024-11-13 18:32 | PM.HP ---
Providers/Chief Complaint Admitting Physician: Cole Craig Primary Care Provider: Eva Ramírez NP Chief Complaint: weakness, pain in both feet, fatigue History of Present Illness John Lopez is a 34 year old male With a past medical history significant for diabetes mellitus who presented to the hospital with generalized weakness. Patient has also complained of blood sugar issues. He stated that he has been on insulin however has been homeless and not able to take any of his medications. is post be on Lantus and short-acting insulin. He last took his short-acting yesterday however cannot remember the last time he had taken his long-acting. Previously followed with Endocrinology however no longer has been seeing. He does have insurance. He denied any other medical issues however in his previous hospitalizations he was prescribed antihypertensives and statins. He stated that he is now having visual problems primarily in his left eye in addition to worsening neuropathy in both of his lower extremities. He was prescribed gabapentin in the past which he has not been taking either.Upon arrival to the emergency room was noted to be hyperglycemic. He was given 10 units of regular insulin and started on insulin drip. Review of Systems General: Reports: 10 or more systems reviewed and unremarkable except in HPI and below Medications/Allergies Home Medications ?Medication ?Instructions ?Recorded ?Confirmed ?Last Taken ?Type pen needle, diabetic 32 gauge x #200 ea 07/04/24 11/13/24 Unknown Rx accu-check guide glucose test #1 ea 08/09/24 11/13/24 Unknown Rx strips insulin glargine 100 unit/mL (3 20 unit SUBCUT BID 08/23/24 11/13/24 11/12/24 History mL) subcutaneous pen (Lantus Solostar U-100 Insulin) blood-glucose meter #1 ea 08/24/24 11/13/24 Unknown Rx insulin lispro 100 unit/mL 20 unit SUBCUT TID 11/13/24 11/13/24 11/12/24 History subcutaneous pen Allergies Allergy/AdvReac Type Severity Reaction Status Date / Time No Known Allergies Allergy Verified 11/13/24 15:47 PFSH Acute PFSH: Medical History Abdominal pain Diabetic neuropathy Diabetes type 1, uncontrolled Asthma Diabetes Surgical History No pertinent past surgical history Family History Father CAD (coronary artery disease) Other Hypertension Social History Smoking and tobacco/nicotine status: current every day tobacco/nicotine user Alcohol intake: never Substance/Drug Use: current Vitals/I&O/Wt Last Vital Signs Temp 98.0 F 11/13/24 18:15 Pulse 118 H 11/13/24 18:15 Resp 20 H 11/13/24 18:15 BP 114/75 11/13/24 18:15 Pulse Ox 98 11/13/24 18:15 O2 Del Method Room Air 11/13/24 18:15 11/13/24 11/13/24 11/13/24 06:59 14:59 22:59 Intake Total 20 / 20 Balance 20 / 20 Weight last 48 hrs Weight 45 kg Weight 46.448 kg Physical Exam Narrative: General: Alert and oriented, Appears dehydrated Lungs: Clear to auscultation, non-labored respiration. Heart: Normal rate, regular rhythm, no murmur. No LE edema. Abdomen: Soft, non-tender, non-distended, normal bowel sounds. Musculoskeletal: No finger cyanosis. Neurologic: No focal weakness Psychiatric: Cooperative. Data 11/13/24 16:16 11/13/24 16:16 A&P Assessment and plan (1) Diabetes type 1, uncontrolled: (2) Non-compliance: (3) Diabetic neuropathy: Plan Uncontrolled type 1 DM with Hyperglycemia - Presents with blood glucose of 758 likely due to medication non-compliance secondary to homelessness and inability to store insulin. Anion gap of 18.1. Positive ketones. Differential Diagnosis: 1. Medication non-compliance due to social situation. 2. Early diabetic ketoacidosis. Plan: 1. Continue insulin drip, titrate to goal blood glucose 140-180. 2. Aggressive IV fluids for hydration. 3. Repeat metabolic panel to monitor electrolytes 4. Once gluocse stable transition to SQ insulin Diabetic Neuropathy - Noted pain in feet, consistent with diabetic neuropathy in the setting of uncontrolled diabetes. Plan: 1.Restart gabapentin 100 mg three times daily for neuropathic pain. Vision Loss - Noted decreased vision in L>R eyes. Worsening for past 2 months, concerning for diabetic retinopathy vs other etiology. Plan: 1. Ophthalmology consult outpatient evaluation. Hyponatremia - Sodium of 124, likely pseudohyponatremia in the setting of severe hyperglycemia and hyperosmolality. Plan: 1. Repeat sodium level after blood glucose normalizes. Homelessness - Currently homeless, which is impacting ability to manage diabetes and store insulin. Plan: 1. Social work consult for housing resources and assistance. PDMP PDMP Reviewed: Not Reviewed Attestations Medical Necessity Statement*: Patient found to have hyperglycemia requiring IV insulin drip anticipate over 2 midnights stay in hospital for evaluation and treatment. Coding Level of Care Code Acute Code for g Fwd Diagnoses Diabetes type 1, uncontrolled Non-compliance Z91.199 Diabetic neuropathy E11.40
[2024-11-13 19:13] LABS: Glucose Point of Care 202 mg/dL (70-110)
--- NOTE | 2024-11-13 19:23 | PC.NURSE ---
190 blood glucose check 202, contacted Dr. Aldana, new order received for D5NS at 100 ml per hour and continue DKA protocol.
[2024-11-13] MEDS: dextrose 5%-sod chloride 0.9% 1,000 ML 100 ML IV (19:40)
[2024-11-13] MEDS: gabapentin 100 mg Capsule PO (20:05)
[2024-11-13 20:07] LABS: Anion Gap 14.6 (5-19); Blood Urea Nitrogen 22 mg/dL (6-20); Calcium 9.3 mg/dL (8.5-10.5); Carbon Dioxide 26 mmol/L (22-29); Chloride 99 mmol/L (98-107); Glomerular Filtration Rate 189.2 mL/min (90-130); Glucose 130 mg/dL (65-115); Osmolality Calculated 287 mOsm/kg (285-295); Potassium 3.6 mmol/L (3.5-5.1); Sodium 136 mmol/L (136-145)
[2024-11-13 20:11] LABS: Glucose Point of Care 211 mg/dL (70-110)
[2024-11-13] MEDS: insulin glargine 100 units/1 mL 15 UNIT SUBCUT (21:18)
[2024-11-13 21:25] LABS: Glucose Point of Care 222 mg/dL (70-110)
[2024-11-14] VITALS (46 sets, daily range): BP systolic 106–139; BP diastolic 69–92; PULSE 90–122; RESP 0–22; TEMP 36.8; O2SAT 96–99
[2024-11-14] MEDS: heparin 5,000 unit/mL INJ 1 mL 5000 UNIT SUBCUT ×2 (01:28→10:05)
[2024-11-14 01:34] LABS: Glucose Point of Care 268 mg/dL (70-110)
[2024-11-14] MEDS: acetaminophen 325 mg Tablet 650 MG PO (01:41)
[2024-11-14 04:53] LABS: Estmated Average Glucose 315; Hemoglobin A1C 12.6 % (4.0-6.0)
[2024-11-14 05:05] LABS: Anion Gap 15.8 (5-19); Blood Urea Nitrogen 20 mg/dL (6-20); Calcium 8.7 mg/dL (8.5-10.5); Carbon Dioxide 25 mmol/L (22-29); Chloride 98 mmol/L (98-107); Chol HDL Ratio 4.58 mg/dL (1.0-5.00); Cholesterol 174 mg/dL (0-200); Glomerular Filtration Rate 189.2 mL/min (90-130); Glucose 329 mg/dL (65-115); HDL Cholesterol 38 mg/dL (60-100); LDL Cholesterol Calculated 106 mg/dL (50-129); LDL HDL Ratio 2.79 RATIO (0.00-3.22); Magnesium 1.8 mg/dL (1.7-2.3); Osmolality Calculated 295 mOsm/kg (285-295); Potassium 3.8 mmol/L (3.5-5.1); Sodium 135 mmol/L (136-145); Thyroid Stimulating Hormone 1.42 uIU/mL (0.27-4.20); Triglycerides 148 mg/dL (0-150)
[2024-11-14 06:04] LABS: Glucose Point of Care 285 mg/dL (70-110)
[2024-11-14 07:07] LABS: Glucose Point of Care 363 mg/dL (70-110)
[2024-11-14] MEDS: insulin lispro 100 unit/1 mL SUBCUT ×2 (07:40→11:38)
[2024-11-14] MEDS: gabapentin 100 mg Capsule PO (08:03)
--- NOTE | 2024-11-14 10:55 | P.DS_ITS ---
Discharge Providers Date of Admission: 11/13/24 17:15 Date of Discharge: November 14, 2024 Attending Provider at Admission: Cole Craig Attending Provider at Discharge: Cole Craig Primary Care Provider: Eva Ramírez NP Diagnoses at Discharge Discharge Diagnosis (1) Diabetes type 1, uncontrolled: Status: Acute (2) Non-compliance: Status: Acute (3) Diabetic neuropathy: Status: Acute Reason for Visit Reason for Visit: weakness, pain in both feet, fatigue Hospital Course Hospital Course 34 year old male With a past medical history significant for diabetes mellitus who presented to the hospital with generalized weakness. Patient has also complained of blood sugar issues. He stated that he has been on insulin however has been homeless and not able to take any of his medications. is post be on Lantus and short-acting insulin. He last took his short-acting yesterday however cannot remember the last time he had taken his long-acting. Previously followed with Endocrinology however no longer has been seeing. He does have insurance. He denied any other medical issues however in his previous hospitalizations he was prescribed antihypertensives and statins. He stated that he is now having visual problems primarily in his left eye in addition to worsening neuropathy in both of his lower extremities. He was prescribed gabapentin in the past which he has not been taking either.Upon arrival to the emergency room was noted to be hyperglycemic. He was given 10 units of regular insulin and started on insulin drip which was transitioned to SQ insulin. He was tolerating oral intake. Stated he already actually had insulin at home. Discharge in stable condition. Advised follow up with PCP and Endocrinology. Physical Exam Narrative: General: Alert and oriented, Appears dehydrated Lungs: Clear to auscultation, non-labored respiration. Heart: Normal rate, regular rhythm, no murmur. No LE edema. Abdomen: Soft, non-tender, non-distended, normal bowel sounds. Musculoskeletal: No finger cyanosis. Neurologic: No focal weakness Psychiatric: Cooperative. Discharge Data Studies Completed and Pending Completed Studies During Hospitalization Category Date Time Status XR chest 1V portable [id number] Stat Exams 11/13/24 16:07 Completed Radiology Impressions Chest X-Ray 11/13/24 16:07 IMPRESSION: No acute findings. Laboratory Results WBC 6.51 10^3/uL (3.29-11.43) 11/13/24 16:16 RBC 4.90 10^6/uL (3.85-5.65) 11/13/24 16:16 Hgb 14.20 g/dL (11.27-16.99) 11/13/24 16:16 Hct 41.5 % (37-53) 11/13/24 16:16 MCV 84.7 fl (82-101) 11/13/24 16:16 MCH 29.0 pg (27-33) 11/13/24 16:16 MCHC 34.2 g/dL (30-55) 11/13/24 16:16 RDW 11.9 % (12.1-15.1) L 11/13/24 16:16 Plt Count 312 10^3/cmm (157-399) 11/13/24 16:16 MPV 9.2 fL (7.4-10.4) 11/13/24 16:16 Neut % (Auto) 53.9 % 11/13/24 16:16 Lymph % (Auto) 32.3 % 11/13/24 16:16 [place] % (Auto) 11.4 % 11/13/24 16:16 Eos % (Auto) 1.2 % 11/13/24 16:16 Baso % (Auto) 0.9 % 11/13/24 16:16 Neut # (Auto) 3.51 10^3/uL (1.8-7.7) 11/13/24 16:16 Lymph # (Auto) 2.1 10^3/uL (0.8-4.8) 11/13/24 16:16 [place] # (Auto) 0.7 10^3/uL (0.2-0.9) 11/13/24 16:16 Eos # (Auto) 0.1 10^3/uL (0.0-0.8) 11/13/24 16:16 Baso # (Auto) 0.1 10^3/uL (0.0-0.1) 11/13/24 16:16 Nucleated RBC % (auto) 0 % 11/13/24 16:16 Nucleated RBCs # 0.0 /100WBC 11/13/24 16:16 Specimen Type Arterial 11/13/24 16:10 Sample Site Radial, left 11/13/24 16:10 ABG pH 7.41 (7.35-7.45) 11/13/24 16:10 ABG pCO2 39.3 mmHg (35-45) 11/13/24 16:10 ABG pO2 86.3 mmHg (80.0-100.0) 11/13/24 16:10 ABG PO2/FiO2 Ratio 410 11/13/24 16:10 ABG HCO3 24.8 mmol/L (22-26) 11/13/24 16:10 ABG O2 Saturation 97.6 11/13/24 16:10 ABG Base Excess 0.2 mmol/L (-2.0-2.0) 11/13/24 16:10 Yang Test Pos 11/13/24 16:10 A-a O2 Gradient 1.7 mmHg (5-10) L 11/13/24 16:10 Hematocrit 44.2 % (42-52) 11/13/24 16:10 Hgb O2 Saturation 96.0 % (95-100) 11/13/24 16:10 Carboxyhemoglobin 1.3 %THgb (0.4-20.1) 11/13/24 16:10 Methemoglobin 0.3 % (0.4-1.5) L 11/13/24 16:10 Total Hemoglobin 14.4 g/dL (14-18) 11/13/24 16:10 Sodium 122.0 mmol/L (131-143) L 11/13/24 16:10 Potassium 4.4 mmol/L (3.5-5.0) 11/13/24 16:10 Glucose 743.0 mg/dL (70-115) H 11/13/24 16:10 Ionized Calcium 1.2 mmol/L (1.1-1.4) 11/13/24 16:10 O2 Delivery Device Room air 11/13/24 16:10 FiO2 21.0 % 11/13/24 16:10 Senior Telecommunications Consultant ID Cak 11/13/24 16:10 Sodium 135 mmol/L (136-145) L 11/14/24 03:22 Potassium 3.8 mmol/L (3.5-5.1) 11/14/24 03:22 Chloride 98 mmol/L (98-107) 11/14/24 03:22 Carbon Dioxide 25 mmol/L (22-29) 11/14/24 03:22 Anion Gap 15.8 (5-19) 11/14/24 03:22 BUN 20 mg/dL (6-20) 11/14/24 03:22 Creatinine 0.5 mg/dL (0.7-1.2) L 11/14/24 03:22 GFR Calculation 189.2 mL/min (90-130) H 11/14/24 03:22 Glucose 329 mg/dL (65-115) H 11/14/24 03:22 POC Glucose 363 mg/dL (70-110) H 11/14/24 07:04 Estimat Average Glucose 315 11/14/24 03:22 Hemoglobin A1c 12.6 % (4.0-6.0) H 11/14/24 03:22 Calculated Osmolality 295 mOsm/kg (285-295) 11/14/24 03:22 Calcium 8.7 mg/dL (8.5-10.5) 11/14/24 03:22 Magnesium 1.8 mg/dL (1.7-2.3) 11/14/24 03:22 Total Bilirubin 0.2 mg/dL (0.15-1.2) 11/13/24 16:16 AST 11 U/L (0-40) 11/13/24 16:16 ALT 8 U/L (0-41) 11/13/24 16:16 Alkaline Phosphatase 103 U/L (40-130) 11/13/24 16:16 Total Protein 6.1 g/dL (6.6-8.7) L 11/13/24 16:16 Albumin 3.9 g/dL (3.5-5.2) 11/13/24 16:16 Globulin 2.2 g/dL (1.3-4.6) 11/13/24 16:16 Triglycerides 148 mg/dL (0-150) 11/14/24 03:22 Cholesterol 174 mg/dL (0-200) 11/14/24 03:22 LDL Cholesterol, Calc 106 mg/dL (50-129) 11/14/24 03:22 HDL Cholesterol 38 mg/dL (60-100) L 11/14/24 03:22 LDL/HDL Ratio 2.79 RATIO (0.00-3.22) 11/14/24 03:22 Cholesterol/HDL Ratio 4.58 mg/dL (1.0-5.00) 11/14/24 03:22 TSH 1.42 uIU/mL (0.27-4.20) 11/14/24 03:22 Urine Color Yellow (Yellow) 11/13/24 17:00 Urine Appearance Clear (CLEAR) 11/13/24 17:00 Urine pH 5.0 (5-7) 11/13/24 17:00 Ur Specific [place] 1.038 (1.005-1.030) H 11/13/24 17:00 Urine Protein Negative (Negative) 11/13/24 17:00 Urine Glucose (UA) 3+ (Normal) H 11/13/24 17:00 Urine Ketones 1+ (Negative) H 11/13/24 17:00 Urine Blood Negative (Negative) 11/13/24 17:00 Urine Nitrate Negative (Negative) 11/13/24 17:00 Urine Bilirubin Negative (Negative) 11/13/24 17:00 Urine Urobilinogen 0.2 mg/dL (Negative) 11/13/24 17:00 Ur Leukocyte Esterase Negative (Negative) 11/13/24 17:00 Urine RBC 0-2 /hpf (0-2) 11/13/24 17:00 Urine WBC 0-5 /hpf (0-5) 11/13/24 17:00 Ur Squamous Epith Cells 0-5 /hpf (0-5) 11/13/24 17:00 Amorphous Sediment Not Reportable 11/13/24 17:00 Urine Bacteria None seen /hpf (NONE) 11/13/24 17:00 Hyaline Casts 0-4 /lpf H 11/13/24 17:00 Serum Ketones Positive (Negative) H 11/13/24 16:16 Vitals Last Vital Signs Temp 98.2 F 11/14/24 05:59 Pulse 114 H 11/14/24 08:00 Resp 20 H 11/14/24 08:00 BP 132/84 11/14/24 08:00 Pulse Ox 99 11/14/24 08:00 O2 Del Method Room Air 11/14/24 08:00 Discharge Plan Discharge Patient Disposition: Home Condition: Stable Prescriptions: New gabapentin 100 mg Capsule 100 mg PO TID Qty: 90 0RF carvedilol [Coreg] 3.125 mg tablet 3.125 mg PO BID Qty: 60 0RF Rx Instructions: must administer with a meal/food Continued (DME) accu-check guide glucose test strips See Rx Instructions .Route .MEDSUPPLY Qty: 1 0RF Rx Instructions: As directed (DME) pen needle, diabetic 32 gauge x 5/32 needle See Rx Instructions .Route Qty: 200 1RF Rx Instructions: As directed (DME) blood-glucose meter Kit See Rx Instructions .Route Qty: 1 0RF Rx Instructions: As directed insulin lispro 100 unit/mL insulin pen 20 unit SUBCUT TID Qty: 15 0RF insulin glargine [Lantus Solostar U-100 Insulin] 100 unit/mL (3 mL) insulin pen 20 unit SUBCUT BID Qty: 15 0RF Discharge Orders: Discharge Order (Routine); Ordered 11/14/24 Ordered By: Cole Craig Referrals: Eva Ramírez NP [Primary Care Provider] - 4-7 days (office will call you with an appt. ) Zane Villa MD [Physician] - 12/22/24 11:15 am Discharge Diet: Diabetic Discharge Activity: Increase activity as tolerated Patient Instructions: Type 1 Diabetes, Gabapentin (By mouth), Carvedilol (By mouth), Basic Carbohydrate Counting (DC), Diabetic Neuropathy (DC), Opioid Safety Discharge Attestations Time Spent in Discharge Care*: greater than 30 min Status at Discharge: Cognitive status at discharge: cognitively intact , Behavioral status at discharge: cooperative , Functional status at discharge: independent ambulation , Overall status at discharge: patient is back to baseline Quality Metrics Clinical Quality Measures [ No reported AMI, CVA or VTE this stay] Coding Level of Care Code Acute Code for Chg Fwd Diagnoses Diabetes type 1, uncontrolled Non-compliance Z91.199 Diabetic neuropathy E11.40
[2024-11-14 11:22] LABS: Glucose Point of Care 274 mg/dL (70-110)
--- NOTE | 2024-11-14 12:08 | PC.NURSE ---
Patient was discharged with all their belongings. Patient was given all discharge instructions and prescriptions. Patient's IV was taken out. Patient was stable during discharge.
== END 2024-11-14 11:53 | disposition home or self-care (01) ==
LOC: ER 17:13 → ICU 11-14 10:47
PROVIDERS: Emergency Medicine; Internal Medicine; Admitting Provider Hospitalist; Emergency Provider Family Medicine; Visit Provider Hospitalist
DX: E10.65 Type 1 diabetes mellitus with hyperglycemia (principal); E10.40 Type 1 diabetes mellitus with diabetic neuropathy, unspecified; E87.1 Hypo-osmolality and hyponatremia; F17.200 Nicotine dependence, unspecified, uncomplicated; Z79.4 Long term (current) use of insulin; Z59.00 Homelessness unspecified; Z91.148 Patient's other noncompliance with medication regimen for other reason; H54.3 Unqualified visual loss, both eyes
CPT/HCPCS: 36415; 36416; 36600; 71045; 80048; 80051; 80053; 80061; 81001; 82009; 82330; 82805; 82962; 83036; 83735; 84443; 85025; 96372; 96374; 99285; G0378; J1644; J1815; J7030; J7042; J9999

== ENCOUNTER 2025-02-24 15:05 | Emergency (ER) | payer OTHER, MEDICAID, SELFPAY ==
--- NOTE | 2025-02-24 15:07 | ED_ITS ---
HPI - Male Genitourinary 2 General: Chief complaint: Urogenital-Male Stated complaint: testicular pain Time Seen by Provider: 02/24/25 15:06 Source: patient Mode of arrival: EMS Limitations: no limitations History of Present Illness: Patient is a 34-year-old male who presents to ED today from the walk-in clinic for further evaluation of testicular pain. He states he has had pain for approximately 4 months or so but it seems to be worsening. He states this was worked up once before in [place] with ultrasound imaging of his scrotum/testicles as well as CT imaging but nothing was found. He was encouraged to follow-up with urology but was unable to make this appointment. He states he is homeless so it is difficult to get to [place]. He complains of a vein that runs near his medial right thigh that is painful and is also having severe pain to his sac (scrotum). Patient has never noticed any swelling or redness. He has never noticed any masses or bulges to his groins. He is not complaining of abdominal pain. Patient states he is a diabetic. He has neuropathy to his legs and states his pain feels nerve like . MD Complaint: testicle pain Onset (ago): month(s) Duration: constant Location: right testicle, left testicle, right inguinal region and left inguinal region Severity: severe Severity scale (1-10): >10 Relieving factors: none Exacerbating factors: none Associated symptoms: Reports nausea; Deny dysuria, hematuria, urinary incontinence or vomiting Related Data Previous Rx's ?Medication ?Instructions ?Recorded pen needle, diabetic 32 gauge x #200 ea 07/04/24 accu-check guide glucose test #1 ea 08/09/24 strips blood-glucose meter #1 ea 08/24/24 gabapentin 100 mg capsule 100 mg PO TID #90 caps 11/14 insulin glargine 100 unit/mL (3 20 unit (0.2 mL) SUBCU T BID #15 mL 11/14/24 mL) subcutaneous pen (Lantus Solostar U-100 Insulin) insulin lispro 100 unit/mL 20 unit (0.2 mL) SUBCUT TID #15 mL 11/14/24 subcutaneous pen Allergies Allergy/AdvReac Type Severity Reaction Status Date / Time No Known Allergies Allergy Verified 02/24/25 14:24 Review of Systems 2 Const: Denies: fever(s), chills, body aches, fatigue or malaise Card: Denies: chest pain Resp: Denies: dyspnea GI: Reports: nausea; Denies: abdominal pain, vomiting, diarrhea or change in bowel habits : Reports: testicular pain; Denies: flank pain, difficulty urinating, dysuria, urinary frequency, urinary urgency, urinary hesitancy, difficulty starting urination, urinary incontinence, hematuria, penile discharge, testicular mass or scrotal swelling Musc: Denies: back pain PFSH ED 2 PFSH: Medical History Abdominal pain Diabetic neuropathy Diabetes type 1, uncontrolled Asthma Diabetes Surgical History No pertinent past surgical history Family History Father CAD (coronary artery disease) Other Hypertension Social History Smoking and tobacco/nicotine status: current every day tobacco/nicotine user Alcohol intake: never Substance/Drug Use: current Physical Exam 2 Const: COMMON NORMALS: no acute distress, average body habitus, no limitations, alert and well nourished GENERAL APPEARANCE: cooperative Resp: COMMON NORMALS: normal respiratory effort and clear to auscultation bilaterally AUSCULTATION: clear to auscultation bilaterally Cardio: COMMON NORMALS: regular rate and regular rhythm RATE: regular rate RHYTHM: regular rhythm GI: COMMON NORMALS: Normal to inspection, nondistended, normoactive bowel sounds present, Soft to palpation, non-tender, No hepatosplenomegaly present and no masses PALPATION: Yes Soft to palpation and Yes No hepatosplenomegaly present : COMMON NORMALS: Yes no CVA tenderness BLADDER/KIDNEY EXAM: Yes no CVA tenderness PENIS: normal penis MEATUS: meatus normal SCROTUM: Yes testes descended bilaterally, No inguinal hernia, Yes Scrotal tenderness present, No erythematous, No ecchymosis, No edematous, No scrotal swelling and No scrotal mass TESTES: Yes testicular lie normal OTHER: pt has exquisite tenderness to bilateral testicles and throughout scrotum; he has bilateral inguinal genital warts; he has no obvious physical abnormalities including masses/bulges, no scrotal swelling, palpation of testicles are normal apart from it produces exquisite pain; testicles lie normal; no penile discharge; no lesions apart from the warts Back/Pelvis: COMMON NORMALS: no CVA tenderness and thoracic and lumbar spine normal to inspection Extremity: COMMON NORMALS: normal to inspection, full ROM, capillary refill normal, no joint enlargement, no clubbing, cyanosis or edema, no calf tenderness and no pedal edema NARRATIVE EXTREMITY EXAM: Patient has exquisite tenderness to palpation of his right medial thigh without any form of physical abnormalities appreciated GENERAL: Yes normal exam except as noted RIGHT LOWER EXTREMITY: Yes upper leg Neuro: COMMON NORMALS: moves all extremities, no focal motor deficits, no sensory deficits noted and gait normal SENSORIUM/ORIENTATION: Yes alert Course 2 Vital Signs: Vital signs: Vital Signs Temperature 98.2 F 02/24/25 15:12 Pulse Rate 98 02/24/25 15:12 Respiratory Rate 18 02/24/25 15:12 Blood Pressure 105/79 02/24/25 15:12 Pulse Oximetry 94 02/24/25 15:12 Oxygen Delivery Me thod Room Air 02/24/25 15:12 MDM - Male Medical Decision Making Blood work overall is unremarkable. UA does not look suspicious for infection. CT scan showing no evidence for inguinal hernias. He has flow to bilateral testicles. Small bilateral hydroceles but they should not be causing the significant discomfort he is having. Very small right sided epididymal head cyst versus spermatocele. I think most likely diagnosis at this time would include a neuralgia type pain. This would include possible involvement of genitofemoral/ilioinguinal/posterior scrotal nerves as these travel to the scrotum. Not sure if an entrapment of these would cause his medial thigh pain- somthing like a genitofemoral, pudendal, obturator, isolated sacral might cause this? These often times are injured in surgery although patient does not provide this history. Ultimately I feel his care will be difficult as there are social constraints (he is homeless) and often cannot make it to appointments-especially if there are out of town. Patient does feel like he may be able to get a ride to [place] thus case management referral for urology there has been placed. I think this will be a good starting point for patient. He can continue to follow-up with primary care in the meantime. Medical Records I reviewed the patient's medical records. Lab Data I reviewed the patient's lab results. 02/24/25 15:14 02/24/25 15:14 Radiology Impressions Scrotum Ultrasound 02/24/25 15:23 IMPRESSION: 1. Normal flow in both testicles. No evidence of torsion. 2. Small bilateral hydroceles. 3. Right-sided epididymal head cyst versus spermatocele. Laboratory Results WBC 8.36 10^3/uL (3.29-11.43) 02/24/25 15:14 RBC 5.21 10^6/uL (3.85-5.65) 02/24/25 15:14 Hgb 14.90 g/dL (11.27-16.99) 02/24/25 15:14 Hct 43.9 % (37-53) 02/24/25 15:14 MCV 84.3 fl (82-101) 02/24/25 15:14 MCH 28.6 pg (27-33) 02/24/25 15:14 MCHC 33.9 g/dL (30-55) 02/24/25 15:14 RDW 12.5 % (12.1-15.1) 02/24/25 15:14 Plt Count 391 10^3/cmm (157-399) 02/24/25 15:14 MPV 8.5 fL (7.4-10.4) 02/24/25 15:14 Neut % (Auto) 49.1 % 02/24/25 15:14 Lymph % (Auto) 37.2 % 02/24/25 15:14 [place] % (Auto) 11.0 % 02/24/25 15:14 Eos % (Auto) 1.6 % 02/24/25 15:14 Baso % (Auto) 1.0 % 02/24/25 15:14 Neut # (Auto) 4.11 10^3/uL (1.8-7.7) 02/24/25 15:14 Lymph # (Auto) 3.1 10^3/uL (0.8-4.8) 02/24/25 15:14 [place] # (Auto) 0.9 10^3/uL (0.2-0.9) 02/24/25 15:14 Eos # (Auto) 0.1 10^3/uL (0.0-0.8) 02/24/25 15:14 Baso # (Auto) 0.1 10^3/uL (0.0-0.1) 02/24/25 15:14 Nucleated RBC % (auto) 0 % 02/24/25 15:14 Nucleated RBCs # 0.0 /100WBC 02/24/25 15:14 Sodium 135 mmol/L (136-145) L 02/24/25 15:14 Potassium 3.9 mmol/L (3.5-5.1) 02/24/25 15:14 Chloride 99 mmol/L (98-107) 02/24/25 15:14 Carbon Dioxide 21 mmol/L (22-29) L 02/24/25 15:14 Anion Gap 18.9 (5-19) 02/24/25 15:14 BUN 18 mg/dL (6-20) 02/24/25 15:14 Creatinine 0.5 mg/dL (0.7-1.2) L 02/24/25 15:14 GFR Calculation 189.2 mL/min (90-130) H 02/24/25 15:14 Glucose 99 mg/dL (65-115) 02/24/25 15:14 Calculated Osmolality 282 mOsm/kg (285-295) L 02/24/25 15:14 Calcium 10.1 mg/dL (8.5-10.5) 02/24/25 15:14 Total Bilirubin 0.3 mg/dL (0.15-1.2) 02/24/25 15:14 AST 9 U/L (0-40) 02/24/25 15:14 ALT 6 U/L (0-41) 02/24/25 15:14 Alkaline Phosphatase 80 U/L (40-130) 02/24/25 15:14 Total Protein 7.4 g/dL (6.6-8.7) 02/24/25 15:14 Albumin 4.5 g/dL (3.5-5.2) 02/24/25 15:14 Globulin 2.9 g/dL (1.3-4.6) 02/24/25 15:14 Urine Color Dark yellow (Yellow) A 02/24/25 16:17 Urine Appearance Cloudy (CLEAR) A 02/24/25 16:17 Urine pH 5.5 (5-7) 02/24/25 16:17 Ur Specific [place] 1.031 (1.005-1.030) H 02/24/25 16:17 Urine Protein 1+ (Negative) A 02/24/25 16:17 Urine Glucose (UA) 1+ (Normal) H 02/24/25 16:17 Urine Ketones 1+ (Negative) H 02/24/25 16:17 Urine Blood Negative (Negative) 02/24/25 16:17 Urine Nitrate Negative (Negative) 02/24/25 16:17 Urine Bilirubin Negative (Negative) 02/24/25 16:17 Urine Urobilinogen 1.0 mg/dL (Negative) 02/24/25 16:17 Ur Leukocyte Esterase Negative (Negative) 02/24/25 16:17 Urine RBC 0-2 /hpf (0-2) 02/24/25 16:17 Urine WBC 0-5 /hpf (0-5) 02/24/25 16:17 Ur Squamous Epith Cells 11-20 /hpf (0-5) H 02/24/25 16:17 Amorphous Sediment Not Reportable 02/24/25 16:17 Urine Bacteria None seen /hpf (NONE) 02/24/25 16:17 Hyaline Casts 7.01 /lpf 02/24/25 16:17 All radiology interpretation(s) finalized by discharge Discharge Plan Discharge Patient Disposition: Home Clinical Impression: Pain in scrotum Condition: Stable Prescriptions: No Action (DME) accu-check guide glucose test strips See Rx Instructions .Route .MEDSUPPLY Qty: 1 0RF Rx Instructions: As directed (DME) pen needle, diabetic 32 gauge x 5/32 needle See Rx Instructions .Route Qty: 200 1RF Rx Instructions: As directed (DME) blood-glucose meter Kit See Rx Instructions .Route Qty: 1 0RF Rx Instructions: As directed gabapentin 100 mg Capsule 100 mg PO TID Qty: 90 0RF insulin lispro 100 unit/mL insulin pen 20 unit SUBCUT TID Qty: 15 0RF insulin glargine [Lantus Solostar U-100 Insulin] 100 unit/mL (3 mL) insulin pen 20 unit SUBCUT BID Qty: 15 0RF Discharge Orders: Discharge ED (Routine); Ordered 02/24/25 Ordered By: Ximena Slaughter Referrals: Eva Ramírez NP [Primary Care Provider, Family Practice] Activity Restrictions/Additional Instructions: As we discussed, case management should reach out to you early next week to help set you up with your follow-up appointment with urology. You may continue to follow-up with primary care in the meantime. Print Language: Hebrew Coding Level of Care Code ED Veterinarian Epidemiologist for [facility] [employer]ges
[2025-02-24 15:12] VITALS: BP 105/79; PULSE 98; RESP 18; TEMP 36.8; O2SAT 94; BMI 18.3
[2025-02-24 15:23] LABS: Basophils # 0.1 10^3/uL (0.0-0.1); Eosinophils # 0.1 10^3/uL (0.0-0.8); Eosinophils % 1.6 %; Hematocrit 43.9 % (37-53); Lymphocytes # 3.1 10^3/uL (0.8-4.8); Lymphocytes % 37.2 %; Mean Corpuscular HGB Conc 33.9 g/dL (30-55); Mean Corpuscular Hemoglobin 28.6 pg (27-33); Mean Corpuscular Volume 84.3 fl (82-101); Mean Platelet Volume 8.5 fL (7.4-10.4); Monocytes # 0.9 10^3/uL (0.2-0.9); Neutrophils # 4.11 10^3/uL (1.8-7.7); Neutrophils % 49.1 %; Nucleated Red Blood Cells % 0 %; Platelet Count 391 10^3/cmm (157-399); Red Blood Count 5.21 10^6/uL (3.85-5.65); Red Cell Distribution Width 12.5 % (12.1-15.1); White Blood Count 8.36 10^3/uL (3.29-11.43)
--- NOTE | 2025-02-24 15:23 | USR_ITS ---
PROCEDURE INFORMATION: Exam: US Scrotum Exam date and time: 02/24/2025 4:54 PM Age: 34 years old Clinical indication: Scrotum pain; Additional info: Testicular/scrotal pain; Eval inguinals TECHNIQUE: Imaging protocol: Real-time ultrasound of the scrotum and contents with color Doppler and image documentation. COMPARISON: CT abdomen pelvis w con* [id number] 07/19/2024 10:15 PM FINDINGS: Right testicle: The right testicle is normal in echogenicity, size and flow. Right testicle measures 3.9 x 1.9 x 2.6 cm. Small hydrocele. Left testicle: The left testicle is normal in echogenicity, size and flow. Left testicle measures 3.4 x 1.7 x 2.5 cm. Small hydrocele. Epididymides: The epididymi demonstrate normal echotexture and vascularity. Prominent right epididymal head cyst versus spermatocele measuring 9 mm. US/US scrotum [id number] IMPRESSION: 1. Normal flow in both testicles. No evidence of torsion. 2. Small bilateral hydroceles. 3. Right-sided epididymal head cyst versus spermatocele.
[2025-02-24 15:42] LABS: Alanine Aminotransferase 6 U/L (0-41); Albumin Level 4.5 g/dL (3.5-5.2); Alkaline Phosphatase 80 U/L (40-130); Anion Gap 18.9 (5-19); Aspartate Amino Transferase 9 U/L (0-40); Blood Urea Nitrogen 18 mg/dL (6-20); Calcium 10.1 mg/dL (8.5-10.5); Carbon Dioxide 21 mmol/L (22-29); Chloride 99 mmol/L (98-107); Creatinine Clr Calc Pharmacy 145.5271; Globulin 2.9 g/dL (1.3-4.6); Glomerular Filtration Rate 189.2 mL/min (90-130); Glucose 99 mg/dL (65-115); Osmolality Calculated 282 mOsm/kg (285-295); Potassium 3.9 mmol/L (3.5-5.1); Sodium 135 mmol/L (136-145); Total Bilirubin 0.3 mg/dL (0.15-1.2); Total Protein 7.4 g/dL (6.6-8.7)
[2025-02-24] MEDS: ketorolac 60 mg/2 mL INJ IM (16:18)
[2025-02-24 16:27] LABS: Bilirubin Urine Negative (Negative); Blood Urine Negative (Negative); Glucose Urine UA 1+ (Normal); Ketones Urine 1+ (Negative); Leukocyte Esterase Urine Negative (Negative); Nitrate Urine Negative (Negative); Protein Urine 1+ (Negative); Urine Appearance Cloudy (CLEAR); Urine Color Dark Yellow (Yellow); pH Urine 5.5 (5-7)
[2025-02-24 16:29] LABS: Add Urine Microscopic? YES; Bacteria Urine None Seen /hpf; Hyaline Casts Urine 7.01 /lpf; RBC Urine 0-2 /hpf (0-2); WBC Urine 0-5 /hpf (0-5)
[2025-02-24 16:42] LABS: Specific Gravity, Urine 1.031 (1.005-1.030)
[2025-02-24 18:04] VITALS: RESP 18
--- NOTE | 2025-02-28 12:00 | DCPLANNER ---
Addendum entered by Damaris Hoffman 02/28/25 16:27: [facility] called they do not take his insurance sent referral to [facility]. Original Note: [facility]rology referral [facility] to [facility] [place]
== END 2025-02-24 18:04 | disposition home or self-care (01) ==
PROVIDERS: Emergency Provider Physician Assistant
DX: N50.82 Scrotal pain (principal); Z79.4 Long term (current) use of insulin; Z72.0 Tobacco use; E10.40 Type 1 diabetes mellitus with diabetic neuropathy, unspecified
CPT/HCPCS: 36415; 76870; 80053; 81001; 85025; 96372; 99284; J1885

== ENCOUNTER 2025-02-25 16:44 | Emergency (ER) | payer OTHER, MEDICAID, SELFPAY ==
[2025-02-25 16:58] VITALS: BP 97/55; PULSE 120; RESP 16; TEMP 36.7; O2SAT 100; BMI 16.6
--- NOTE | 2025-02-25 17:10 | ED_ITS ---
HPI - Male Genitourinary General: Chief complaint: Urogenital-Male Stated complaint: testicular pain Time Seen by Provider: 02/25/25 16:47 History of Present Illness: 34-year-old male diagnosed with bilatera l hydroceles on testicular ultrasound yesterday return to ED with testicular pain. Patient states that he is to follow-up with primary care physician for possible urology follow-up. He denies any sexual activity for multiple years. He states he is homeless, and returned due to pain. Ultrasound testicles: US/US scrotum [id number] IMPRESSION: 1. Normal flow in both testicles. No kylee dence of torsion. 2. Small bilateral hydroceles. 3. Right-sided epididymal head cyst vers us spermatocele. Laboratory data was unremarkable yesterday and reviewed. Urine analysis was unremarkable Associated symptoms: Deny dysuria, nausea or vomiting Related Data Previous Rx's ?Medication ?Instructions ?Recorded pen needle, diabetic 32 gauge x #200 ea 07/04/24 accu-check guide glucose test #1 ea 08/09/24 strips blood-glucose meter #1 ea 08/24/24 gabapentin 100 mg capsule 100 mg PO TID #90 caps 11/14 insulin glargine 100 unit/mL (3 20 unit (0.2 mL) SUBCU T BID #15 mL 11/14/24 mL) subcutaneous pen (Lantus Solostar U-100 Insulin) insulin lispro 100 unit/mL 20 unit (0.2 mL) SUBCUT TID #15 mL 11/14/24 subcutaneous pen Allergies Allergy/AdvReac Type Severity Reaction Status Date / Time No Known Allergies Allergy Verified 02/24/25 14:24 Review of Systems General: Reports: 10 or more systems reviewed and unremarkable except in HPI and below Const: Denies: fever(s) or chills Eyes: Denies: change in vision or blurry vision ENMT: Denies: throat pain or mouth pain Card: Denies: chest pain or palpitations GI: Denies: abdominal pain, nausea or vomiting : Reports: testicular pain; Denies: flank pain, dysuria or urinary urgency Skin/Breast: Denies: rash or pruritus Neuro: Denies: headache(s) or numbness in extremities Psych: Denies: anxiety or depression Endo: Denies: polyuria or polydipsia [place]ie/Lymph: Denies: easy bruising or easy bleeding PFSH ED PFSH: Medical History Abdominal pain Diabetic neuropathy Diabetes type 1, uncontrolled Asthma Diabetes Surgical History No pertinent past surgical history Family History Father CAD (coronary artery disease) Other Hypertension Social History Smoking and tobacco/nicotine status: current every day tobacco/nicotine user Alcohol intake: never Substance/Drug Use: current Physical Exam Const: COMMON NORMALS: no acute distress, average body habitus and patient oriented x3 HENMT: COMMON NORMALS: normocephalic and atraumatic HEAD & SCALP: normocephalic and atraumatic Neck/C-Spine: COMMON NORMALS: full ROM, no lymphadenopathy and no JVD Lymph: LYMPHATIC: no lymphadenopathy noted Cardio: COMMON NORMALS: no JVD, regular rate and regular rhythm RATE: regular rate RHYTHM: regular rhythm GI: COMMON NORMALS: Normal to inspection, nondistended, normoactive bowel sounds present, Soft to palpation and non-tender PALPATION: Yes Soft to palpation : COMMON NORMALS: Yes no CVA tenderness and Yes no scrotal swelling BLADDER/KIDNEY EXAM: Yes no CVA tenderness Back/Pelvis: COMMON NORMALS: no CVA tenderness Extremity: COMMON NORMALS: normal to inspection and full ROM Neuro: COMMON NORMALS: patient oriented x3 Psych: COMMON NORMALS: mental status grossly normal and Normal thought process present THOUGHT PROCESS: Normal thought process present Skin: COMMON NORMALS: no rashes or lesions noted and no wounds GENERAL SKIN EXAM: no rashes or lesions noted Course Vital Signs: Vital signs: Vital Signs Temperature 98.0 F 02/25/25 16:58 Pulse Rate 103 H 02/25/25 18:49 Respiratory Rate 16 02/25/25 16:58 Blood Pressure 111/85 02/25/25 18:49 Pulse Oximetry 95 02/25/25 18:49 Oxygen Delivery Me thod Room Air 02/25/25 16:58 MDM - Male Medical Decision Making 34-year-old male presented with testicle pain stating that he could not follow- up with urology because he was homeless and did not have a ride. After discussion with patient, I noted he could call Medicaid to arrange a ride. He is initially supposed to see his primary care physician, and see if he needs to be referred to urology as per previous providers note. Patient now admits to this. Denies any recent sexual contact. Refused to obtain swab from penis secretions for wet prep, however chlamydia and gonorrhea are negative. Less likely the cause. Ultrasound and laboratory data from yesterday reviewed. Lab Data Laboratory Results C. trachomatis (PCR) Not detected 02/25/25 18:21 N. gonorrhoeae (PCR) Not detected 02/25/25 18:21 No radiology studies performed this visit Discharge Plan Discharge Patient Disposition: Home Clinical Impression: Testicular pain Qualifiers: Laterality: bilateral Qualified Code(s): N50.811 - Right testicular pain Condition: Stable Prescriptions: No Action (DME) accu-check guide glucose test strips See Rx Instructions .Route .MEDSUPPLY Qty: 1 0RF Rx Instructions: As directed (DME) pen needle, diabetic 32 gauge x 5/32 needle See Rx Instructions .Route Qty: 200 1RF Rx Instructions: As directed (DME) blood-glucose meter Kit See Rx Instructions .Route Qty: 1 0RF Rx Instructions: As directed gabapentin 100 mg Capsule 100 mg PO TID Qty: 90 0RF insulin lispro 100 unit/mL insulin pen 20 unit SUBCUT TID Qty: 15 0RF insulin glargine [Lantus Solostar U-100 Insulin] 100 unit/mL (3 mL) insulin pen 20 unit SUBCUT BID Qty: 15 0RF Discharge Orders: Discharge ED (Routine); Ordered 02/25/25 Ordered By: Karen Desouza Referrals: Eva Ramírez NP [Primary Care Provider, Family Practice] Discharge Diet: Usual diet and Diabetic Discharge Activity: Resume usual activity Patient Instructions: Hydrocele Activity Restrictions/Additional Instructions: Ice, elevate testicles Follow-up with your primary care physician. They may want to refer you to urology. Your hydroceles are small, however you also have a small amount of epididymial cyst versus spermatic cord, which may be an issue to visit with a specialist regarding. Ibuprofen, Tylenol for pain. You did not want to wait for results, which is fine, if they are abnormal, I will send appropriate medication to pharmacy, and call you on the phone of file. As we discussed, make sure your phone number is correct that we have on file. Print Language: [place] Coding Level of Care Code ED Post Office Manager for [facility] Bridges
[2025-02-25 18:49] VITALS: BP 111/85; PULSE 103; O2SAT 95
[2025-02-25 20:08] LABS: Chlamydia Trachomatis NOT DETECTED; Neisseria Gonorrhea NOT DETECTED
== END 2025-02-25 18:51 | disposition home or self-care (01) ==
PROVIDERS: Emergency Provider Physician Assistant
DX: N50.811 Right testicular pain (principal); Z79.4 Long term (current) use of insulin; Z72.0 Tobacco use; E10.40 Type 1 diabetes mellitus with diabetic neuropathy, unspecified
CPT/HCPCS: 87491; 87591; 99283

== ENCOUNTER → 2025-03-05 15:54 | Outpatient (BNVA) | payer OTHER, MEDICAID, SELFPAY | DX: N43.3 Hydrocele, unspecified (principal) | CPT/HCPCS: 81000; 87086 ==

== ENCOUNTER 2025-03-08 12:43 | Outpatient (CLI) | payer OTHER, MEDICAID, SELFPAY ==
--- NOTE | 2025-03-08 12:45 | USCV_ITS ---
John Lopez Age: 34 Gender: M : 1990 Exam Date: 03/08/2025 12:49 Ordering Phys: Eva Ramírez NP Technologist: ROGE Exam Location: [facility] [place] Indication: pain HISTORY: Lower extremity pain. PROCEDURES: Venous duplex imaging was performed in only the right lower extremity. FINDINGS: Normal 2-D Doppler and augmentation and compressibility throughout the lower extremity venous structures. Additional imaging through the proximal calf veins also reveals no thrombus. Limited evaluation of the greater saphenous vein is patent with no thrombus. CONCLUSIONS No evidence of right lower extremity DVT. Marcell Copeland MD (Electronically Signed) Final Date: 08 March 2025 15:51 S
== END 2025-03-08 12:44 | disposition home or self-care (01) ==
LOC: RAD 12:43
DX: M79.604 Pain in right leg (principal)
CPT/HCPCS: 93971

== ENCOUNTER → 2025-05-29 09:00 | Outpatient (BNVA) | payer OTHER, MEDICAID, SELFPAY | PROVIDERS: Visit Provider Family Medicine | DX: E11.9 Type 2 diabetes mellitus without complications (principal); E11.40 Type 2 diabetes mellitus with diabetic neuropathy, unspecified; E78.2 Mixed hyperlipidemia | CPT/HCPCS: 80053; 80061; 82607; 83036; 84439; 84443; 85025 ==